=== PATIENT | male | born 1970 | race Caucasian/White ===

== ENCOUNTER 2019-05-24 17:55 | Emergency (ER) | payer MEDICAID ==
[~2019-05-24] VITALS: Ht 175.3 cm; Wt 70.0 kg
[2019-05-24 18:57] LABS: BASOPHILS # (AUTO) 0.1 X10'3 (0-0.2); BASOPHILS % (AUTO) 0.7 % (0-1); EOSINOPHILS # (AUTO) 0.1 X10'3 (0-0.9); EOSINOPHILS % (AUTO) 1.6 % (0-6); HEMATOCRIT 43.6 % (42.0-52.0); HEMOGLOBIN 15.4 g/dl (14.0-17.9); LYMPHOCYTES % (AUTO) 11.7 % (21-51); MEAN CORPUSCULAR HEMOGLOBIN 32.3 PG (27.0-31.0); MEAN CORPUSCULAR HGB CONC 35.2 g/dL (33.0-36.5); MEAN CORPUSCULAR VOLUME 91.6 FL (78-98); MEAN PLATELET VOLUME 7.1 FL (7.4-10.4); MONOCYTES # (AUTO) 0.5 X10'3 (0-0.9); MONOCYTES % (AUTO) 6.1 % (2-12); NEUTROPHILS % (AUTO) 79.9 % (42-75); PLATELET COUNT 326 X10'3 (140-440); RED BLOOD COUNT 4.76 X10'6 (4.70-6.10); RED CELL DISTRIBUTION WIDTH 13.3 % (11.5-14.5); WHITE BLOOD COUNT 8.8 X10'3 (4.5-11.0)
[2019-05-24 19:05] LABS: URINE AMPHETAMINE SCREEN NEGATIVE (Neg); URINE BARBITUATE SCREEN NEGATIVE (Neg); URINE BENZODIAZEPINES SCREEN NEGATIVE (Neg); URINE CANNABINOID SCREEN NEGATIVE (Neg); URINE COCAINE SCREEN NEGATIVE (Neg); URINE METHADONE SCREEN NEGATIVE (Neg); URINE OPIATE SCREEN NEGATIVE (Neg); URINE PHENCYCLIDINE SCREEN NEGATIVE (Neg)
[2019-05-24 19:06] LABS: ALANINE AMINOTRANSFERASE 28 U/L (12-78); ALBUMIN 3.4 G/DL (3.4-5.0); ALKALINE PHOSPHATASE 97 IU/L (46-116); ANION GAP 11 (8-16); ASPARTATE AMINO TRANSFERASE 19 U/L (10-37); BILIRUBIN,TOTAL 0.3 MG/DL (0.1-1.0); BLOOD UREA NITROGEN 12 MG/DL (7-18); BUN/CREATININE RATIO 12.5 (5.4-32.0); CALCIUM 7.8 MG/DL (8.5-10.1); CHLORIDE 104 MMOL/L (99-107); CREATININE 0.96 MG/DL (0.60-1.10); ETHANOL 0.208 GM/DL (0.0-0.010); GLUCOSE 102 MG/DL (70-104); POTASSIUM 3.6 MMOL/L (3.5-5.1); SODIUM 141 MMOL/L (135-145); TOTAL CARBON DIOXIDE 26.1 MMOL/L (24-32); TOTAL PROTEIN 6.7 G/DL (6.4-8.2); eGFR 84 ML/MIN
[2019-05-24 20:34] VITALS: BP 118/66
== END 2019-05-24 20:35 | disposition home or self-care (01) ==
LOC: ER 17:56
DX: F41.9 Anxiety disorder, unspecified (principal); F10.920 Alcohol use, unspecified with intoxication, uncomplicated; F31.9 Bipolar disorder, unspecified; F29 Unspecified psychosis not due to a substance or known physiological condition; F15.90 Other stimulant use, unspecified, uncomplicated; Z88.8 Allergy status to other drugs, medicaments and biological substances; Y90.9 Presence of alcohol in blood, level not specified
CPT/HCPCS: 36415; 80053; 80305; 80320; 85025; 99284

== ENCOUNTER 2019-06-20 20:06 | Emergency (ER) | payer MEDICAID ==
[~2019-06-20] VITALS: Ht 175.3 cm; Wt 68.2 kg
[2019-06-20 21:23] LABS: BASOPHILS % (AUTO) 0.7 % (0-1); EOSINOPHILS % (AUTO) 0.2 % (0-6); HEMATOCRIT 40.3 % (42.0-52.0); HEMOGLOBIN 14.4 g/dl (14.0-17.9); LYMPHOCYTES # (AUTO) 0.7 X10'3 (1.1-4.8); MEAN CORPUSCULAR HEMOGLOBIN 31.5 PG (27.0-31.0); MEAN CORPUSCULAR HGB CONC 35.6 g/dL (33.0-36.5); MEAN CORPUSCULAR VOLUME 88.6 FL (78-98); MEAN PLATELET VOLUME 6.3 FL (7.4-10.4); MONOCYTES # (AUTO) 0.4 X10'3 (0-0.9); MONOCYTES % (AUTO) 8.3 % (2-12); NEUTROPHILS # (AUTO) 3.3 X10'3 (1.8-7.7); NEUTROPHILS % (AUTO) 75.8 % (42-75); PLATELET COUNT 265 X10'3 (140-440); RED BLOOD COUNT 4.55 X10'6 (4.70-6.10); RED CELL DISTRIBUTION WIDTH 12.7 % (11.5-14.5); WHITE BLOOD COUNT 4.4 X10'3 (4.5-11.0)
[2019-06-20 21:32] LABS: ALANINE AMINOTRANSFERASE 103 U/L (12-78); ALBUMIN/GLOBULIN RATIO 1.1 (1.1-1.5); ALKALINE PHOSPHATASE 191 IU/L (46-116); ANION GAP 9 (8-16); ASPARTATE AMINO TRANSFERASE 74 U/L (10-37); BILIRUBIN,TOTAL 0.7 MG/DL (0.1-1.0); BLOOD UREA NITROGEN 10 MG/DL (7-18); BUN/CREATININE RATIO 14.3 (5.4-32.0); CALCIUM 7.6 MG/DL (8.5-10.1); CHLORIDE 104 MMOL/L (99-107); GLUCOSE 115 MG/DL (70-104); POTASSIUM 3.8 MMOL/L (3.5-5.1); SODIUM 144 MMOL/L (135-145); TOTAL CARBON DIOXIDE 30.7 MMOL/L (24-32); TOTAL PROTEIN 5.8 G/DL (6.4-8.2); eGFR > 90 ML/MIN
[2019-06-20 21:34] LABS: TROPONIN I < 0.04 NG/ML (0.0-0.05)
[2019-06-20] MEDS ORDERED: ONDA4TAB6 PO (21:57)
[2019-06-20] MEDS ORDERED: normal saline 1000ML IV soln IVB ONE ×2 (22:30→22:40)
[2019-06-21 00:25] VITALS: BP 151/91
== END 2019-06-21 00:16 | disposition home or self-care (01) ==
LOC: ER 20:07
DX: R07.89 Other chest pain (principal); K29.70 Gastritis, unspecified, without bleeding; R42 Dizziness and giddiness; R11.2 Nausea with vomiting, unspecified; Z88.8 Allergy status to other drugs, medicaments and biological substances
CPT/HCPCS: 36415; 71045; 80053; 84484; 85025; 93005; 96360; 99284; J7030

== ENCOUNTER 2019-08-08 19:42 | Emergency (ER) | payer MEDICAID ==
[~2019-08-08] VITALS: Ht 175.3 cm; Wt 72.7 kg
[~2019-08-08 19:42] MED LIST: ONDA4TAB6 PO
[2019-08-08] MEDS ORDERED: ondansetron/PF 4mg/2ml inj IV ONE ×2 (21:15)
[2019-08-08] MEDS ORDERED: normal saline 1000ML IV soln IVB ONE (21:15)
[2019-08-08] MEDS ORDERED: LORazepam 2 mg/ml vial IV ONE (21:15)
[2019-08-08 21:44] LABS: BASOPHILS % (AUTO) 0.3 % (0-1); EOSINOPHILS % (AUTO) 0.3 % (0-6); HEMATOCRIT 38.8 % (42.0-52.0); HEMOGLOBIN 13.8 g/dl (14.0-17.9); LYMPHOCYTES # (AUTO) 0.9 X10'3 (1.1-4.8); LYMPHOCYTES % (AUTO) 19.6 % (21-51); MEAN CORPUSCULAR HGB CONC 35.6 g/dL (33.0-36.5); MEAN PLATELET VOLUME 7.2 FL (7.4-10.4); MONOCYTES # (AUTO) 0.6 X10'3 (0-0.9); MONOCYTES % (AUTO) 13.2 % (2-12); NEUTROPHILS # (AUTO) 2.9 X10'3 (1.8-7.7); NEUTROPHILS % (AUTO) 66.6 % (42-75); PLATELET COUNT 269 X10'3 (140-440); RED BLOOD COUNT 4.31 X10'6 (4.70-6.10); RED CELL DISTRIBUTION WIDTH 14.1 % (11.5-14.5); WHITE BLOOD COUNT 4.4 X10'3 (4.5-11.0)
[2019-08-08 21:52] LABS: ALANINE AMINOTRANSFERASE 26 U/L (12-78); ALBUMIN 3.5 G/DL (3.4-5.0); ALBUMIN/GLOBULIN RATIO 1.1 (1.1-1.5); ALKALINE PHOSPHATASE 70 IU/L (46-116); ANION GAP 12 (8-16); ASPARTATE AMINO TRANSFERASE 25 U/L (10-37); BILIRUBIN,TOTAL 0.4 MG/DL (0.1-1.0); BLOOD UREA NITROGEN 12 MG/DL (7-18); BUN/CREATININE RATIO 13.3 (5.4-32.0); CALCIUM 8.3 MG/DL (8.5-10.1); CHLORIDE 105 MMOL/L (99-107); ETHANOL 0.052 GM/DL (0.0-0.010); GLUCOSE 101 MG/DL (70-104); LIPASE 95 U/L (73-393); POTASSIUM 3.7 MMOL/L (3.5-5.1); SODIUM 142 MMOL/L (135-145); TOTAL CARBON DIOXIDE 25.4 MMOL/L (24-32); TOTAL PROTEIN 6.6 G/DL (6.4-8.2); eGFR 90 ML/MIN
[2019-08-08] MEDS ORDERED: ONDA4TAB6 PO (22:13)
[2019-08-08] MEDS ORDERED: folic acid 1mg/0.2ml inj IV ONE (22:15)
[2019-08-08] MEDS ORDERED: thiamine 100mg/ml 2ml inj. IV ONE (22:15)
[2019-08-08] MEDS ORDERED: folic acid 1mg tablet PO STA (22:22)
[2019-08-08] MEDS ORDERED: thiamine 100mg tablet PO STA (22:22)
[2019-08-08 22:28] VITALS: BP 153/102
== END 2019-08-08 22:29 | disposition home or self-care (01) ==
LOC: ER 19:42
DX: R11.2 Nausea with vomiting, unspecified (principal); R19.7 Diarrhea, unspecified; F10.129 Alcohol abuse with intoxication, unspecified; F20.9 Schizophrenia, unspecified; F41.9 Anxiety disorder, unspecified; F31.9 Bipolar disorder, unspecified; F29 Unspecified psychosis not due to a substance or known physiological condition; Z88.8 Allergy status to other drugs, medicaments and biological substances; Z79.899 Other long term (current) drug therapy; Y90.9 Presence of alcohol in blood, level not specified
CPT/HCPCS: 36415; 80053; 80320; 83690; 85025; 96361; 96374; 96375; 99284; J2060; J2405; J7030

== ENCOUNTER 2019-09-28 02:10 | Emergency (ER) | payer MEDICAID ==
[~2019-09-28] VITALS: Ht 175.3 cm; Wt 72.7 kg
[2019-09-28] MEDS ORDERED: thiamine 100mg/ml 2ml inj. IV ONE (02:30)
[2019-09-28] MEDS ORDERED: normal saline 1000ml 1,000 ML IV ONE (02:30)
--- NOTE | 2019-09-28 02:41 | NUR ---
pt reported feeling nauseous. informed [facility]-received verbal order for zofran iv 4mg x1 dose now. ordered as requested
[2019-09-28] MEDS ORDERED: ondansetron/PF 4mg/2ml inj IV ONE (02:45)
[2019-09-28 02:48] LABS: BASOPHILS % (AUTO) 0.6 % (0-1); EOSINOPHILS % (AUTO) 0.9 % (0-6); HEMATOCRIT 39.4 % (42.0-52.0); HEMOGLOBIN 13.8 g/dl (14.0-17.9); LYMPHOCYTES # (AUTO) 0.8 X10'3 (1.1-4.8); MEAN CORPUSCULAR HEMOGLOBIN 32.3 PG (27.0-31.0); MEAN CORPUSCULAR HGB CONC 35.1 g/dL (33.0-36.5); MEAN PLATELET VOLUME 7.6 FL (7.4-10.4); MONOCYTES # (AUTO) 0.3 X10'3 (0-0.9); MONOCYTES % (AUTO) 7.8 % (2-12); NEUTROPHILS % (AUTO) 71.7 % (42-75); PLATELET COUNT 242 X10'3 (140-440); RED BLOOD COUNT 4.28 X10'6 (4.70-6.10); RED CELL DISTRIBUTION WIDTH 14.6 % (11.5-14.5); WHITE BLOOD COUNT 4.2 X10'3 (4.5-11.0)
[2019-09-28 02:57] LABS: ALANINE AMINOTRANSFERASE 35 U/L (12-78); ALBUMIN 3.4 G/DL (3.4-5.0); ALBUMIN/GLOBULIN RATIO 1.2 (1.1-1.5); ALKALINE PHOSPHATASE 86 IU/L (46-116); ANION GAP 7 (8-16); ASPARTATE AMINO TRANSFERASE 30 U/L (10-37); BILIRUBIN,TOTAL 0.4 MG/DL (0.1-1.0); BLOOD UREA NITROGEN 5 MG/DL (7-18); BUN/CREATININE RATIO 5.7 (5.4-32.0); CHLORIDE 106 MMOL/L (99-107); CREATININE 0.87 MG/DL (0.60-1.10); GLUCOSE 120 MG/DL (70-104); POTASSIUM 3.2 MMOL/L (3.5-5.1); SODIUM 144 MMOL/L (135-145); TOTAL CARBON DIOXIDE 30.8 MMOL/L (24-32); TOTAL PROTEIN 6.2 G/DL (6.4-8.2); eGFR > 90 ML/MIN
[2019-09-28 03:00] LABS: TROPONIN I < 0.04 NG/ML (0.0-0.05)
[2019-09-28 03:55] VITALS: BP 148/67
== END 2019-09-28 03:56 | disposition home or self-care (01) ==
LOC: ER 02:11
DX: F10.129 Alcohol abuse with intoxication, unspecified (principal); R42 Dizziness and giddiness; R51 Headache; F41.9 Anxiety disorder, unspecified; F31.9 Bipolar disorder, unspecified; R79.1 Abnormal coagulation profile; Z88.8 Allergy status to other drugs, medicaments and biological substances; Z79.899 Other long term (current) drug therapy; Y90.0 Blood alcohol level of less than 20 mg/100 ml
CPT/HCPCS: 36415; 70450; 80053; 80320; 82948; 84484; 85025; 85610; 93005; 96361; 96374; 96375; 99285; J2405; J3411; J7030; 99284

== ENCOUNTER 2019-10-05 15:47 | Emergency (ER) | payer MEDICAID ==
[~2019-10-05] VITALS: Ht 175.3 cm; Wt 75.0 kg
[2019-10-05 16:14] VITALS: BP 127/97
[2019-10-05] MEDS ORDERED: LORazepam 2 mg/ml vial IV ONE (16:20)
[2019-10-05] MEDS ORDERED: normal saline 1000ML IV soln IVB ONE ×2 (16:20→16:55)
[2019-10-05 16:35] LABS: BASOPHILS % (AUTO) 0.4 % (0-1); EOSINOPHILS % (AUTO) 0 % (0-6); HEMOGLOBIN 14.5 g/dl (14.0-17.9); LYMPHOCYTES # (AUTO) 0.7 X10'3 (1.1-4.8); MEAN CORPUSCULAR HEMOGLOBIN 31.9 PG (27.0-31.0); MEAN CORPUSCULAR HGB CONC 34.5 g/dL (33.0-36.5); MEAN CORPUSCULAR VOLUME 92.6 FL (78-98); MEAN PLATELET VOLUME 7.5 FL (7.4-10.4); MONOCYTES # (AUTO) 0.4 X10'3 (0-0.9); MONOCYTES % (AUTO) 9.5 % (2-12); NEUTROPHILS # (AUTO) 3.4 X10'3 (1.8-7.7); NEUTROPHILS % (AUTO) 74.1 % (42-75); PLATELET COUNT 287 X10'3 (140-440); RED BLOOD COUNT 4.54 X10'6 (4.70-6.10); RED CELL DISTRIBUTION WIDTH 14.5 % (11.5-14.5); WHITE BLOOD COUNT 4.7 X10'3 (4.5-11.0)
[2019-10-05 16:46] LABS: ALBUMIN 3.4 G/DL (3.4-5.0); ANION GAP 10 (8-16); CALCIUM 8.2 MG/DL (8.5-10.1); CHLORIDE 104 MMOL/L (99-107); GLUCOSE 119 MG/DL (70-104); SODIUM 140 MMOL/L (135-145); TOTAL CARBON DIOXIDE 26.2 MMOL/L (24-32); eGFR > 90 ML/MIN
[2019-10-05] MEDS ORDERED: potassium Cl 10 mEq/100mL bag IV ONE (16:55)
[2019-10-05] MEDS ORDERED: potassium Cl 20 mEq SR tablet PO ONE (16:55)
[2019-10-05 16:57] LABS: BLOOD UREA NITROGEN 4 MG/DL (7-18); POTASSIUM 2.9 MMOL/L (3.5-5.1)
[2019-10-05] MEDS ORDERED: POTA-82 PO (17:11)
[2019-10-05 17:26] LABS: MAGNESIUM 1.9 MG/DL (1.5-2.4)
--- NOTE | 2019-10-05 18:59 | NUR ---
[facility]AN CALLED FOR PT - WAS TOLD THAT IT WOULD BE A 45 MIN WAIT
== END 2019-10-05 19:17 | disposition home or self-care (01) ==
LOC: ER 15:48
DX: F10.20 Alcohol dependence, uncomplicated (principal); F41.9 Anxiety disorder, unspecified; F15.10 Other stimulant abuse, uncomplicated; E87.6 Hypokalemia; R00.0 Tachycardia, unspecified; R11.10 Vomiting, unspecified; Z88.8 Allergy status to other drugs, medicaments and biological substances; Z79.899 Other long term (current) drug therapy; Y90.9 Presence of alcohol in blood, level not specified
CPT/HCPCS: 36415; 80048; 83735; 85025; 93005; 96361; 96365; 96375; 99284; J2060; J3480; J7030

== ENCOUNTER 2019-10-09 13:14 | Emergency (ER) | payer MEDICAID ==
[~2019-10-09] VITALS: Ht 175.3 cm; Wt 72.7 kg
[~2019-10-09 13:14] MED LIST changes: +POTA-82 PO
[2019-10-09] MEDS ORDERED: LORazepam 2 mg/ml vial IV ONE (13:35)
[2019-10-09] MEDS ORDERED: ondansetron/PF 4mg/2ml inj IV ONE (13:35)
[2019-10-09] MEDS ORDERED: normal saline 1000ML IV soln IVB ONE ×2 (13:35→16:35)
[2019-10-09 14:03] LABS: BASOPHILS % (AUTO) 0.2 % (0-1); EOSINOPHILS % (AUTO) 0 % (0-6); HEMATOCRIT 45.1 % (42.0-52.0); HEMOGLOBIN 15.4 g/dl (14.0-17.9); LYMPHOCYTES # (AUTO) 0.6 X10'3 (1.1-4.8); LYMPHOCYTES % (AUTO) 5.3 % (21-51); MEAN CORPUSCULAR HEMOGLOBIN 31.9 PG (27.0-31.0); MEAN CORPUSCULAR HGB CONC 34.1 g/dL (33.0-36.5); MEAN CORPUSCULAR VOLUME 93.5 FL (78-98); MEAN PLATELET VOLUME 7.6 FL (7.4-10.4); MONOCYTES # (AUTO) 0.8 X10'3 (0-0.9); MONOCYTES % (AUTO) 7.4 % (2-12); NEUTROPHILS # (AUTO) 9.6 X10'3 (1.8-7.7); NEUTROPHILS % (AUTO) 87.1 % (42-75); PLATELET COUNT 271 X10'3 (140-440); RED BLOOD COUNT 4.82 X10'6 (4.70-6.10); WHITE BLOOD COUNT 11.1 X10'3 (4.5-11.0)
[2019-10-09 14:12] LABS: ALANINE AMINOTRANSFERASE 45 U/L (12-78); ALBUMIN 3.6 G/DL (3.4-5.0); ALBUMIN/GLOBULIN RATIO 1.2 (1.1-1.5); ALKALINE PHOSPHATASE 86 IU/L (46-116); ANION GAP 11 (8-16); ASPARTATE AMINO TRANSFERASE 58 U/L (10-37); BILIRUBIN,TOTAL 0.8 MG/DL (0.1-1.0); BLOOD UREA NITROGEN 6 MG/DL (7-18); CALCIUM 8.1 MG/DL (8.5-10.1); CHLORIDE 102 MMOL/L (99-107); CREATININE 1.19 MG/DL (0.60-1.10); GLUCOSE 116 MG/DL (70-104); POTASSIUM 3.4 MMOL/L (3.5-5.1); SODIUM 141 MMOL/L (135-145); TOTAL CARBON DIOXIDE 27.6 MMOL/L (24-32); TOTAL PROTEIN 6.6 G/DL (6.4-8.2); eGFR 65 ML/MIN
[2019-10-09 14:15] LABS: LIPASE 75 U/L (73-393); TROPONIN I < 0.04 NG/ML (0.0-0.05)
[2019-10-09] MEDS ORDERED: phenobarbital inj 260 MG in normal saline 100ml IV soln 100 ML IV ONE (14:20)
[2019-10-09] MEDS ORDERED: ONDA4TAB6 PO (14:21)
[2019-10-09 14:24] LABS: CLARITY,URINE CLEAR (Clear); COLOR,URINE YELLOW (Yellow); GLUCOSE, URINE NEGATIVE (Neg); KETONES,URINE NEGATIVE (Neg); LEUKOCYTE ESTERASE ,URINE NEGATIVE (Neg); NITRITES, URINE NEGATIVE (Neg); OCCULT BLOOD,URINE NEGATIVE (Neg); PH,URINE 6.5 (4.8-8.0); PROTEIN,URINE NEGATIVE (Neg); UROBILINOGEN,URINE 0.2 E.U/dL (0.2-1.0)
[2019-10-09 14:25] LABS: UA COLLECTION TYPE CLN CATCH MIDSTREAM
[2019-10-09 14:45] LABS: ETHANOL < 0.010 GM/DL (0.0-0.010)
[2019-10-09] MEDS ORDERED: phenobarbital inj 130 MG in normal saline 100ml IV soln 100 ML IV ONE (16:30)
[2019-10-09] MEDS ORDERED: thiamine 100mg tablet PO ONE (16:35)
[2019-10-09] MEDS ORDERED: phenobarbital inj 130 MG in normal saline 250ml IV soln 250 ML IV ONE (16:35)
[2019-10-09] MEDS ORDERED: magnesium oxide 400mg tablet PO ONE (16:35)
[2019-10-09] MEDS: phenobarbital inj 130 MG in normal saline 100ml IV soln 100 ML IV ONE ×2 (17:00→17:31)
[2019-10-09 18:23] VITALS: BP 151/101
== END 2019-10-09 18:25 | disposition home or self-care (01) ==
LOC: ER 13:14
DX: K52.9 Noninfective gastroenteritis and colitis, unspecified (principal); F15.10 Other stimulant abuse, uncomplicated; E86.0 Dehydration; N28.9 Disorder of kidney and ureter, unspecified; F41.9 Anxiety disorder, unspecified; F10.239 Alcohol dependence with withdrawal, unspecified; R11.2 Nausea with vomiting, unspecified; R19.7 Diarrhea, unspecified; F31.9 Bipolar disorder, unspecified; Z88.8 Allergy status to other drugs, medicaments and biological substances; Z79.899 Other long term (current) drug therapy; Y90.0 Blood alcohol level of less than 20 mg/100 ml
CPT/HCPCS: 36415; 80053; 80320; 81003; 83690; 84484; 85025; 96361; 96365; 96366; 96375; 96376; 99285; J2060; J2405; J2560; J7030

== ENCOUNTER 2019-10-19 15:44 | Emergency (ER) | payer MEDICAID ==
[~2019-10-19] VITALS: Ht 175.3 cm; Wt 72.0 kg
[2019-10-19 17:01] LABS: BASOPHILS % (AUTO) 0.4 % (0-1); EOSINOPHILS # (AUTO) 0.1 X10'3 (0-0.9); EOSINOPHILS % (AUTO) 2.5 % (0-6); HEMATOCRIT 41.2 % (42.0-52.0); LYMPHOCYTES # (AUTO) 0.7 X10'3 (1.1-4.8); LYMPHOCYTES % (AUTO) 14.5 % (21-51); MEAN CORPUSCULAR HEMOGLOBIN 32.8 PG (27.0-31.0); MEAN CORPUSCULAR HGB CONC 34.1 g/dL (33.0-36.5); MEAN CORPUSCULAR VOLUME 96.4 FL (78-98); MEAN PLATELET VOLUME 7.1 FL (7.4-10.4); MONOCYTES # (AUTO) 0.8 X10'3 (0-0.9); MONOCYTES % (AUTO) 16.9 % (2-12); NEUTROPHILS # (AUTO) 3.1 X10'3 (1.8-7.7); NEUTROPHILS % (AUTO) 65.7 % (42-75); PLATELET COUNT 322 X10'3 (140-440); RED BLOOD COUNT 4.27 X10'6 (4.70-6.10); RED CELL DISTRIBUTION WIDTH 16.5 % (11.5-14.5); WHITE BLOOD COUNT 4.8 X10'3 (4.5-11.0)
[2019-10-19 17:17] LABS: ALANINE AMINOTRANSFERASE 105 U/L (12-78); ALBUMIN 3.3 G/DL (3.4-5.0); ALBUMIN/GLOBULIN RATIO 0.9 (1.1-1.5); ALKALINE PHOSPHATASE 468 IU/L (46-116); ANION GAP 11 (8-16); ASPARTATE AMINO TRANSFERASE 157 U/L (10-37); BILIRUBIN,TOTAL 0.7 MG/DL (0.1-1.0); BLOOD UREA NITROGEN 1 MG/DL (7-18); BUN/CREATININE RATIO 1.2 (5.4-32.0); CALCIUM 8.8 MG/DL (8.5-10.1); CHLORIDE 102 MMOL/L (99-107); CREATININE 0.86 MG/DL (0.60-1.10); GLUCOSE 125 MG/DL (70-104); SODIUM 140 MMOL/L (135-145); TOTAL PROTEIN 6.9 G/DL (6.4-8.2); eGFR > 90 ML/MIN
[2019-10-19 17:22] LABS: POTASSIUM 2.9 MMOL/L (3.5-5.1)
[2019-10-19] MEDS ORDERED: potassium Cl 20 mEq SR tablet PO STA (19:38)
[2019-10-19] MEDS ORDERED: normal saline 1000ML IV soln IVB ONE ×2 (19:40→22:35)
[2019-10-19 19:49] LABS: ETHANOL 0.125 GM/DL (0.0-0.010); LIPASE 1324 U/L (73-393)
--- NOTE | 2019-10-19 19:56 | NUR ---
PT ASKING FOR SOMETHING FOR ANXIETY, PA MADE AWARE.
[2019-10-19] MEDS ORDERED: LORazepam 1 MG tablet PO ONE (20:00)
[2019-10-19] MEDS ORDERED: iohexol 300mg/ml 100ml inj. ONE (20:26)
[2019-10-19 21:08] LABS: D-DIMER 0.39 MG/L FEU (0-0.50)
--- NOTE | 2019-10-19 22:03 | NUR ---
pt is requesting food he cannot eat yet but will give him ice chips
--- NOTE | 2019-10-19 22:20 | NUR ---
gave him food and drink per his request
--- NOTE | 2019-10-19 22:30 | NUR ---
U/S CALLED BACK AT 22:[address] IN
[2019-10-19] MEDS ORDERED: HYDR-3965 PO (23:21)
[2019-10-19] MEDS ORDERED: ONDA4TAB6 PO (23:21)
[2019-10-19 23:37] VITALS: BP 123/75
== END 2019-10-19 23:39 | disposition home or self-care (01) ==
LOC: ER 15:45
DX: K85.90 Acute pancreatitis without necrosis or infection, unspecified (principal); F10.129 Alcohol abuse with intoxication, unspecified; F41.9 Anxiety disorder, unspecified; F31.9 Bipolar disorder, unspecified; Z88.8 Allergy status to other drugs, medicaments and biological substances; Z79.899 Other long term (current) drug therapy; Y90.9 Presence of alcohol in blood, level not specified
CPT/HCPCS: 36415; 71045; 74177; 76700; 80053; 80320; 83690; 84484; 85025; 85379; 93005; 99285; J7030; Q9967

== ENCOUNTER 2019-10-21 16:01 | Emergency (ER) | payer MEDICAID ==
[~2019-10-21] VITALS: Ht 175.3 cm; Wt 81.2 kg
[~2019-10-21 16:01] MED LIST changes: +HYDR-3965 PO
[2019-10-21 16:38] LABS: BASOPHILS % (AUTO) 0.3 % (0-1); EOSINOPHILS # (AUTO) 0.1 X10'3 (0-0.9); EOSINOPHILS % (AUTO) 1.5 % (0-6); HEMATOCRIT 41.3 % (42.0-52.0); LYMPHOCYTES # (AUTO) 0.5 X10'3 (1.1-4.8); MEAN CORPUSCULAR HEMOGLOBIN 33.2 PG (27.0-31.0); MEAN CORPUSCULAR VOLUME 97.6 FL (78-98); MEAN PLATELET VOLUME 7.5 FL (7.4-10.4); MONOCYTES # (AUTO) 0.5 X10'3 (0-0.9); MONOCYTES % (AUTO) 7.2 % (2-12); NEUTROPHILS # (AUTO) 6.1 X10'3 (1.8-7.7); PLATELET COUNT 331 X10'3 (140-440); RED BLOOD COUNT 4.23 X10'6 (4.70-6.10); RED CELL DISTRIBUTION WIDTH 16.1 % (11.5-14.5); WHITE BLOOD COUNT 7.3 X10'3 (4.5-11.0)
[2019-10-21 16:40] LABS: CLARITY,URINE CLEAR (Clear); COLOR,URINE YELLOW (Yellow); GLUCOSE, URINE NEGATIVE (Neg); KETONES,URINE NEGATIVE (Neg); LEUKOCYTE ESTERASE ,URINE NEGATIVE (Neg); NITRITES, URINE NEGATIVE (Neg); OCCULT BLOOD,URINE NEGATIVE (Neg); PROTEIN,URINE NEGATIVE (Neg); UROBILINOGEN,URINE 0.2 E.U/dL (0.2-1.0)
[2019-10-21 16:43] LABS: UA COLLECTION TYPE VOIDED
[2019-10-21 16:53] LABS: ALANINE AMINOTRANSFERASE 82 U/L (12-78); ALBUMIN 3.1 G/DL (3.4-5.0); ALBUMIN/GLOBULIN RATIO 0.9 (1.1-1.5); ALKALINE PHOSPHATASE 452 IU/L (46-116); ANION GAP 13 (8-16); ASPARTATE AMINO TRANSFERASE 71 U/L (10-37); BILIRUBIN,TOTAL 0.9 MG/DL (0.1-1.0); BLOOD UREA NITROGEN 8 MG/DL (7-18); BUN/CREATININE RATIO 8.8 (5.4-32.0); CALCIUM 8.5 MG/DL (8.5-10.1); CHLORIDE 101 MMOL/L (99-107); CREATININE 0.91 MG/DL (0.60-1.10); ETHANOL 0.125 GM/DL (0.0-0.010); GLUCOSE 149 MG/DL (70-104); LIPASE 253 U/L (73-393); POTASSIUM 3.3 MMOL/L (3.5-5.1); SODIUM 137 MMOL/L (135-145); TOTAL CARBON DIOXIDE 22.9 MMOL/L (24-32); TOTAL PROTEIN 6.5 G/DL (6.4-8.2); eGFR 89 ML/MIN
[2019-10-21] MEDS ORDERED: dextrose 50%-water 50ml dispensing syringe IV ONE (17:05)
[2019-10-21] MEDS ORDERED: LORazepam 2 mg/ml vial IV ONE (18:20)
[2019-10-21] MEDS ORDERED: normal saline 1000ML IV soln IVB ONE (18:20)
[2019-10-21] MEDS ORDERED: LIDOcaine Viscous 15ml cup TP ONE (18:20)
[2019-10-21] MEDS ORDERED: mag hydrox/Alum hydrox/simeth 30ml oral suspension PO ONE (18:20)
[2019-10-21 18:40] VITALS: BP 100/70
== END 2019-10-21 19:10 | disposition home or self-care (01) ==
LOC: ER 16:02
DX: K29.20 Alcoholic gastritis without bleeding (principal); K85.20 Alcohol induced acute pancreatitis without necrosis or infection; F10.129 Alcohol abuse with intoxication, unspecified; F41.9 Anxiety disorder, unspecified; F31.9 Bipolar disorder, unspecified; Z88.8 Allergy status to other drugs, medicaments and biological substances; Z79.899 Other long term (current) drug therapy; Y90.0 Blood alcohol level of less than 20 mg/100 ml
CPT/HCPCS: 36415; 71045; 80053; 80320; 81003; 83690; 83735; 84484; 85025; 93005; 96361; 96374; 99285; J2060; J7030

== ENCOUNTER 2019-10-24 15:59 | Emergency (ER) | payer MEDICAID ==
[~2019-10-24] VITALS: Ht 175.3 cm; Wt 70.5 kg
[2019-10-24] MEDS ORDERED: ketorolac trometh. 30mg/ml inj. IV ONE (16:10)
[2019-10-24] MEDS ORDERED: normal saline 1000ML IV soln IVB ONE (16:10)
[2019-10-24] MEDS ORDERED: famotidine/PF 10 mg/ml inj IV ONE (16:10)
[2019-10-24] MEDS ORDERED: ondansetron/PF 4mg/2ml inj IV ONE (16:15)
[2019-10-24 16:38] LABS: BASOPHILS % (AUTO) 0.6 % (0-1); EOSINOPHILS # (AUTO) 0.2 X10'3 (0-0.9); EOSINOPHILS % (AUTO) 3.7 % (0-6); HEMATOCRIT 40.5 % (42.0-52.0); HEMOGLOBIN 13.7 g/dl (14.0-17.9); LYMPHOCYTES # (AUTO) 0.4 X10'3 (1.1-4.8); LYMPHOCYTES % (AUTO) 8.6 % (21-51); MEAN CORPUSCULAR HEMOGLOBIN 32.7 PG (27.0-31.0); MEAN CORPUSCULAR HGB CONC 33.9 g/dL (33.0-36.5); MEAN CORPUSCULAR VOLUME 96.4 FL (78-98); MEAN PLATELET VOLUME 7.5 FL (7.4-10.4); MONOCYTES # (AUTO) 0.3 X10'3 (0-0.9); MONOCYTES % (AUTO) 8.1 % (2-12); NEUTROPHILS # (AUTO) 3.3 X10'3 (1.8-7.7); PLATELET COUNT 393 X10'3 (140-440); RED CELL DISTRIBUTION WIDTH 16.3 % (11.5-14.5); WHITE BLOOD COUNT 4.2 X10'3 (4.5-11.0)
[2019-10-24 16:49] LABS: ALANINE AMINOTRANSFERASE 101 U/L (12-78); ALBUMIN 3.1 G/DL (3.4-5.0); ALKALINE PHOSPHATASE 614 IU/L (46-116); ANION GAP 7 (8-16); ASPARTATE AMINO TRANSFERASE 106 U/L (10-37); BLOOD UREA NITROGEN 4 MG/DL (7-18); BUN/CREATININE RATIO 4.2 (5.4-32.0); CALCIUM 8.4 MG/DL (8.5-10.1); CHLORIDE 105 MMOL/L (99-107); CREATININE 0.96 MG/DL (0.60-1.10); GLUCOSE 190 MG/DL (70-104); LIPASE 486 U/L (73-393); SODIUM 137 MMOL/L (135-145); TOTAL CARBON DIOXIDE 24.7 MMOL/L (24-32); TOTAL PROTEIN 6.3 G/DL (6.4-8.2); eGFR 83 ML/MIN
[2019-10-24 17:00] LABS: ETHANOL < 0.010 GM/DL (0.0-0.010)
[2019-10-24] MEDS ORDERED: ONDA4TAB6 PO (17:23)
[2019-10-24] MEDS ORDERED: NAPR-56 PO (17:23)
[2019-10-24] MEDS ORDERED: HYDR-4383 PO (17:23)
--- NOTE | 2019-10-24 17:32 | NUR ---
upon arrival pt. did not complain of chest pain, now is stating he feels chest pressure. MD NOTIFIED and orders recieved. LABS, ANG EKG BEING DONE.
[2019-10-24 17:55] LABS: TROPONIN I < 0.04 NG/ML (0.0-0.05)
[2019-10-24 18:15] VITALS: BP 139/93
--- NOTE | 2019-10-24 18:22 | NUR ---
PT HAS ONLY RECEIVED 2LITERS NS, Magalie MCDANIELS GAVE VERBAL ORDER TO DC PT, 3RD LITER NS NOT NEEDED
== END 2019-10-24 18:22 | disposition home or self-care (01) ==
LOC: ER 15:59
DX: K85.90 Acute pancreatitis without necrosis or infection, unspecified (principal); R11.2 Nausea with vomiting, unspecified; F41.9 Anxiety disorder, unspecified; F31.9 Bipolar disorder, unspecified; Z72.89 Other problems related to lifestyle; Z88.8 Allergy status to other drugs, medicaments and biological substances; Z79.899 Other long term (current) drug therapy
CPT/HCPCS: 36415; 80053; 80320; 83690; 84484; 85025; 93005; 96361; 96374; 96375; 99284; J1885; J2405; J3490; J7030

== ENCOUNTER 2019-12-03 09:53 | Emergency (ER) | payer MEDICAID ==
[~2019-12-03] VITALS: Ht 175.3 cm; Wt 75.0 kg
[~2019-12-03 09:53] MED LIST changes: -HYDR-3965 PO; +HYDR-4383 PO
[2019-12-03 10:42] LABS: BASOPHILS % (AUTO) 0.3 % (0-1); EOSINOPHILS % (AUTO) 0.1 % (0-6); HEMATOCRIT 41.6 % (42.0-52.0); HEMOGLOBIN 14.2 g/dl (14.0-17.9); LYMPHOCYTES # (AUTO) 0.7 X10'3 (1.1-4.8); LYMPHOCYTES % (AUTO) 8.9 % (21-51); MEAN CORPUSCULAR HEMOGLOBIN 31.9 PG (27.0-31.0); MEAN CORPUSCULAR HGB CONC 34.2 g/dL (33.0-36.5); MEAN CORPUSCULAR VOLUME 93.1 FL (78-98); MEAN PLATELET VOLUME 8.3 FL (7.4-10.4); MONOCYTES # (AUTO) 0.9 X10'3 (0-0.9); MONOCYTES % (AUTO) 10.6 % (2-12); NEUTROPHILS # (AUTO) 6.6 X10'3 (1.8-7.7); NEUTROPHILS % (AUTO) 80.1 % (42-75); PLATELET COUNT 323 X10'3 (140-440); RED BLOOD COUNT 4.47 X10'6 (4.70-6.10); RED CELL DISTRIBUTION WIDTH 13.6 % (11.5-14.5); WHITE BLOOD COUNT 8.3 X10'3 (4.5-11.0)
[2019-12-03 10:54] LABS: ALANINE AMINOTRANSFERASE 32 U/L (12-78); ALBUMIN/GLOBULIN RATIO 1.1 (1.1-1.5); ALKALINE PHOSPHATASE 60 IU/L (46-116); ANION GAP 14 (8-16); ASPARTATE AMINO TRANSFERASE 21 U/L (10-37); BILIRUBIN,TOTAL 0.5 MG/DL (0.1-1.0); BLOOD UREA NITROGEN 9 MG/DL (7-18); BUN/CREATININE RATIO 8.6 (5.4-32.0); CALCIUM 8.6 MG/DL (8.5-10.1); CHLORIDE 100 MMOL/L (99-107); CREATININE 1.05 MG/DL (0.60-1.10); GLUCOSE 113 MG/DL (70-104); POTASSIUM 3.1 MMOL/L (3.5-5.1); SODIUM 141 MMOL/L (135-145); TOTAL CARBON DIOXIDE 27.4 MMOL/L (24-32); TOTAL PROTEIN 7.5 G/DL (6.4-8.2); eGFR 75 ML/MIN
[2019-12-03 11:10] LABS: CLARITY,URINE CLEAR (Clear); COLOR,URINE STRAW (Yellow); GLUCOSE, URINE NEGATIVE (Neg); KETONES,URINE NEGATIVE (Neg); LEUKOCYTE ESTERASE ,URINE NEGATIVE (Neg); NITRITES, URINE NEGATIVE (Neg); OCCULT BLOOD,URINE NEGATIVE (Neg); PROTEIN,URINE NEGATIVE (Neg); UROBILINOGEN,URINE 0.2 E.U/dL (0.2-1.0)
[2019-12-03] MEDS ORDERED: normal saline 1000ML IV soln IVB ONE ×2 (11:15→11:55)
[2019-12-03] MEDS ORDERED: ondansetron/PF 4mg/2ml inj IV ONE (11:15)
[2019-12-03 11:22] LABS: UA COLLECTION TYPE URINAL
--- NOTE | 2019-12-03 11:23 | NUR ---
PATIENT STATES NAUSEA AND VOMITING WITH ABDOMINAL PAIN X 3 DAYS. STATES HE WAS DX WITH PANCREATITIS ON 11/18 AND HAD STOPPED DRINKING FOR ABOUT 10 DAYS, BUT STARTED DRINKING AGAIN PRIOR TO BECOMING ILL 3 DAYS AGO. HX ETOH ABUSE AND GASTRITIS. PATIENT FOUND STICKING FINGER IN THROAT TO EMIT VOMITING, BUT ONLY SMALL AMOUNT OF CLEAR FLUID VOMITTED. IV IN PLACE WITH FLUIDS INFUSING WELL. PATIENT STATES HX ANXIETY. MEDICATED FOR NAUSEA.
[2019-12-03] MEDS ORDERED: ketorolac trometh. 30mg/ml inj. IV ONE (11:55)
[2019-12-03] MEDS ORDERED: LORazepam 2 mg/ml vial IV ONE (12:20)
[2019-12-03] MEDS ORDERED: ONDA4TAB6 PO (13:16)
[2019-12-03 13:25] VITALS: BP 120/91
== END 2019-12-03 13:27 | disposition home or self-care (01) ==
LOC: ER 09:54
DX: R11.2 Nausea with vomiting, unspecified (principal); R19.7 Diarrhea, unspecified; R07.89 Other chest pain; M79.18 Myalgia, other site; F41.9 Anxiety disorder, unspecified; F31.9 Bipolar disorder, unspecified; Z72.89 Other problems related to lifestyle; Z88.8 Allergy status to other drugs, medicaments and biological substances; Z79.899 Other long term (current) drug therapy
CPT/HCPCS: 36415; 71045; 80053; 81003; 84484; 85025; 93005; 96361; 96374; 96375; 99285; J1885; J2060; J2405; J7030

== ENCOUNTER 2020-01-04 15:57 | Emergency (ER) | payer MEDICAID ==
[~2020-01-04] VITALS: Ht 175.3 cm; Wt 75.0 kg
[2020-01-04] MEDS ORDERED: normal saline 1000ML IV soln IVB ONE ×2 (17:35→18:40)
[2020-01-04 18:01] LABS: BASOPHILS % (AUTO) 0.4 % (0-1); EOSINOPHILS % (AUTO) 0 % (0-6); HEMOGLOBIN 14.5 g/dl (14.0-17.9); LYMPHOCYTES # (AUTO) 1.1 X10'3 (1.1-4.8); LYMPHOCYTES % (AUTO) 13.1 % (21-51); MEAN CORPUSCULAR HEMOGLOBIN 31.8 PG (27.0-31.0); MEAN CORPUSCULAR HGB CONC 34.5 g/dL (33.0-36.5); MEAN CORPUSCULAR VOLUME 92.1 FL (78-98); MEAN PLATELET VOLUME 7.9 FL (7.4-10.4); MONOCYTES # (AUTO) 0.8 X10'3 (0-0.9); MONOCYTES % (AUTO) 9.1 % (2-12); NEUTROPHILS # (AUTO) 6.5 X10'3 (1.8-7.7); NEUTROPHILS % (AUTO) 77.4 % (42-75); PLATELET COUNT 371 X10'3 (140-440); RED BLOOD COUNT 4.56 X10'6 (4.70-6.10); RED CELL DISTRIBUTION WIDTH 12.9 % (11.5-14.5); WHITE BLOOD COUNT 8.4 X10'3 (4.5-11.0)
[2020-01-04 18:16] LABS: ALANINE AMINOTRANSFERASE 29 U/L (12-78); ALBUMIN 3.9 G/DL (3.4-5.0); ALBUMIN/GLOBULIN RATIO 1.2 (1.1-1.5); ALKALINE PHOSPHATASE 63 IU/L (46-116); ANION GAP 7 (8-16); ASPARTATE AMINO TRANSFERASE 20 U/L (10-37); BILIRUBIN,TOTAL 0.5 MG/DL (0.1-1.0); BLOOD UREA NITROGEN 10 MG/DL (7-18); BUN/CREATININE RATIO 11.6 (5.4-32.0); CALCIUM 8.6 MG/DL (8.5-10.1); CHLORIDE 96 MMOL/L (99-107); CREATININE 0.86 MG/DL (0.60-1.10); GLUCOSE 137 MG/DL (70-104); LIPASE 143 U/L (73-393); SODIUM 138 MMOL/L (135-145); TOTAL CARBON DIOXIDE 34.6 MMOL/L (24-32); TOTAL PROTEIN 7.1 G/DL (6.4-8.2); eGFR > 90 ML/MIN
[2020-01-04 18:28] LABS: POTASSIUM 2.5 MMOL/L (3.5-5.1)
[2020-01-04] MEDS ORDERED: potassium chloride 10mEq ER tablet PO STA (18:36)
[2020-01-04] MEDS ORDERED: potassium Cl 10 mEq/100mL bag IV ONE (18:40)
--- NOTE | 2020-01-04 18:46 | NUR ---
Pt with extreme anxiety , he reports, and states ativan helps. States repeatedly i need to leave and keeps getting up and taking off his VS monitoring cords. I told him if he is given ativan he must stay here until we can safely discharge him and he will not be allowed to leave until MD clears him. Pt is agreeable to this plan. Also told that we would help he to get a ride home once dc ready. states also nausea and keeps repeating "i feel sick". K 2.5, replacement ordered. verbal from ENEDELIA Covarrubias for zofran 4 mg iv x1 and ativan 1 mg iv x 1 now.
[2020-01-04] MEDS ORDERED: LORazepam 2 mg/ml vial IV ONE (18:50)
[2020-01-04] MEDS ORDERED: ondansetron/PF 4mg/2ml inj IV ONE (18:50)
--- NOTE | 2020-01-04 19:14 | NUR ---
PT GIVEN SANDWICH AND CRACKERS AND JUICE. PT DRANK THE WHOLE CUP OF APPLE JUICE. GIVEN ZOFRANAND ATIVAN IV AND KCHLORIDE 10 MEQ STARTED *(TO RUN OVER 1 HR) AND 2ND BAG ORDERED. PT TOLD HE WILL NEED TO STAY FOR THE NEXT COUPLE HRS TO RECEIVE THE MEDS.
[2020-01-04 21:40] VITALS: BP 107/74
== END 2020-01-04 21:42 | disposition home or self-care (01) ==
LOC: ER 15:57
DX: F10.129 Alcohol abuse with intoxication, unspecified (principal); R11.2 Nausea with vomiting, unspecified; R10.13 Epigastric pain; E87.6 Hypokalemia; F41.9 Anxiety disorder, unspecified; F31.9 Bipolar disorder, unspecified; Z88.8 Allergy status to other drugs, medicaments and biological substances; Z79.899 Other long term (current) drug therapy; Y90.0 Blood alcohol level of less than 20 mg/100 ml
CPT/HCPCS: 36415; 80053; 80320; 83690; 85025; 96361; 96365; 96375; 99285; J2060; J2405; J3480; J7030

== ENCOUNTER 2020-01-15 07:27 | Emergency (ER) | payer MEDICAID ==
[~2020-01-15] VITALS: Ht 175.3 cm; Wt 77.3 kg
[2020-01-15] MEDS ORDERED: diazepam inj 5 MG/ML inj. IV ONE (08:25)
[2020-01-15 08:28] LABS: BASOPHILS % (AUTO) 0.4 % (0-1); EOSINOPHILS % (AUTO) 0.2 % (0-6); HEMATOCRIT 38.4 % (42.0-52.0); HEMOGLOBIN 13.2 g/dl (14.0-17.9); LYMPHOCYTES # (AUTO) 0.6 X10'3 (1.1-4.8); LYMPHOCYTES % (AUTO) 11.9 % (21-51); MEAN CORPUSCULAR HEMOGLOBIN 31.6 PG (27.0-31.0); MEAN CORPUSCULAR HGB CONC 34.3 g/dL (33.0-36.5); MEAN CORPUSCULAR VOLUME 92.1 FL (78-98); MEAN PLATELET VOLUME 7.5 FL (7.4-10.4); MONOCYTES # (AUTO) 0.9 X10'3 (0-0.9); NEUTROPHILS # (AUTO) 3.6 X10'3 (1.8-7.7); NEUTROPHILS % (AUTO) 69.5 % (42-75); PLATELET COUNT 322 X10'3 (140-440); RED BLOOD COUNT 4.17 X10'6 (4.70-6.10); RED CELL DISTRIBUTION WIDTH 13.6 % (11.5-14.5); WHITE BLOOD COUNT 5.2 X10'3 (4.5-11.0)
[2020-01-15] MEDS: dextrose 5%-normal saline 1,000 ML IV SCH ×2 (08:50→09:32)
[2020-01-15 08:51] LABS: ALANINE AMINOTRANSFERASE 48 U/L (12-78); ALBUMIN 3.3 G/DL (3.4-5.0); ALKALINE PHOSPHATASE 303 IU/L (46-116); ANION GAP 13 (8-16); ASPARTATE AMINO TRANSFERASE 32 U/L (10-37); BILIRUBIN,TOTAL 0.5 MG/DL (0.1-1.0); BLOOD UREA NITROGEN 7 MG/DL (7-18); BUN/CREATININE RATIO 6.9 (5.4-32.0); CALCIUM 8.3 MG/DL (8.5-10.1); CHLORIDE 99 MMOL/L (99-107); CREATININE 1.02 MG/DL (0.60-1.10); GLUCOSE 131 MG/DL (70-104); LIPASE 167 U/L (73-393); POTASSIUM 3.2 MMOL/L (3.5-5.1); SODIUM 141 MMOL/L (135-145); TOTAL CARBON DIOXIDE 28.7 MMOL/L (24-32); TOTAL PROTEIN 6.6 G/DL (6.4-8.2); eGFR 78 ML/MIN
--- NOTE | 2020-01-15 09:35 | NUR ---
PT WAS NOT GIVEN A 2ND LITER BAG OF 5DNS, CHARTED BY ACCIDENT.
[2020-01-15 10:04] LABS: OCCULT BLOOD STOOL NEGATIVE (Neg)
--- NOTE | 2020-01-15 10:15 | NUR ---
Resumed care of patient. Patient observed sitting comfortably with no signs of distress.
[2020-01-15 10:56] LABS: STOMATOCYTES 1+; TOTAL CELLS COUNTED 100
[2020-01-15 10:57] LABS: PLATELET ESTIMATE NORMAL; POLYCHROMASIA FEW
[2020-01-15 10:58] LABS: ELLIPTOCYTES FEW; LARGE PLATELETS FEW
[2020-01-15] MEDS ORDERED: potassium Cl 20 mEq SR tablet PO STA (11:27)
[2020-01-15 11:42] VITALS: BP 154/95
== END 2020-01-15 11:45 | disposition home or self-care (01) ==
LOC: ER 07:28
DX: F10.20 Alcohol dependence, uncomplicated (principal); E87.6 Hypokalemia; R10.84 Generalized abdominal pain; R07.89 Other chest pain; I25.2 Old myocardial infarction; R42 Dizziness and giddiness; R53.1 Weakness; R11.2 Nausea with vomiting, unspecified; F41.9 Anxiety disorder, unspecified; F31.9 Bipolar disorder, unspecified; Z88.8 Allergy status to other drugs, medicaments and biological substances; Z79.899 Other long term (current) drug therapy; Y90.9 Presence of alcohol in blood, level not specified
CPT/HCPCS: 36415; 71045; 80053; 82272; 83690; 83880; 84484; 85007; 85025; 93005; 96361; 96374; 99285; J3360; J7042

== ENCOUNTER 2020-01-17 10:55 | Emergency (ER) | payer MEDICAID ==
[~2020-01-17] VITALS: Ht 175.3 cm; Wt 77.3 kg
[2020-01-17] MEDS ORDERED: ondansetron/PF 4mg/2ml inj IV ONE ×2 (11:50→14:20)
[2020-01-17] MEDS ORDERED: normal saline 1000ML IV soln IVB ONE ×2 (11:50→12:50)
[2020-01-17] MEDS ORDERED: LORazepam 2 mg/ml vial IV ONE ×3 (11:50→15:15)
[2020-01-17 12:17] LABS: BASOPHILS % (AUTO) 0.4 % (0-1); EOSINOPHILS % (AUTO) 0 % (0-6); HEMATOCRIT 39.7 % (42.0-52.0); HEMOGLOBIN 13.5 g/dl (14.0-17.9); LYMPHOCYTES # (AUTO) 0.7 X10'3 (1.1-4.8); LYMPHOCYTES % (AUTO) 14.9 % (21-51); MEAN CORPUSCULAR HEMOGLOBIN 31.2 PG (27.0-31.0); MEAN CORPUSCULAR HGB CONC 33.9 g/dL (33.0-36.5); MEAN PLATELET VOLUME 7.3 FL (7.4-10.4); MONOCYTES # (AUTO) 0.6 X10'3 (0-0.9); MONOCYTES % (AUTO) 13.3 % (2-12); NEUTROPHILS # (AUTO) 3.5 X10'3 (1.8-7.7); NEUTROPHILS % (AUTO) 71.4 % (42-75); PLATELET COUNT 349 X10'3 (140-440); RED BLOOD COUNT 4.31 X10'6 (4.70-6.10); RED CELL DISTRIBUTION WIDTH 13.6 % (11.5-14.5); WHITE BLOOD COUNT 4.8 X10'3 (4.5-11.0)
[2020-01-17 12:26] LABS: ALANINE AMINOTRANSFERASE 144 U/L (12-78); ALBUMIN 3.2 G/DL (3.4-5.0); ALKALINE PHOSPHATASE 415 IU/L (46-116); ANION GAP 9 (8-16); ASPARTATE AMINO TRANSFERASE 140 U/L (10-37); BILIRUBIN,TOTAL 0.5 MG/DL (0.1-1.0); BLOOD UREA NITROGEN 4 MG/DL (7-18); BUN/CREATININE RATIO 5.3 (5.4-32.0); CALCIUM 8.3 MG/DL (8.5-10.1); CHLORIDE 103 MMOL/L (99-107); CREATININE 0.75 MG/DL (0.60-1.10); GLUCOSE 129 MG/DL (70-104); LIPASE 132 U/L (73-393); POTASSIUM 3.3 MMOL/L (3.5-5.1); SODIUM 144 MMOL/L (135-145); TOTAL CARBON DIOXIDE 32.3 MMOL/L (24-32); TOTAL PROTEIN 6.4 G/DL (6.4-8.2); eGFR > 90 ML/MIN
[2020-01-17] MEDS ORDERED: metoclopramide 5 mg/ml inj IV ONE (12:55)
[2020-01-17] MEDS ORDERED: thiamine 100mg tablet PO ONE (14:15)
[2020-01-17] MEDS ORDERED: magnesium oxide 400mg tablet PO ONE (14:15)
[2020-01-17 14:30] LABS: CLARITY,URINE SLIGHTLY CLOUDY (Clear); COLOR,URINE YELLOW (Yellow); GLUCOSE, URINE NEGATIVE (Neg); KETONES,URINE NEGATIVE (Neg); LEUKOCYTE ESTERASE ,URINE NEGATIVE (Neg); NITRITES, URINE NEGATIVE (Neg); OCCULT BLOOD,URINE NEGATIVE (Neg); PROTEIN,URINE TRACE mg/dl (Neg); UROBILINOGEN,URINE 0.2 E.U/dL (0.2-1.0)
[2020-01-17 14:35] LABS: UA COLLECTION TYPE CLN CATCH MIDSTREAM
[2020-01-17 14:37] LABS: BACTERIA,URINE NONE SEEN /HPF (Neg); MUCUS STRANDS NONE SEEN /LPF (Neg); RBC,URINE NONE SEEN /HPF (0-2); SQUAMOUS EPITHELIAL CELL,UR FEW /LPF (FEW); WBC,URINE 0-4 /HPF (0-4)
--- NOTE | 2020-01-17 14:55 | NUR ---
pt reports drinking `
--- NOTE | 2020-01-17 14:55 | NUR ---
Pt reports drinking 10, 16oz beer on 01/15 0800. Pt reports that he binge drinks.
[2020-01-17] MEDS ORDERED: phenobarbital inj 260 MG in normal saline 100ml IV soln 100 ML IV ONE (15:20)
--- NOTE | 2020-01-17 16:43 | NUR ---
Pt was very sleepy. Pt given water and a turkey sandwich. Pt awake once given the sandwich and eating it without difficulty.
[2020-01-17 17:09] VITALS: BP 150/95
--- NOTE | 2020-01-17 17:12 | NUR ---
Pt ambulated out of department by himself with a steady gait.
== END 2020-01-17 17:12 | disposition home or self-care (01) ==
LOC: ER 10:55
DX: R11.2 Nausea with vomiting, unspecified (principal); F10.129 Alcohol abuse with intoxication, unspecified; R19.7 Diarrhea, unspecified; R10.84 Generalized abdominal pain; F41.9 Anxiety disorder, unspecified; F31.9 Bipolar disorder, unspecified; Z88.8 Allergy status to other drugs, medicaments and biological substances; Z79.899 Other long term (current) drug therapy; Y90.9 Presence of alcohol in blood, level not specified
CPT/HCPCS: 36415; 80053; 81001; 83690; 85025; 96361; 96374; 96375; 96376; 99285; J2060; J2405; J2765; J7030

== ENCOUNTER 2020-01-19 08:41 | Inpatient (IN) | payer MEDICAID ==
[~2020-01-19] VITALS: Ht 167.6 cm; Wt 75.0 kg
[2020-01-19 09:27] LABS: BASOPHILS % (AUTO) 0.4 % (0-1); EOSINOPHILS % (AUTO) 0.3 % (0-6); HEMATOCRIT 39.2 % (42.0-52.0); HEMOGLOBIN 13.7 g/dl (14.0-17.9); LYMPHOCYTES # (AUTO) 0.7 X10'3 (1.1-4.8); LYMPHOCYTES % (AUTO) 6.9 % (21-51); MEAN CORPUSCULAR HEMOGLOBIN 32.5 PG (27.0-31.0); MEAN CORPUSCULAR HGB CONC 35.1 g/dL (33.0-36.5); MEAN CORPUSCULAR VOLUME 92.7 FL (78-98); MEAN PLATELET VOLUME 7.2 FL (7.4-10.4); MONOCYTES # (AUTO) 0.6 X10'3 (0-0.9); MONOCYTES % (AUTO) 6.3 % (2-12); NEUTROPHILS # (AUTO) 8.3 X10'3 (1.8-7.7); NEUTROPHILS % (AUTO) 86.1 % (42-75); PLATELET COUNT 342 X10'3 (140-440); RED BLOOD COUNT 4.23 X10'6 (4.70-6.10); RED CELL DISTRIBUTION WIDTH 13.5 % (11.5-14.5); WHITE BLOOD COUNT 9.7 X10'3 (4.5-11.0)
[2020-01-19 09:42] LABS: PARTIAL THROMBOPLASTIN TIME 25 SECONDS (22-32)
[2020-01-19 09:46] LABS: ALANINE AMINOTRANSFERASE 171 U/L (12-78); ALBUMIN 3.2 G/DL (3.4-5.0); ALKALINE PHOSPHATASE 468 IU/L (46-116); ANION GAP 16 (8-16); ASPARTATE AMINO TRANSFERASE 230 U/L (10-37); BILIRUBIN,TOTAL 0.9 MG/DL (0.1-1.0); BLOOD UREA NITROGEN 6 MG/DL (7-18); BUN/CREATININE RATIO 6.8 (5.4-32.0); CALCIUM 7.9 MG/DL (8.5-10.1); CHLORIDE 100 MMOL/L (99-107); CREATININE 0.88 MG/DL (0.60-1.10); ETHANOL 0.176 GM/DL (0.0-0.010); GLUCOSE 171 MG/DL (70-104); LIPASE 349 U/L (73-393); MAGNESIUM 1.6 MG/DL (1.5-2.4); SODIUM 140 MMOL/L (135-145); TOTAL CARBON DIOXIDE 23.8 MMOL/L (24-32); TOTAL PROTEIN 6.4 G/DL (6.4-8.2); eGFR > 90 ML/MIN
[2020-01-19 09:49] LABS: POTASSIUM 2.6 MMOL/L (3.5-5.1)
[2020-01-19] MEDS ORDERED: famotidine/PF 10 mg/ml inj IV ONE (10:55)
[2020-01-19] MEDS ORDERED: normal saline 1000ML IV soln IVB ONE (10:55)
[2020-01-19] MEDS ORDERED: magnesium oxide 400mg tablet PO ONE (10:55)
[2020-01-19] MEDS ORDERED: potassium 10mEq/100ml NS w/LIDOcaine (10mg/bag) IV ONE (10:55)
[2020-01-19] MEDS ORDERED: ondansetron/PF 4mg/2ml inj IV ONE (10:55)
[2020-01-19] MEDS ORDERED: magnesium 2GM in 50ml NS 50 ML IV ONE (10:55)
[2020-01-19] MEDS ORDERED: potassium Cl 20 mEq SR tablet PO ONE (10:55)
[2020-01-19] MEDS ORDERED: potassium Cl 10 mEq/100mL bag IV ONE ×2 (11:05→11:55)
[2020-01-19 11:26] LABS: CLARITY,URINE CLEAR (Clear); COLOR,URINE YELLOW (Yellow); GLUCOSE, URINE NEGATIVE (Neg); KETONES,URINE NEGATIVE (Neg); LEUKOCYTE ESTERASE ,URINE NEGATIVE (Neg); NITRITES, URINE NEGATIVE (Neg); OCCULT BLOOD,URINE NEGATIVE (Neg); PROTEIN,URINE NEGATIVE (Neg); UROBILINOGEN,URINE 0.2 E.U/dL (0.2-1.0)
[2020-01-19 11:28] LABS: UA COLLECTION TYPE URINAL
[2020-01-19] MEDS ORDERED: pantoprazole 40 MG vial IV ONE (11:55)
[2020-01-19] MEDS ORDERED: potassium Cl 20 mEq SR tablet PO PRN ×2 (12:15)
[2020-01-19] MEDS ORDERED: acetaminophen 325mg tablet PO PRN ×2 (12:15)
[2020-01-19] MEDS ORDERED: HYDROcodone/acetaminophen 5mg/325mg tablet PO PRN (12:15)
[2020-01-19] MEDS ORDERED: magnesium Cl slow-release 64mg tablet PO PRN (12:15)
[2020-01-19] MEDS ORDERED: morphine 2 MG/ML inj. syringe IV PRN (12:15)
[2020-01-19] MEDS ORDERED: dextrose 50%-water 50ml dispensing syringe IV PRN (12:15)
[2020-01-19] MEDS ORDERED: magnesium 2GM in 50ml NS 50 ML IV PRN (12:15)
[2020-01-19] MEDS ORDERED: magnesium 4gm in 100ml NS 100 ML IV PRN (12:15)
[2020-01-19] MEDS ORDERED: ondansetron/PF 4mg/2ml inj IV PRN (12:15)
[2020-01-19] MEDS ORDERED: LORazepam 1 MG tablet PO PRN (12:15)
[2020-01-19] MEDS ORDERED: NO HOME MEDS (12:39)
--- NOTE | 2020-01-19 14:20 | NUR ---
ATTEMPTED TO CALL REPORT REPORT RN AT LUNCH
[2020-01-19] MEDS: potassium CL 10mEq/100ml bag 100 ML IV PRN ×5 (14:31→22:33)
--- NOTE | 2020-01-19 15:00 | NUR ---
Patient in room ORTHO 4010. I have received report from Amber and had the opportunity to ask questions and assume patient care.
[2020-01-19 15:10] VITALS: BP 136/88
--- NOTE | 2020-01-19 15:39 | NUR ---
Domingo [id number] Re: Mario Antonio Pt will need a sitter as he is coming down from his 0.176 ethyl level.
--- NOTE | 2020-01-19 16:32 | NUR ---
Domingo [id number] Re: Mario Antonio Pt complain of chest pain. Did a EKG, showed sinus rhythm with prolonged QT.
[2020-01-19] MEDS: LORazepam 2 mg/ml vial IV PRN ×2 (16:48→20:44)
[2020-01-19] MEDS: pantoprazole 40 MG vial IV SCH ×2 (16:49→19:11)
[2020-01-19 17:00] VITALS: BP 128/86
--- NOTE | 2020-01-19 18:30 | NUR ---
Patient in room ORTHO 4010. I have received report from Domingo DREW and had the opportunity to ask questions and assume patient care.
--- NOTE | 2020-01-19 18:31 | NUR ---
Problems reprioritized. Patient report given, questions answered & plan of care reviewed with Yuliana.
[2020-01-19] MEDS: heparin, porcine 5000 units/ml vial SQ SCH (19:11)
[2020-01-19] MEDS: K and/or MAG REPLACEMENT MC SCH (20:00)
[2020-01-19] MEDS ORDERED: metoclopramide 5 mg/ml inj IV PRN (20:00)
[2020-01-19] MEDS ORDERED: pantoprazole 40 MG vial IV SCH (20:00)
[2020-01-19] MEDS ORDERED: diatr meglu/diatrizoate 30ml oral sol.-(3 dose) bottle PO SCH (21:00)
[2020-01-19 22:00] VITALS: BP 147/94
[2020-01-20] MEDS: potassium CL 10mEq/100ml bag 100 ML IV PRN ×4 (00:21→04:31)
[2020-01-20] MEDS: LORazepam 2 mg/ml vial IV PRN ×3 (03:20→14:05)
[2020-01-20 06:00] VITALS: BP 174/110
--- NOTE | 2020-01-20 06:14 | NUR ---
Problems reprioritized. Patient report given, questions answered & plan of care reviewed with Toby RN.
--- NOTE | 2020-01-20 06:56 | NUR ---
Problems reprioritized. Patient report given, questions answered & plan of care reviewed with Ingris DREW.
[2020-01-20] MEDS ORDERED: pantoprazole 40 MG vial IV SCH (08:00)
[2020-01-20] MEDS: K and/or MAG REPLACEMENT MC SCH (08:00)
[2020-01-20] MEDS: pantoprazole 40 MG vial IV SCH (08:18)
[2020-01-20] MEDS: heparin, porcine 5000 units/ml vial SQ SCH (08:25)
[2020-01-20 08:30] LABS: BASOPHILS % (AUTO) 0.6 % (0-1); EOSINOPHILS # (AUTO) 0.2 X10'3 (0-0.9); EOSINOPHILS % (AUTO) 3.2 % (0-6); HEMATOCRIT 37.2 % (42.0-52.0); HEMOGLOBIN 12.9 g/dl (14.0-17.9); LYMPHOCYTES % (AUTO) 20.7 % (21-51); MEAN CORPUSCULAR HEMOGLOBIN 32.1 PG (27.0-31.0); MEAN CORPUSCULAR HGB CONC 34.6 g/dL (33.0-36.5); MEAN CORPUSCULAR VOLUME 92.8 FL (78-98); MEAN PLATELET VOLUME 7.3 FL (7.4-10.4); MONOCYTES # (AUTO) 0.4 X10'3 (0-0.9); MONOCYTES % (AUTO) 7.8 % (2-12); NEUTROPHILS # (AUTO) 3.2 X10'3 (1.8-7.7); NEUTROPHILS % (AUTO) 67.7 % (42-75); PLATELET COUNT 270 X10'3 (140-440); RED BLOOD COUNT 4.01 X10'6 (4.70-6.10); RED CELL DISTRIBUTION WIDTH 13.4 % (11.5-14.5); WHITE BLOOD COUNT 4.8 X10'3 (4.5-11.0)
[2020-01-20 08:44] LABS: ALANINE AMINOTRANSFERASE 109 U/L (12-78); ALBUMIN 2.8 G/DL (3.4-5.0); ALKALINE PHOSPHATASE 383 IU/L (46-116); ANION GAP 8 (8-16); ASPARTATE AMINO TRANSFERASE 66 U/L (10-37); BILIRUBIN,TOTAL 1.2 MG/DL (0.1-1.0); BLOOD UREA NITROGEN 7 MG/DL (7-18); CHLORIDE 104 MMOL/L (99-107); GLUCOSE 108 MG/DL (70-104); MAGNESIUM 1.6 MG/DL (1.5-2.4); POTASSIUM 3.5 MMOL/L (3.5-5.1); SODIUM 140 MMOL/L (135-145); TOTAL CARBON DIOXIDE 28.4 MMOL/L (24-32); TOTAL PROTEIN 5.7 G/DL (6.4-8.2); eGFR 79 ML/MIN
[2020-01-20 10:00] VITALS: BP 160/96
--- NOTE | 2020-01-20 16:01 | NUR ---
Patient requested discharge, was notified. stated it would be an AMA if patient wanted to leave. Patient was educated on these action and decided to leave AMA. Patients IV taken out at this time. Canula whole and and intact at md. Patient signed AMA form and was directed to to the front entrance by the PCT.
[2020-01-23] MEDS ORDERED: LORazepam 1 MG tablet PO PRN (12:15)
[2020-01-23] MEDS ORDERED: LORazepam 2 mg/ml vial IV PRN (12:15)
== END 2020-01-20 15:50 | disposition left against medical advice (07) | DRG 241 ==
LOC: ER 08:42 → ED HOLD 12:11 → ORTHO 4S 15:22
PROVIDERS: ADMIT Internal Medicine; ATTEND Internal Medicine
DX: K29.20 Alcoholic gastritis without bleeding (principal); E87.6 Hypokalemia; F10.920 Alcohol use, unspecified with intoxication, uncomplicated; F31.9 Bipolar disorder, unspecified; K86.0 Alcohol-induced chronic pancreatitis; R74.0 Nonspecific elevation of levels of transaminase and lactic acid dehydrogenase [LDH]; F29 Unspecified psychosis not due to a substance or known physiological condition; F41.9 Anxiety disorder, unspecified; R94.31 Abnormal electrocardiogram [ECG] [EKG]; Z88.8 Allergy status to other drugs, medicaments and biological substances
CPT/HCPCS: 36415; 74176; 80053; 80320; 81003; 82948; 83690; 83735; 84132; 85025; 85610; 85730; 87081; 93005; 97116; 97161; 99285; C9113; G0378; J1644; J2060; J2405; J2765; J3475; J3480; J3490; J7030

== ENCOUNTER 2020-01-21 12:24 | Emergency (ER) | payer MEDICAID ==
[~2020-01-21 12:24] MED LIST changes: -HYDR-4383 PO; +NO HOME MEDS; -ONDA4TAB6 PO; -POTA-82 PO
[2020-01-22] MEDS ORDERED: SUCR1TAB34 PO (15:11)
== END 2020-01-21 14:00 | disposition left against medical advice (07) ==
LOC: ER 12:25
DX: F10.10 Alcohol abuse, uncomplicated (principal); Z53.21 Procedure and treatment not carried out due to patient leaving prior to being seen by health care provider; Y90.9 Presence of alcohol in blood, level not specified

== ENCOUNTER 2020-01-22 12:22 | Emergency (ER) | payer MEDICAID ==
[~2020-01-22] VITALS: Ht 175.3 cm; Wt 75.0 kg
[2020-01-22] MEDS ORDERED: sucralfate 1gm/10ml UD suspension PO STA (14:03)
[2020-01-22] MEDS ORDERED: normal saline 1000ML IV soln IVB ONE (14:05)
[2020-01-22] MEDS ORDERED: mag hydrox/Alum hydrox/simeth 30ml oral suspension PO ONE (14:05)
[2020-01-22] MEDS ORDERED: ondansetron/PF 4mg/2ml inj IV ONE (14:05)
[2020-01-22] MEDS ORDERED: LIDOcaine Viscous 15ml cup MM ONE (14:05)
[2020-01-22 14:38] LABS: BASOPHILS % (AUTO) 0.3 % (0-1); EOSINOPHILS % (AUTO) 0.1 % (0-6); LYMPHOCYTES # (AUTO) 0.9 X10'3 (1.1-4.8); LYMPHOCYTES % (AUTO) 13.5 % (21-51); MEAN CORPUSCULAR HEMOGLOBIN 31.9 PG (27.0-31.0); MEAN CORPUSCULAR HGB CONC 34.4 g/dL (33.0-36.5); MEAN CORPUSCULAR VOLUME 92.8 FL (78-98); MEAN PLATELET VOLUME 7.1 FL (7.4-10.4); MONOCYTES # (AUTO) 0.4 X10'3 (0-0.9); MONOCYTES % (AUTO) 6.4 % (2-12); NEUTROPHILS # (AUTO) 5.5 X10'3 (1.8-7.7); NEUTROPHILS % (AUTO) 79.7 % (42-75); PLATELET COUNT 408 X10'3 (140-440); RED BLOOD COUNT 4.09 X10'6 (4.70-6.10); RED CELL DISTRIBUTION WIDTH 13.8 % (11.5-14.5); WHITE BLOOD COUNT 6.9 X10'3 (4.5-11.0)
[2020-01-22 14:53] LABS: ALANINE AMINOTRANSFERASE 75 U/L (12-78); ALBUMIN 3.2 G/DL (3.4-5.0); ALKALINE PHOSPHATASE 415 IU/L (46-116); ANION GAP 13 (8-16); ASPARTATE AMINO TRANSFERASE 66 U/L (10-37); BILIRUBIN,TOTAL 0.4 MG/DL (0.1-1.0); BLOOD UREA NITROGEN 4 MG/DL (7-18); BUN/CREATININE RATIO 4.4 (5.4-32.0); CALCIUM 8.4 MG/DL (8.5-10.1); CHLORIDE 100 MMOL/L (99-107); GLUCOSE 148 MG/DL (70-104); LIPASE 310 U/L (73-393); SODIUM 139 MMOL/L (135-145); TOTAL CARBON DIOXIDE 25.9 MMOL/L (24-32); TOTAL PROTEIN 6.4 G/DL (6.4-8.2); eGFR 90 ML/MIN
[2020-01-22 14:59] LABS: POTASSIUM 2.7 MMOL/L (3.5-5.1)
[2020-01-22 15:01] LABS: CLARITY,URINE CLEAR (Clear); COLOR,URINE STRAW (Yellow); GLUCOSE, URINE NEGATIVE (Neg); KETONES,URINE NEGATIVE (Neg); LEUKOCYTE ESTERASE ,URINE NEGATIVE (Neg); NITRITES, URINE NEGATIVE (Neg); OCCULT BLOOD,URINE NEGATIVE (Neg); PH,URINE 6.5 (4.8-8.0); PROTEIN,URINE NEGATIVE (Neg); UA COLLECTION TYPE VOIDED; UROBILINOGEN,URINE 0.2 E.U/dL (0.2-1.0)
[2020-01-22] MEDS ORDERED: POTASSIUM BICARB 20meq eff tab 20 MEQ TABLET.EFF PO ONE (15:05)
[2020-01-22] MEDS ORDERED: SUCR1TAB34 PO (15:11)
[2020-01-22 15:58] VITALS: BP 114/70
== END 2020-01-22 16:03 | disposition home or self-care (01) ==
LOC: ER 12:22
DX: R11.2 Nausea with vomiting, unspecified (principal); R19.7 Diarrhea, unspecified; R10.9 Unspecified abdominal pain; E87.6 Hypokalemia; F41.9 Anxiety disorder, unspecified; F31.9 Bipolar disorder, unspecified; F10.10 Alcohol abuse, uncomplicated; Z88.8 Allergy status to other drugs, medicaments and biological substances; Z79.899 Other long term (current) drug therapy; Y90.9 Presence of alcohol in blood, level not specified
CPT/HCPCS: 36415; 80053; 81003; 83690; 85025; 96361; 96374; 99284; J2405; J7030

== ENCOUNTER 2020-01-24 10:55 | Inpatient (IN) | payer MEDICAID ==
[~2020-01-24] VITALS: Ht 175.3 cm; Wt 75.0 kg
[~2020-01-24 10:55] MED LIST changes: +SUCR1TAB34 PO
[2020-01-24 12:02] LABS: BASOPHILS % (AUTO) 0.5 % (0-1); EOSINOPHILS % (AUTO) 0.2 % (0-6); HEMOGLOBIN 11.8 g/dl (14.0-17.9); LYMPHOCYTES # (AUTO) 0.6 X10'3 (1.1-4.8); LYMPHOCYTES % (AUTO) 14.8 % (21-51); MEAN CORPUSCULAR HEMOGLOBIN 32.3 PG (27.0-31.0); MEAN CORPUSCULAR HGB CONC 34.7 g/dL (33.0-36.5); MEAN CORPUSCULAR VOLUME 92.9 FL (78-98); MEAN PLATELET VOLUME 6.8 FL (7.4-10.4); MONOCYTES # (AUTO) 0.5 X10'3 (0-0.9); MONOCYTES % (AUTO) 14.2 % (2-12); NEUTROPHILS # (AUTO) 2.7 X10'3 (1.8-7.7); NEUTROPHILS % (AUTO) 70.3 % (42-75); PLATELET COUNT 326 X10'3 (140-440); RED BLOOD COUNT 3.66 X10'6 (4.70-6.10); RED CELL DISTRIBUTION WIDTH 13.6 % (11.5-14.5); WHITE BLOOD COUNT 3.8 X10'3 (4.5-11.0)
[2020-01-24 12:15] LABS: ALANINE AMINOTRANSFERASE 80 U/L (12-78); ALBUMIN 2.6 G/DL (3.4-5.0); ALBUMIN/GLOBULIN RATIO 0.9 (1.1-1.5); ALKALINE PHOSPHATASE 407 IU/L (46-116); ANION GAP 12 (8-16); ASPARTATE AMINO TRANSFERASE 114 U/L (10-37); BILIRUBIN,TOTAL 0.4 MG/DL (0.1-1.0); BLOOD UREA NITROGEN 4 MG/DL (7-18); BUN/CREATININE RATIO 5.3 (5.4-32.0); CALCIUM 7.7 MG/DL (8.5-10.1); CHLORIDE 101 MMOL/L (99-107); CREATININE 0.76 MG/DL (0.60-1.10); ETHANOL 0.292 GM/DL (0.0-0.010); GLUCOSE 160 MG/DL (70-104); LIPASE 240 U/L (73-393); SODIUM 141 MMOL/L (135-145); TOTAL CARBON DIOXIDE 27.6 MMOL/L (24-32); TOTAL PROTEIN 5.4 G/DL (6.4-8.2); eGFR > 90 ML/MIN
[2020-01-24 12:18] LABS: POTASSIUM 2.4 MMOL/L (3.5-5.1)
[2020-01-24] MEDS ORDERED: pantoprazole 40 MG vial IV ONE (12:30)
[2020-01-24] MEDS ORDERED: metoclopramide 5 mg/ml inj IV ONE (12:30)
[2020-01-24] MEDS ORDERED: normal saline 1000ML IV soln IVB ONE (12:30)
[2020-01-24] MEDS ORDERED: potassium Cl 10 mEq/100mL bag IV ONE (12:30)
--- NOTE | 2020-01-24 13:07 | NUR ---
MEDS GIVEN AND VS UPDATED
[2020-01-24] MEDS ORDERED: ondansetron/PF 4mg/2ml inj IV PRN ×2 (13:25→13:30)
[2020-01-24] MEDS ORDERED: mag hydrox/Alum hydrox/simeth 30ml oral suspension PO PRN (13:25)
[2020-01-24] MEDS ORDERED: magnesium hydroxide 30ml (MOM) UD suspension PO PRN (13:25)
[2020-01-24] MEDS ORDERED: acetaminophen 325mg tablet PO PRN ×3 (13:25→13:30)
[2020-01-24] MEDS ORDERED: magnesium 4gm in 100ml NS 100 ML IV PRN (13:30)
[2020-01-24] MEDS ORDERED: potassium CL 10mEq/100ml bag 100 ML IV PRN ×2 (13:30)
[2020-01-24] MEDS ORDERED: potassium Cl 20 mEq SR tablet PO PRN (13:30)
[2020-01-24] MEDS ORDERED: magnesium Cl slow-release 64mg tablet PO PRN (13:30)
[2020-01-24] MEDS ORDERED: docusate sod 100mg capsule PO PRN (13:30)
[2020-01-24] MEDS ORDERED: magnesium 2GM in 50ml NS 50 ML IV PRN (13:30)
[2020-01-24] MEDS ORDERED: dextrose 50%-water 50ml dispensing syringe IV PRN (13:30)
[2020-01-24] MEDS: LORazepam 2 mg/ml vial IV PRN ×2 (13:42→22:38)
[2020-01-24 14:08] LABS: CLARITY,URINE CLEAR (Clear); COLOR,URINE STRAW (Yellow); GLUCOSE, URINE NEGATIVE (Neg); KETONES,URINE NEGATIVE (Neg); LEUKOCYTE ESTERASE ,URINE NEGATIVE (Neg); NITRITES, URINE NEGATIVE (Neg); OCCULT BLOOD,URINE NEGATIVE (Neg); PROTEIN,URINE NEGATIVE (Neg); UROBILINOGEN,URINE 0.2 E.U/dL (0.2-1.0)
[2020-01-24] MEDS ORDERED: GABA300C PO (14:08)
[2020-01-24] MEDS ORDERED: FLUO40CA10 PO (14:08)
[2020-01-24] MEDS ORDERED: OLAN5TAB26 PO (14:08)
[2020-01-24] MEDS ORDERED: NALT50TA PO (14:08)
[2020-01-24] MEDS ORDERED: PANT20TA2 PO (14:08)
[2020-01-24] MEDS ORDERED: LORA-269 PO (14:08)
[2020-01-24] MEDS ORDERED: PROP10TA10 PO (14:08)
[2020-01-24 14:09] LABS: UA COLLECTION TYPE CLN CATCH MIDSTREAM
[2020-01-24] MEDS: pantoprazole 40 MG vial IV SCH (14:10)
[2020-01-24 14:23] LABS: URINE AMPHETAMINE SCREEN NEGATIVE (Neg); URINE BARBITUATE SCREEN POSITIVE (Neg); URINE BENZODIAZEPINES SCREEN NEGATIVE (Neg); URINE CANNABINOID SCREEN NEGATIVE (Neg); URINE COCAINE SCREEN NEGATIVE (Neg); URINE METHADONE SCREEN NEGATIVE (Neg); URINE OPIATE SCREEN NEGATIVE (Neg); URINE PHENCYCLIDINE SCREEN NEGATIVE (Neg)
[2020-01-24] MEDS: potassium Cl 20mEq in NS 1,000 ML IV SCH (16:17)
[2020-01-24 16:55] VITALS: BP 124/54
[2020-01-24] MEDS: LORazepam 1 MG tablet PO PRN (17:28)
--- NOTE | 2020-01-24 18:16 | NUR ---
PAGER ID: [phone] MESSAGE: [phone] Marisela, Mario Please call, family has found him after four days looking for him. I will put the contacts in a note, and [facility] Dr. Marinelli and [employer] Varun. [phone]
--- NOTE | 2020-01-24 18:40 | NUR ---
PAGER ID: [phone] MESSAGE: [phone] Marisela, Mario Can we get a diet. Teresa [phone]
--- NOTE | 2020-01-24 18:45 | NUR ---
Patient is seen at Dr. Marinelli office at [facility] dialysis social worker Varun [phone] [facility] Dr. Goodman
--- NOTE | 2020-01-24 18:45 | NUR ---
Spoke with mother, Sujatha and brother Boy. Boy takes care of his medical situation he will be faxing over a medication list and has provided all providers patient sees.
--- NOTE | 2020-01-24 18:49 | NUR ---
2.8 POTASSIUM CRITICAL LEVEL AND I NOTIFIED KATIUSKA DREW OF LAB SINCE IT IS HER PATIENT.
--- NOTE | 2020-01-24 18:51 | NUR ---
notified via spok of critical potassium PAGER ID: [phone] MESSAGE: critical K+ on 4000B at 2.8 - will follow protocol. this is shade at [phone]
[2020-01-24] MEDS: K and/or MAG REPLACEMENT MC SCH (19:55)
[2020-01-24] MEDS: heparin, porcine 5000 units/ml vial SQ SCH (19:59)
[2020-01-24] MEDS: potassium Cl 20 mEq SR tablet PO PRN (19:59)
[2020-01-24 20:00] VITALS: BP 121/81
[2020-01-24] MEDS: propranolol 10mg tablet PO SCH (20:02)
[2020-01-24] MEDS ORDERED: gabapentin 300mg capsule PO SCH (21:00)
[2020-01-24] MEDS ORDERED: temazepam 15mg capsule PO PRN (21:00)
[2020-01-24 22:00] VITALS: BP 121/81
[2020-01-25] MEDS: potassium Cl 20 mEq SR tablet PO PRN ×2 (00:02→04:29)
[2020-01-25] MEDS: LORazepam 1 MG tablet PO PRN ×3 (02:46→15:01)
[2020-01-25] MEDS: potassium Cl 20mEq in NS 1,000 ML IV SCH ×2 (02:55→11:38)
--- NOTE | 2020-01-25 06:08 | NUR ---
Problems reprioritized. Patient report given, questions answered & plan of care reviewed with VIKI Tamez.
[2020-01-25 06:10] VITALS: BP 153/98
--- NOTE | 2020-01-25 06:27 | NUR ---
Patient in room ORTHO 4009. I have received report from Lalitha Greene RN and had the opportunity to ask questions and assume patient care.
--- NOTE | 2020-01-25 06:32 | NUR ---
Patient in room ORTHO 4009. I have received report from Lalitha Greene RN and had the opportunity to ask questions and assume patient care.
[2020-01-25 06:41] LABS: BASOPHILS % (AUTO) 0.5 % (0-1); EOSINOPHILS % (AUTO) 0.3 % (0-6); HEMATOCRIT 34.4 % (42.0-52.0); HEMOGLOBIN 11.9 g/dl (14.0-17.9); LYMPHOCYTES # (AUTO) 0.7 X10'3 (1.1-4.8); LYMPHOCYTES % (AUTO) 11.5 % (21-51); MEAN CORPUSCULAR HEMOGLOBIN 32.4 PG (27.0-31.0); MEAN CORPUSCULAR HGB CONC 34.7 g/dL (33.0-36.5); MEAN CORPUSCULAR VOLUME 93.4 FL (78-98); MONOCYTES # (AUTO) 0.8 X10'3 (0-0.9); MONOCYTES % (AUTO) 13.3 % (2-12); NEUTROPHILS # (AUTO) 4.4 X10'3 (1.8-7.7); NEUTROPHILS % (AUTO) 74.4 % (42-75); PLATELET COUNT 324 X10'3 (140-440); RED BLOOD COUNT 3.68 X10'6 (4.70-6.10); RED CELL DISTRIBUTION WIDTH 13.8 % (11.5-14.5); WHITE BLOOD COUNT 5.9 X10'3 (4.5-11.0)
[2020-01-25 06:55] LABS: ALANINE AMINOTRANSFERASE 64 U/L (12-78); ALBUMIN 2.5 G/DL (3.4-5.0); ALKALINE PHOSPHATASE 363 IU/L (46-116); ANION GAP 9 (8-16); ASPARTATE AMINO TRANSFERASE 71 U/L (10-37); BILIRUBIN,TOTAL 0.5 MG/DL (0.1-1.0); BLOOD UREA NITROGEN 5 MG/DL (7-18); BUN/CREATININE RATIO 5.8 (5.4-32.0); CALCIUM 7.3 MG/DL (8.5-10.1); CHLORIDE 105 MMOL/L (99-107); CREATININE 0.86 MG/DL (0.60-1.10); GLUCOSE 96 MG/DL (70-104); MAGNESIUM 1.2 MG/DL (1.5-2.4); POTASSIUM 4.1 MMOL/L (3.5-5.1); SODIUM 142 MMOL/L (135-145); TOTAL CARBON DIOXIDE 28.4 MMOL/L (24-32); TOTAL PROTEIN 5.1 G/DL (6.4-8.2); eGFR > 90 ML/MIN
[2020-01-25] MEDS ORDERED: OLANZAPINE 5 MG TABLET PO SCH (08:00)
[2020-01-25] MEDS ORDERED: FLUoxetine 20mg capsule PO SCH (08:00)
[2020-01-25] MEDS ORDERED: atenolol 50mg tablet PO SCH (08:00)
[2020-01-25] MEDS: K and/or MAG REPLACEMENT MC SCH (08:00)
[2020-01-25] MEDS: propranolol 10mg tablet PO SCH (08:39)
[2020-01-25] MEDS: heparin, porcine 5000 units/ml vial SQ SCH (08:41)
[2020-01-25] MEDS: pantoprazole 40 MG vial IV SCH (08:41)
[2020-01-25 10:00] VITALS: BP 150/108
--- NOTE | 2020-01-25 12:30 | NUR ---
Paged Dr. Anderson about patient medications from [facility], I talked to pharmacy and they told me the list of meds and put them in med rec.
[2020-01-25] MEDS ORDERED: PROP20TA6 PO (12:40)
[2020-01-25] MEDS ORDERED: MIRT45TA79 PO (12:41)
[2020-01-25] MEDS ORDERED: BENZ1TAB7 PO (12:42)
[2020-01-25] MEDS ORDERED: OLAN20TA3 PO ×2 (12:43→12:46)
[2020-01-25] MEDS ORDERED: OLAN10TA3 PO ×2 (12:43→12:45)
--- NOTE | 2020-01-25 16:08 | NUR ---
Patient discharged at this time, he was offered an uber, but since he needed to stop at his bank, we were unable to provide an uber per hospital policy. Patient headed on foot to his bank. Patient also taught discharge instructions and medications changes per Dr. Anderson
[2020-01-26] MEDS ORDERED: pantoprazole 40mg Tablet.DR PO SCH (07:30)
== END 2020-01-25 16:10 | disposition home or self-care (01) | DRG 241 ==
LOC: ER 10:56 → ED HOLD 13:24 → ORTHO 4S 16:49
PROVIDERS: ADMIT Internal Medicine; ATTEND Internal Medicine
DX: K29.20 Alcoholic gastritis without bleeding (principal); E87.6 Hypokalemia; F31.9 Bipolar disorder, unspecified; F41.9 Anxiety disorder, unspecified
CPT/HCPCS: 36415; 80053; 80305; 80320; 81003; 82948; 83690; 83735; 84132; 85025; 85610; 87081; C9113; G0378; J1644; J2060; J2405; J2765; J3480; J7030

== ENCOUNTER 2020-01-26 14:49 | Emergency (ER) | payer MEDICAID ==
[~2020-01-26 14:49] MED LIST changes: +BENZ1TAB7 PO; +FLUO40CA10 PO; +GABA300C PO; +MIRT45TA79 PO; +NALT50TA PO; -NO HOME MEDS; +OLAN10TA3 PO; +PANT20TA2 PO; +PROP20TA6 PO; -SUCR1TAB34 PO
== END 2020-01-26 15:59 | disposition left against medical advice (07) ==
LOC: ER 14:49
DX: R06.00 Dyspnea, unspecified (principal); Z53.21 Procedure and treatment not carried out due to patient leaving prior to being seen by health care provider

== ENCOUNTER 2020-01-31 03:59 | Emergency (ER) | payer MEDICAID ==
[~2020-01-31] VITALS: Ht 175.3 cm; Wt 75.0 kg
[2020-01-31] MEDS ORDERED: normal saline 1000ml 1,000 ML IV ONE (04:40)
[2020-01-31] MEDS ORDERED: ondansetron/PF 4mg/2ml inj IV ONE (04:40)
[2020-01-31] MEDS ORDERED: pantoprazole 40 MG vial IV ONE (04:40)
[2020-01-31] MEDS ORDERED: thiamine 100mg/ml 2ml inj. IV ONE (04:40)
[2020-01-31] MEDS ORDERED: famotidine/PF 10 mg/ml inj IV ONE (04:40)
[2020-01-31] MEDS ORDERED: metoclopramide 5 mg/ml inj IV ONE (04:40)
[2020-01-31] MEDS ORDERED: magnesium 2GM in 50ml NS 50 ML IV ONE (04:45)
[2020-01-31 05:40] LABS: ALANINE AMINOTRANSFERASE 116 U/L (12-78); ALBUMIN 2.9 G/DL (3.4-5.0); ALKALINE PHOSPHATASE 741 IU/L (46-116); ANION GAP 12 (8-16); ASPARTATE AMINO TRANSFERASE 229 U/L (10-37); BILIRUBIN,TOTAL 0.6 MG/DL (0.1-1.0); BLOOD UREA NITROGEN 2 MG/DL (7-18); BUN/CREATININE RATIO 2.6 (5.4-32.0); CALCIUM 7.9 MG/DL (8.5-10.1); CHLORIDE 99 MMOL/L (99-107); CREATININE 0.78 MG/DL (0.60-1.10); GLUCOSE 153 MG/DL (70-104); LIPASE 408 U/L (73-393); MAGNESIUM 1.4 MG/DL (1.5-2.4); SODIUM 141 MMOL/L (135-145); TOTAL CARBON DIOXIDE 30.3 MMOL/L (24-32); TOTAL PROTEIN 5.8 G/DL (6.4-8.2); eGFR > 90 ML/MIN
[2020-01-31 05:44] LABS: BASOPHILS % (AUTO) 0.5 % (0-1); EOSINOPHILS # (AUTO) 0.1 X10'3 (0-0.9); EOSINOPHILS % (AUTO) 1.2 % (0-6); HEMATOCRIT 36.7 % (42.0-52.0); HEMOGLOBIN 12.8 g/dl (14.0-17.9); LYMPHOCYTES # (AUTO) 0.7 X10'3 (1.1-4.8); LYMPHOCYTES % (AUTO) 16.6 % (21-51); MEAN CORPUSCULAR HEMOGLOBIN 33.2 PG (27.0-31.0); MEAN CORPUSCULAR HGB CONC 34.8 g/dL (33.0-36.5); MEAN CORPUSCULAR VOLUME 95.4 FL (78-98); MEAN PLATELET VOLUME 6.8 FL (7.4-10.4); MONOCYTES # (AUTO) 0.6 X10'3 (0-0.9); MONOCYTES % (AUTO) 12.9 % (2-12); NEUTROPHILS % (AUTO) 68.8 % (42-75); PLATELET COUNT 271 X10'3 (140-440); RED BLOOD COUNT 3.85 X10'6 (4.70-6.10); RED CELL DISTRIBUTION WIDTH 14.1 % (11.5-14.5); WHITE BLOOD COUNT 4.3 X10'3 (4.5-11.0)
[2020-01-31 05:46] LABS: POTASSIUM 2.5 MMOL/L (3.5-5.1)
[2020-01-31] MEDS ORDERED: potassium Cl 20 mEq SR tablet PO STA ×2 (06:01→06:33)
[2020-01-31] MEDS ORDERED: POTA20TA19 PO (06:05)
[2020-01-31] MEDS ORDERED: PANT-47 PO (06:07)
[2020-01-31] MEDS: potassium Cl 10 mEq/100mL bag IV ONE ×2 (06:10→06:59)
[2020-01-31 06:56] VITALS: BP 143/94
== END 2020-01-31 06:59 | disposition home or self-care (01) ==
LOC: ER 04:00
DX: E87.6 Hypokalemia (principal); K29.20 Alcoholic gastritis without bleeding; F10.10 Alcohol abuse, uncomplicated; F41.9 Anxiety disorder, unspecified; F31.9 Bipolar disorder, unspecified; Z88.8 Allergy status to other drugs, medicaments and biological substances; Z79.899 Other long term (current) drug therapy; Y90.0 Blood alcohol level of less than 20 mg/100 ml
CPT/HCPCS: 36415; 80053; 80320; 83690; 83735; 85025; 96365; 96375; 99284; C9113; J2405; J2765; J3411; J3475; J3490; J7030; J3480

== ENCOUNTER 2020-01-31 10:42 | Emergency (ER) | payer MEDICAID ==
[~2020-01-31] VITALS: Ht 175.3 cm; Wt 75.0 kg
[~2020-01-31 10:42] MED LIST changes: +PANT-47 PO; +POTA20TA19 PO
[2020-01-31 10:48] VITALS: BP 161/108
== END 2020-01-31 10:57 | disposition home or self-care (01) ==
LOC: ER 10:42
DX: F10.10 Alcohol abuse, uncomplicated (principal); R11.2 Nausea with vomiting, unspecified; F41.9 Anxiety disorder, unspecified; F31.9 Bipolar disorder, unspecified; Z88.8 Allergy status to other drugs, medicaments and biological substances; Z79.899 Other long term (current) drug therapy; Y90.9 Presence of alcohol in blood, level not specified
CPT/HCPCS: 99283

== ENCOUNTER 2020-02-03 21:46 | Inpatient (IN) | payer MEDICAID ==
[~2020-02-03] VITALS: Ht 172.7 cm; Wt 75.0 kg
[2020-02-03] MEDS ORDERED: normal saline 1000ML IV soln IVB ONE (22:05)
[2020-02-03] MEDS ORDERED: folic acid 1mg tablet PO ONE (22:05)
[2020-02-03] MEDS ORDERED: thiamine 100mg tablet PO ONE (22:05)
[2020-02-03 22:33] LABS: BASOPHILS % (AUTO) 0.1 % (0-1); EOSINOPHILS % (AUTO) 0 % (0-6); HEMATOCRIT 39.4 % (42.0-52.0); HEMOGLOBIN 13.4 g/dl (14.0-17.9); LYMPHOCYTES # (AUTO) 0.5 X10'3 (1.1-4.8); LYMPHOCYTES % (AUTO) 8.6 % (21-51); MEAN CORPUSCULAR HEMOGLOBIN 32.5 PG (27.0-31.0); MEAN CORPUSCULAR VOLUME 95.7 FL (78-98); MEAN PLATELET VOLUME 6.9 FL (7.4-10.4); MONOCYTES % (AUTO) 16.4 % (2-12); NEUTROPHILS # (AUTO) 4.5 X10'3 (1.8-7.7); NEUTROPHILS % (AUTO) 74.9 % (42-75); PLATELET COUNT 379 X10'3 (140-440); RED BLOOD COUNT 4.12 X10'6 (4.70-6.10); RED CELL DISTRIBUTION WIDTH 18.6 % (11.5-14.5)
[2020-02-03] MEDS ORDERED: ondansetron/PF 4mg/2ml inj IV ONE (22:40)
[2020-02-03] MEDS ORDERED: LORazepam 2 mg/ml vial IV ONE (22:40)
[2020-02-03 22:45] LABS: ALANINE AMINOTRANSFERASE 60 U/L (12-78); ALBUMIN 2.9 G/DL (3.4-5.0); ALKALINE PHOSPHATASE 459 IU/L (46-116); ANION GAP 7 (8-16); ASPARTATE AMINO TRANSFERASE 64 U/L (10-37); BILIRUBIN,TOTAL 0.5 MG/DL (0.1-1.0); BLOOD UREA NITROGEN 3 MG/DL (7-18); BUN/CREATININE RATIO 3.7 (5.4-32.0); CALCIUM 7.5 MG/DL (8.5-10.1); CHLORIDE 98 MMOL/L (99-107); CREATININE 0.81 MG/DL (0.60-1.10); GLUCOSE 163 MG/DL (70-104); MAGNESIUM 1.9 MG/DL (1.5-2.4); SODIUM 139 MMOL/L (135-145); TOTAL CARBON DIOXIDE 34.2 MMOL/L (24-32); TOTAL PROTEIN 5.7 G/DL (6.4-8.2); eGFR > 90 ML/MIN
[2020-02-03 22:48] LABS: ETHANOL 0.323 GM/DL (0.0-0.010); POTASSIUM 2.2 MMOL/L (3.5-5.1)
[2020-02-03] MEDS ORDERED: potassium Cl 20 mEq SR tablet PO ONE (22:50)
[2020-02-03] MEDS ORDERED: potassium 10mEq/100ml NS w/LIDOcaine (10mg/bag) IV SCH (22:50)
[2020-02-03] MEDS ORDERED: potassium CL 10mEq/100ml bag 100 ML IV ONE (23:00)
[2020-02-03] MEDS ORDERED: acetaminophen 325mg tablet PO PRN ×2 (23:40)
[2020-02-03] MEDS ORDERED: docusate sod 100mg capsule PO PRN (23:40)
[2020-02-03] MEDS ORDERED: magnesium 2GM in 50ml NS 50 ML IV PRN (23:40)
[2020-02-03] MEDS ORDERED: dextrose 50%-water 50ml dispensing syringe IV PRN (23:40)
[2020-02-03] MEDS ORDERED: ondansetron/PF 4mg/2ml inj IV PRN (23:40)
[2020-02-03] MEDS ORDERED: potassium CL 10mEq/100ml bag 100 ML IV PRN (23:40)
[2020-02-03] MEDS ORDERED: magnesium 4gm in 100ml NS 100 ML IV PRN (23:40)
[2020-02-03] MEDS ORDERED: magnesium Cl slow-release 64mg tablet PO PRN (23:40)
[2020-02-04] MEDS: potassium CL 10mEq/100ml bag 100 ML IV SCH ×2 (00:08→01:51)
[2020-02-04 00:16] LABS: ANISOCYTOSIS 2+; PLATELET ESTIMATE NORMAL
[2020-02-04 00:45] VITALS: BP 119/81
[2020-02-04] MEDS: morphine 2 MG/ML inj. syringe IV PRN ×3 (01:15→13:23)
[2020-02-04] MEDS: normal saline 1000ml 1,000 ML IV SCH ×3 (01:28→19:47)
[2020-02-04] MEDS: LORazepam 2 mg/ml vial IV PRN ×7 (03:36→21:29)
--- NOTE | 2020-02-04 06:00 | NUR ---
Patient in room ORTHO 4009. I have received report from Kiera DREW and had the opportunity to ask questions and assume patient care.
[2020-02-04 06:28] VITALS: BP 137/91
--- NOTE | 2020-02-04 06:28 | NUR ---
Patient in room ORTHO 4009. I have received report from Kiera DREW and had the opportunity to ask questions and assume patient care.
[2020-02-04 06:36] LABS: BASOPHILS % (AUTO) 0.1 % (0-1); EOSINOPHILS % (AUTO) 0.1 % (0-6); HEMATOCRIT 35.5 % (42.0-52.0); HEMOGLOBIN 12.2 g/dl (14.0-17.9); LYMPHOCYTES # (AUTO) 0.5 X10'3 (1.1-4.8); LYMPHOCYTES % (AUTO) 9.6 % (21-51); MEAN CORPUSCULAR HEMOGLOBIN 33.1 PG (27.0-31.0); MEAN CORPUSCULAR HGB CONC 34.4 g/dL (33.0-36.5); MEAN CORPUSCULAR VOLUME 96.2 FL (78-98); MEAN PLATELET VOLUME 6.8 FL (7.4-10.4); MONOCYTES # (AUTO) 0.9 X10'3 (0-0.9); MONOCYTES % (AUTO) 16.8 % (2-12); NEUTROPHILS # (AUTO) 4.2 X10'3 (1.8-7.7); NEUTROPHILS % (AUTO) 73.4 % (42-75); PLATELET COUNT 284 X10'3 (140-440); RED BLOOD COUNT 3.69 X10'6 (4.70-6.10); RED CELL DISTRIBUTION WIDTH 21.1 % (11.5-14.5); WHITE BLOOD COUNT 5.7 X10'3 (4.5-11.0)
[2020-02-04 06:53] LABS: ALANINE AMINOTRANSFERASE 46 U/L (12-78); ALBUMIN 2.5 G/DL (3.4-5.0); ALKALINE PHOSPHATASE 379 IU/L (46-116); ANION GAP 5 (8-16); ASPARTATE AMINO TRANSFERASE 53 U/L (10-37); BILIRUBIN,TOTAL 0.6 MG/DL (0.1-1.0); BLOOD UREA NITROGEN 3 MG/DL (7-18); BUN/CREATININE RATIO 4.4 (5.4-32.0); CALCIUM 6.9 MG/DL (8.5-10.1); CHLORIDE 101 MMOL/L (99-107); CREATININE 0.68 MG/DL (0.60-1.10); GLUCOSE 144 MG/DL (70-104); LIPASE 1342 U/L (73-393); MAGNESIUM 1.6 MG/DL (1.5-2.4); SODIUM 141 MMOL/L (135-145); TOTAL CARBON DIOXIDE 35.1 MMOL/L (24-32); eGFR > 90 ML/MIN
[2020-02-04 07:01] LABS: POTASSIUM 2.6 MMOL/L (3.5-5.1)
[2020-02-04] MEDS: atenolol 50mg tablet PO SCH (07:17)
[2020-02-04] MEDS: potassium Cl 20 mEq SR tablet PO PRN ×3 (07:19→17:55)
[2020-02-04] MEDS: pantoprazole 40 MG vial IV SCH (07:19)
[2020-02-04] MEDS: heparin, porcine 5000 units/ml vial SQ SCH ×2 (07:20→19:41)
[2020-02-04 07:37] LABS: NUCLEATED RED BLOOD CELLS 1 /100WBC (0-0); TOTAL CELLS COUNTED 100
[2020-02-04 07:38] LABS: ANISOCYTOSIS 3+; PLATELET ESTIMATE NORMAL
[2020-02-04] MEDS: K and/or MAG REPLACEMENT MC SCH ×2 (08:00→19:41)
[2020-02-04] MEDS: LORazepam 1 MG tablet PO PRN (08:01)
[2020-02-04] MEDS ORDERED: haloperidol lactate 5mg/ml inj IM PRN (09:55)
[2020-02-04] MEDS ORDERED: thiamine inj. 100 MG in normal saline 100ml IV soln 100 ML IV ONE (09:55)
[2020-02-04] MEDS ORDERED: mag hydrox/Alum hydrox/simeth 30ml oral suspension PO PRN (09:55)
[2020-02-04] MEDS ORDERED: LORazepam 2 mg/ml vial IV PRN (09:55)
[2020-02-04] MEDS ORDERED: metoclopramide 5 mg/ml inj IV PRN (10:05)
[2020-02-04] MEDS ORDERED: folic acid 1mg/0.2ml inj IV ONE (10:05)
[2020-02-04 11:30] VITALS: BP 153/92
[2020-02-04] MEDS ORDERED: ONDA-103 PO (12:45)
[2020-02-04] MEDS: thiamine inj. 100 MG, MVI, adult No.4 with vit. K 10 ML in dextrose 5% water 500ml 500 ML IV SCH ×3 (13:13)
--- NOTE | 2020-02-04 14:40 | NUR ---
To f/u for initial assessment 02/07. ALEIDA d/w RN regarding thiamin, folic, MVI if MD agreeable given etoh w/d DX per EMR. Addendum: 02/04/20 at [address] Amended: Links added.
--- NOTE | 2020-02-04 17:07 | NUR ---
Dr. Mckeon informed about lipase of 1342 and pt continues to complain of abdomen pain with little relief from pain medicine, and also that no abdomen scans have been done. No new orders at this time.
[2020-02-04 18:00] VITALS: BP 133/92
--- NOTE | 2020-02-04 18:05 | NUR ---
Student documentation: I have reviewed all interventions, assessments performed and documented by Grace Student Nurse. Student Medication Administration: For this medication-pass time frame, all medication were reviewed, dispensed, administered and documented per hospital policy by Grace Student Nurse.
--- NOTE | 2020-02-04 18:36 | NUR ---
Problems reprioritized. Patient report given, questions answered & plan of care reviewed with Atiya DREW.
--- NOTE | 2020-02-04 18:36 | NUR ---
Patient in room ORTHO 4009. I have received report from VIKI Adan and had the opportunity to ask questions and assume patient care. Addendum: 02/04/20 at 1838 by Olivia Carter RN Amended: Links added.
[2020-02-04] MEDS: temazepam 15mg capsule PO PRN (21:29)
[2020-02-04] MEDS: potassium CL 10mEq/100ml bag 100 ML IV PRN ×2 (21:49→22:37)
[2020-02-04 22:00] VITALS: BP 122/78
[2020-02-05] MEDS: potassium CL 10mEq/100ml bag 100 ML IV PRN ×6 (00:30→06:23)
[2020-02-05] MEDS: morphine 2 MG/ML inj. syringe IV PRN ×2 (03:01→14:18)
[2020-02-05] MEDS: normal saline 1000ml 1,000 ML IV SCH ×3 (05:08→20:20)
[2020-02-05 06:00] VITALS: BP 137/83
[2020-02-05 06:22] VITALS: BP 137/83
--- NOTE | 2020-02-05 06:24 | NUR ---
Problems reprioritized. Patient report given, questions answered & plan of care reviewed with VIKI Luis.
--- NOTE | 2020-02-05 06:38 | NUR ---
Patient in room ORTHO 4009. I have received report from TWILA DREW and had the opportunity to ask questions and assume patient care.
[2020-02-05 07:27] LABS: BASOPHILS % (AUTO) 0.2 % (0-1); EOSINOPHILS % (AUTO) 0 % (0-6); HEMATOCRIT 31.3 % (42.0-52.0); HEMOGLOBIN 10.9 g/dl (14.0-17.9); LYMPHOCYTES # (AUTO) 0.6 X10'3 (1.1-4.8); LYMPHOCYTES % (AUTO) 9.2 % (21-51); MEAN CORPUSCULAR HGB CONC 34.7 g/dL (33.0-36.5); MEAN CORPUSCULAR VOLUME 97.8 FL (78-98); MEAN PLATELET VOLUME 7.1 FL (7.4-10.4); MONOCYTES # (AUTO) 0.7 X10'3 (0-0.9); MONOCYTES % (AUTO) 10.4 % (2-12); NEUTROPHILS # (AUTO) 5.4 X10'3 (1.8-7.7); NEUTROPHILS % (AUTO) 80.2 % (42-75); PLATELET COUNT 188 X10'3 (140-440); RED CELL DISTRIBUTION WIDTH 20.7 % (11.5-14.5); WHITE BLOOD COUNT 6.7 X10'3 (4.5-11.0)
[2020-02-05 07:44] LABS: ALANINE AMINOTRANSFERASE 34 U/L (12-78); ALBUMIN 2.1 G/DL (3.4-5.0); ALBUMIN/GLOBULIN RATIO 0.9 (1.1-1.5); ALKALINE PHOSPHATASE 279 IU/L (46-116); ANION GAP 4 (8-16); ASPARTATE AMINO TRANSFERASE 37 U/L (10-37); BILIRUBIN,TOTAL 1.3 MG/DL (0.1-1.0); BLOOD UREA NITROGEN 5 MG/DL (7-18); BUN/CREATININE RATIO 9.3 (5.4-32.0); CALCIUM 6.7 MG/DL (8.5-10.1); CHLORIDE 105 MMOL/L (99-107); CREATININE 0.54 MG/DL (0.60-1.10); GLUCOSE 93 MG/DL (70-104); MAGNESIUM 1.3 MG/DL (1.5-2.4); POTASSIUM 3.7 MMOL/L (3.5-5.1); SODIUM 139 MMOL/L (135-145); TOTAL CARBON DIOXIDE 29.9 MMOL/L (24-32); TOTAL PROTEIN 4.4 G/DL (6.4-8.2); eGFR > 90 ML/MIN
[2020-02-05] MEDS: K and/or MAG REPLACEMENT MC SCH ×2 (08:00→20:00)
[2020-02-05] MEDS: pantoprazole 40 MG vial IV SCH (08:21)
[2020-02-05] MEDS: heparin, porcine 5000 units/ml vial SQ SCH ×2 (08:22→20:19)
[2020-02-05] MEDS: LORazepam 2 mg/ml vial IV PRN ×5 (08:22→20:32)
[2020-02-05] MEDS: thiamine inj. 100 MG, MVI, adult No.4 with vit. K 10 ML in dextrose 5% water 500ml 500 ML IV SCH ×3 (08:22)
[2020-02-05] MEDS: atenolol 50mg tablet PO SCH (08:29)
[2020-02-05 11:00] VITALS: BP 128/72
[2020-02-05 11:15] LABS: TOTAL CELLS COUNTED 100
[2020-02-05] MEDS ORDERED: ondansetron 4mg rapidly disintigrating tab PO PRN (11:15)
[2020-02-05 11:17] LABS: PLATELET ESTIMATE NORMAL
[2020-02-05 11:18] LABS: ANISOCYTOSIS 3+; SMUDGE CELLS 2+
[2020-02-05 13:34] LABS: LIPASE 863 U/L (73-393)
[2020-02-05] MEDS: LORazepam 1 MG tablet PO PRN (14:10)
[2020-02-05] MEDS: naltrexone 50mg tablet PO SCH (15:55)
[2020-02-05 18:00] VITALS: BP 136/91
--- NOTE | 2020-02-05 18:00 | NUR ---
Patient in room ORTHO 4021. I have received report from VIKI Luis and had the opportunity to ask questions and assume patient care.
--- NOTE | 2020-02-05 18:46 | NUR ---
Problems reprioritized. Patient report given, questions answered & plan of care reviewed with Renata DREW.
[2020-02-05] MEDS ORDERED: propranolol 10mg tablet PO SCH (20:00)
[2020-02-05] MEDS: benztropine 1mg tablet PO SCH (20:19)
[2020-02-05] MEDS: gabapentin 300mg capsule PO SCH (20:19)
[2020-02-05] MEDS: olanzapine 10mg tablet PO SCH (20:19)
[2020-02-05] MEDS: mirtazapine 15mg tablet PO SCH (20:19)
[2020-02-05 22:00] VITALS: BP 129/86
--- NOTE | 2020-02-05 22:20 | NUR ---
Pt tried to get up to beside commode by himself. He fell to the floor, hitting his left eyebrow area. Small cut on eyebrow, provided pt with washcloth and ice pack. Vitals 98.1, HR86, RR16, W4uxg21% RA, 129/86, blood sugar 82. Dr. Roper notified of fall. Ordered head CT. Pt back to bed with tabs and bed alarm on.
[2020-02-06 06:00] VITALS: BP 145/83
--- NOTE | 2020-02-06 06:05 | NUR ---
received report from temitope maya
--- NOTE | 2020-02-06 06:14 | NUR ---
Problems reprioritized. Patient report given, questions answered & plan of care reviewed with VIKI Sheriff.
[2020-02-06 06:25] LABS: BASOPHILS % (AUTO) 0.3 % (0-1); EOSINOPHILS # (AUTO) 0.1 X10'3 (0-0.9); EOSINOPHILS % (AUTO) 1.8 % (0-6); HEMOGLOBIN 10.7 g/dl (14.0-17.9); LYMPHOCYTES # (AUTO) 0.6 X10'3 (1.1-4.8); LYMPHOCYTES % (AUTO) 15.7 % (21-51); MEAN CORPUSCULAR HGB CONC 34.4 g/dL (33.0-36.5); MEAN CORPUSCULAR VOLUME 98.6 FL (78-98); MEAN PLATELET VOLUME 6.9 FL (7.4-10.4); MONOCYTES # (AUTO) 0.4 X10'3 (0-0.9); MONOCYTES % (AUTO) 8.8 % (2-12); NEUTROPHILS % (AUTO) 73.4 % (42-75); PLATELET COUNT 164 X10'3 (140-440); RED BLOOD COUNT 3.15 X10'6 (4.70-6.10); RED CELL DISTRIBUTION WIDTH 21.7 % (11.5-14.5)
[2020-02-06 06:36] LABS: ALANINE AMINOTRANSFERASE 31 U/L (12-78); ALBUMIN/GLOBULIN RATIO 0.7 (1.1-1.5); ALKALINE PHOSPHATASE 234 IU/L (46-116); ANION GAP 9 (8-16); ASPARTATE AMINO TRANSFERASE 42 U/L (10-37); BILIRUBIN,TOTAL 0.8 MG/DL (0.1-1.0); BLOOD UREA NITROGEN 7 MG/DL (7-18); BUN/CREATININE RATIO 14.6 (5.4-32.0); CALCIUM 7.5 MG/DL (8.5-10.1); CHLORIDE 109 MMOL/L (99-107); CREATININE 0.48 MG/DL (0.60-1.10); GLUCOSE 70 MG/DL (70-104); LIPASE 610 U/L (73-393); MAGNESIUM 1.8 MG/DL (1.5-2.4); POTASSIUM 3.1 MMOL/L (3.5-5.1); SODIUM 145 MMOL/L (135-145); TOTAL CARBON DIOXIDE 27.3 MMOL/L (24-32); TOTAL PROTEIN 4.7 G/DL (6.4-8.2); eGFR > 90 ML/MIN
[2020-02-06 07:10] LABS: ANISOCYTOSIS 3+
[2020-02-06 07:11] LABS: POLYCHROMASIA FEW
[2020-02-06 07:13] LABS: PLATELET ESTIMATE NORMAL
[2020-02-06] MEDS: K and/or MAG REPLACEMENT MC SCH ×2 (07:44→20:00)
[2020-02-06] MEDS: pantoprazole 40mg Tablet.DR PO SCH (07:54)
[2020-02-06] MEDS: benztropine 1mg tablet PO SCH ×2 (07:58→20:21)
[2020-02-06] MEDS: naltrexone 50mg tablet PO SCH (08:00)
[2020-02-06] MEDS: atenolol 25mg tablet PO SCH (08:01)
[2020-02-06] MEDS: potassium Cl 20 mEq SR tablet PO PRN ×3 (08:01→22:41)
[2020-02-06] MEDS: FLUoxetine 20mg capsule PO SCH (08:01)
[2020-02-06] MEDS: normal saline 1000ml 1,000 ML IV SCH (08:04)
[2020-02-06] MEDS: thiamine inj. 100 MG, MVI, adult No.4 with vit. K 10 ML in dextrose 5% water 500ml 500 ML IV SCH ×3 (08:05)
[2020-02-06] MEDS: heparin, porcine 5000 units/ml vial SQ SCH ×2 (08:08→20:28)
[2020-02-06] MEDS: morphine 2 MG/ML inj. syringe IV PRN ×2 (08:16→22:40)
[2020-02-06 10:00] VITALS: BP 125/76
[2020-02-06] MEDS: LORazepam 1 MG tablet PO PRN ×3 (13:03→21:08)
--- NOTE | 2020-02-06 15:44 | NUR ---
Student documentation: I have reviewed assessment performed and documented by [facility].
[2020-02-06 18:10] VITALS: BP 138/87
--- NOTE | 2020-02-06 18:24 | NUR ---
gave report to temitope barraza
--- NOTE | 2020-02-06 18:26 | NUR ---
Patient in room ORTHO 4021. I have received report from Sharita DREW and had the opportunity to ask questions and assume patient care.
[2020-02-06] MEDS: mirtazapine 15mg tablet PO SCH (20:21)
[2020-02-06] MEDS: gabapentin 300mg capsule PO SCH (20:23)
[2020-02-06] MEDS: olanzapine 10mg tablet PO SCH (20:23)
[2020-02-06] MEDS ORDERED: dextrose ORAL solution 15 GM/59 ML bottle PO PRN ×2 (21:20)
[2020-02-06] MEDS ORDERED: dextrose 50%-water 50ml dispensing syringe IV PRN ×2 (21:20)
[2020-02-06] MEDS ORDERED: glucagon, human recombinant 1mg kit SUBCUT PRN (21:20)
--- NOTE | 2020-02-06 21:45 | NUR ---
Received report and assumed pt care.
[2020-02-06 22:32] VITALS: BP 145/95
[2020-02-06] MEDS: temazepam 15mg capsule PO PRN (22:40)
[2020-02-07] MEDS: normal saline 1000ml 1,000 ML IV SCH ×2 (05:55→07:21)
[2020-02-07 06:00] VITALS: BP 131/83
--- NOTE | 2020-02-07 06:10 | NUR ---
receive report from temitope hurtado
[2020-02-07 06:54] LABS: BASOPHILS % (AUTO) 0.6 % (0-1); EOSINOPHILS # (AUTO) 0.2 X10'3 (0-0.9); EOSINOPHILS % (AUTO) 4.8 % (0-6); HEMATOCRIT 33.7 % (42.0-52.0); HEMOGLOBIN 11.5 g/dl (14.0-17.9); LYMPHOCYTES # (AUTO) 0.9 X10'3 (1.1-4.8); LYMPHOCYTES % (AUTO) 20.8 % (21-51); MEAN CORPUSCULAR HEMOGLOBIN 33.7 PG (27.0-31.0); MEAN CORPUSCULAR VOLUME 99.1 FL (78-98); MEAN PLATELET VOLUME 6.6 FL (7.4-10.4); MONOCYTES # (AUTO) 0.4 X10'3 (0-0.9); NEUTROPHILS # (AUTO) 2.8 X10'3 (1.8-7.7); NEUTROPHILS % (AUTO) 63.8 % (42-75); PLATELET COUNT 217 X10'3 (140-440); RED CELL DISTRIBUTION WIDTH 21.4 % (11.5-14.5); WHITE BLOOD COUNT 4.4 X10'3 (4.5-11.0)
[2020-02-07 07:09] LABS: ALANINE AMINOTRANSFERASE 37 U/L (12-78); ALBUMIN/GLOBULIN RATIO 0.6 (1.1-1.5); ALKALINE PHOSPHATASE 215 IU/L (46-116); ANION GAP 10 (8-16); ASPARTATE AMINO TRANSFERASE 63 U/L (10-37); BILIRUBIN,TOTAL 0.5 MG/DL (0.1-1.0); BLOOD UREA NITROGEN 7 MG/DL (7-18); CALCIUM 7.9 MG/DL (8.5-10.1); CHLORIDE 109 MMOL/L (99-107); GLUCOSE 63 MG/DL (70-104); LIPASE 761 U/L (73-393); MAGNESIUM 1.9 MG/DL (1.5-2.4); SODIUM 145 MMOL/L (135-145); TOTAL CARBON DIOXIDE 26.1 MMOL/L (24-32); TOTAL PROTEIN 5.2 G/DL (6.4-8.2); eGFR > 90 ML/MIN
[2020-02-07] MEDS: pantoprazole 40mg Tablet.DR PO SCH (07:12)
[2020-02-07] MEDS: benztropine 1mg tablet PO SCH ×2 (07:12→20:06)
[2020-02-07] MEDS: naltrexone 50mg tablet PO SCH (07:13)
[2020-02-07] MEDS: FLUoxetine 20mg capsule PO SCH (07:14)
[2020-02-07 07:15] LABS: POTASSIUM 3.7 MMOL/L (3.5-5.1)
[2020-02-07] MEDS: atenolol 25mg tablet PO SCH (07:15)
[2020-02-07] MEDS: LORazepam 1 MG tablet PO PRN ×4 (07:16→21:27)
[2020-02-07] MEDS: heparin, porcine 5000 units/ml vial SQ SCH ×2 (07:18→20:07)
[2020-02-07] MEDS: K and/or MAG REPLACEMENT MC SCH ×2 (07:27→19:58)
[2020-02-07] MEDS: thiamine inj. 100 MG, MVI, adult No.4 with vit. K 10 ML in dextrose 5% water 500ml 500 ML IV SCH ×3 (07:27)
[2020-02-07 07:28] LABS: ANISOCYTOSIS 3+; POLYCHROMASIA 1+
[2020-02-07 07:29] LABS: PLATELET ESTIMATE NORMAL
[2020-02-07 10:00] VITALS: BP 142/84
[2020-02-07] MEDS: dextrose 5%-normal saline 1,000 ML IV SCH (13:25)
[2020-02-07 14:00] VITALS: BP 131/77
--- NOTE | 2020-02-07 14:43 | NUR ---
Initial: Pt admit DX chronic pancreatitis, etoh abuse, and N/V. Receiving banana bag for etoh hx. Initially on clear liquid diet though NPO at this time. Lipase down to 761 from 1342 initially. Will monitor for PO diet advancement and tolerance this admit. IF prolonged NPO may benefit from EN to meet nutrient needs. Rec: 1. advance diet as medically indicated to low fat 2. thiamin, folic, MVI for etoh hx 3. monitor for ONS needs once PO diet advances 4. bowel care per rx 5. IF prolonged NPO may benefit from EN to meet nutrition needs 6. scaled wt this admit Addendum: 02/07/20 at [address] Amended: Links added.
--- NOTE | 2020-02-07 14:59 | NUR ---
Student documentation: I have reviewed assessment performed and documented by [facility].
[2020-02-07 18:00] VITALS: BP 139/74
--- NOTE | 2020-02-07 18:15 | NUR ---
GAVE REPORT TO VIKI OROURKE
--- NOTE | 2020-02-07 18:49 | NUR ---
Patient in room ORTHO 4021. I have received report from Sharita DREW and had the opportunity to ask questions and assume patient care.
[2020-02-07] MEDS: mirtazapine 15mg tablet PO SCH (20:06)
[2020-02-07] MEDS: gabapentin 300mg capsule PO SCH (20:06)
[2020-02-07] MEDS: olanzapine 10mg tablet PO SCH (20:06)
[2020-02-07 22:00] VITALS: BP 154/89
[2020-02-08] MEDS: dextrose 5%-normal saline 1,000 ML IV SCH ×2 (00:32→13:38)
[2020-02-08] MEDS: LORazepam 1 MG tablet PO PRN ×4 (04:48→21:02)
[2020-02-08 06:00] VITALS: BP 137/90
--- NOTE | 2020-02-08 06:35 | NUR ---
Problems reprioritized. Patient report given, questions answered & plan of care reviewed with Chantelle DREW.
[2020-02-08 07:07] LABS: BASOPHILS % (AUTO) 0.6 % (0-1); EOSINOPHILS # (AUTO) 0.2 X10'3 (0-0.9); EOSINOPHILS % (AUTO) 5.6 % (0-6); HEMATOCRIT 33.4 % (42.0-52.0); HEMOGLOBIN 11.5 g/dl (14.0-17.9); LYMPHOCYTES # (AUTO) 0.9 X10'3 (1.1-4.8); LYMPHOCYTES % (AUTO) 24.9 % (21-51); MEAN CORPUSCULAR HEMOGLOBIN 33.8 PG (27.0-31.0); MEAN CORPUSCULAR HGB CONC 34.3 g/dL (33.0-36.5); MEAN CORPUSCULAR VOLUME 98.6 FL (78-98); MEAN PLATELET VOLUME 6.8 FL (7.4-10.4); MONOCYTES # (AUTO) 0.5 X10'3 (0-0.9); MONOCYTES % (AUTO) 11.9 % (2-12); NEUTROPHILS # (AUTO) 2.2 X10'3 (1.8-7.7); PLATELET COUNT 227 X10'3 (140-440); RED BLOOD COUNT 3.39 X10'6 (4.70-6.10); RED CELL DISTRIBUTION WIDTH 21.9 % (11.5-14.5); WHITE BLOOD COUNT 3.8 X10'3 (4.5-11.0)
[2020-02-08 07:16] LABS: ALANINE AMINOTRANSFERASE 38 U/L (12-78); ALBUMIN 2.1 G/DL (3.4-5.0); ALBUMIN/GLOBULIN RATIO 0.7 (1.1-1.5); ALKALINE PHOSPHATASE 192 IU/L (46-116); ANION GAP 7 (8-16); ASPARTATE AMINO TRANSFERASE 50 U/L (10-37); BILIRUBIN,TOTAL 0.5 MG/DL (0.1-1.0); BLOOD UREA NITROGEN 5 MG/DL (7-18); BUN/CREATININE RATIO 10.4 (5.4-32.0); CALCIUM 7.9 MG/DL (8.5-10.1); CHLORIDE 111 MMOL/L (99-107); CREATININE 0.48 MG/DL (0.60-1.10); GLUCOSE 101 MG/DL (70-104); LIPASE 736 U/L (73-393); MAGNESIUM 1.9 MG/DL (1.5-2.4); POTASSIUM 3.1 MMOL/L (3.5-5.1); SODIUM 145 MMOL/L (135-145); TOTAL CARBON DIOXIDE 27.4 MMOL/L (24-32); TOTAL PROTEIN 5.2 G/DL (6.4-8.2); eGFR > 90 ML/MIN
[2020-02-08] MEDS: K and/or MAG REPLACEMENT MC SCH ×2 (08:00→20:00)
[2020-02-08] MEDS: multivitamins, therapeutics tablet PO SCH (08:45)
[2020-02-08] MEDS: naltrexone 50mg tablet PO SCH (08:45)
[2020-02-08] MEDS: thiamine 100mg tablet PO SCH (08:45)
[2020-02-08] MEDS: benztropine 1mg tablet PO SCH ×2 (08:45→21:02)
[2020-02-08] MEDS: FLUoxetine 20mg capsule PO SCH (08:45)
[2020-02-08] MEDS: pantoprazole 40mg Tablet.DR PO SCH (08:45)
[2020-02-08] MEDS: atenolol 25mg tablet PO SCH (08:46)
[2020-02-08] MEDS: heparin, porcine 5000 units/ml vial SQ SCH ×2 (08:47→21:03)
[2020-02-08 10:00] VITALS: BP 157/96
[2020-02-08 10:13] LABS: ANISOCYTOSIS 3+; PLATELET ESTIMATE NORMAL
[2020-02-08 10:14] LABS: POLYCHROMASIA FEW
[2020-02-08] MEDS ORDERED: potassium CL 10mEq/100ml bag 100 ML IV PRN (11:55)
[2020-02-08] MEDS ORDERED: LORazepam 1 MG tablet PO PRN (11:55)
[2020-02-08] MEDS ORDERED: potassium Cl 20 mEq SR tablet PO PRN (11:55)
[2020-02-08] MEDS ORDERED: magnesium Cl slow-release 64mg tablet PO PRN (11:55)
[2020-02-08] MEDS ORDERED: magnesium 4gm in 100ml NS 100 ML IV PRN (11:55)
[2020-02-08] MEDS: potassium Cl 20 mEq SR tablet PO PRN ×3 (13:39→21:54)
--- NOTE | 2020-02-08 14:27 | NUR ---
Paged Dr. Mckeon- patient is extremely anxious, can we switch ativan to q8 instead of q6 hrs.
--- NOTE | 2020-02-08 14:31 | NUR ---
Spoke with Dietitian about consult, recommends a clear liquid diet, she will call and speak with Dr. Mckeon directly.
--- NOTE | 2020-02-08 16:51 | NUR ---
TPN consult: D/w RN who reports consult was for RD inquiry about recommended path of nutrition. Lipase 736 today. Per MD notes pt wanting to eat. D/w RN and paged recommendation to trial PO diet advancement to clear liquids however pt would benefit from PPN for short term nutrition if pt unable to tolerate PO diet. Pt remains NPO at this time. Followed up with RN regarding RD not receiving a response from MD. Will continue to follow closely. Addendum: 02/08/20 at [address] Amended: Links added.
[2020-02-08 18:00] VITALS: BP 142/89
--- NOTE | 2020-02-08 18:29 | NUR ---
Problems reprioritized. Patient report given, questions answered & plan of care reviewed with Renea DREW.
--- NOTE | 2020-02-08 18:41 | NUR ---
Patient in room ORTHO 4021. I have received report from Chantelle DREW and had the opportunity to ask questions and assume patient care.
[2020-02-08] MEDS: gabapentin 300mg capsule PO SCH (21:03)
[2020-02-08] MEDS: mirtazapine 15mg tablet PO SCH (21:03)
[2020-02-08] MEDS: olanzapine 10mg tablet PO SCH (21:03)
[2020-02-08 22:00] VITALS: BP 137/80
[2020-02-09] MEDS: LORazepam 1 MG tablet PO PRN ×3 (03:18→19:03)
[2020-02-09] MEDS: dextrose 5%-normal saline 1,000 ML IV SCH ×2 (03:19→15:54)
--- NOTE | 2020-02-09 06:12 | NUR ---
Problems reprioritized. Patient report given, questions answered & plan of care reviewed with Chantelle DREW.
[2020-02-09 06:34] VITALS: BP 130/68
[2020-02-09] MEDS: thiamine 100mg tablet PO SCH (07:37)
[2020-02-09] MEDS: naltrexone 50mg tablet PO SCH (07:37)
[2020-02-09] MEDS: benztropine 1mg tablet PO SCH ×2 (07:37→20:59)
[2020-02-09] MEDS: atenolol 25mg tablet PO SCH (07:38)
[2020-02-09] MEDS: FLUoxetine 20mg capsule PO SCH (07:38)
[2020-02-09] MEDS: multivitamins, therapeutics tablet PO SCH (07:38)
[2020-02-09] MEDS: pantoprazole 40mg Tablet.DR PO SCH (07:38)
[2020-02-09] MEDS: heparin, porcine 5000 units/ml vial SQ SCH ×2 (07:39→21:00)
[2020-02-09] MEDS: K and/or MAG REPLACEMENT MC SCH ×2 (08:00→19:04)
[2020-02-09 10:00] VITALS: BP 131/86
[2020-02-09 12:54] LABS: BASOPHILS % (AUTO) 0.6 % (0-1); EOSINOPHILS # (AUTO) 0.2 X10'3 (0-0.9); EOSINOPHILS % (AUTO) 4.6 % (0-6); HEMATOCRIT 35.5 % (42.0-52.0); HEMOGLOBIN 12.4 g/dl (14.0-17.9); MEAN CORPUSCULAR HEMOGLOBIN 34.2 PG (27.0-31.0); MEAN CORPUSCULAR HGB CONC 34.8 g/dL (33.0-36.5); MEAN CORPUSCULAR VOLUME 98.5 FL (78-98); MEAN PLATELET VOLUME 6.8 FL (7.4-10.4); MONOCYTES # (AUTO) 0.5 X10'3 (0-0.9); NEUTROPHILS # (AUTO) 1.9 X10'3 (1.8-7.7); NEUTROPHILS % (AUTO) 52.8 % (42-75); PLATELET COUNT 237 X10'3 (140-440); RED BLOOD COUNT 3.61 X10'6 (4.70-6.10); RED CELL DISTRIBUTION WIDTH 22.7 % (11.5-14.5); WHITE BLOOD COUNT 3.7 X10'3 (4.5-11.0)
[2020-02-09 13:07] LABS: ALBUMIN 2.5 G/DL (3.4-5.0); ANION GAP 5 (8-16); BLOOD UREA NITROGEN 3 MG/DL (7-18); BUN/CREATININE RATIO 4.7 (5.4-32.0); CALCIUM 8.6 MG/DL (8.5-10.1); CHLORIDE 108 MMOL/L (99-107); CREATININE 0.64 MG/DL (0.60-1.10); GLUCOSE 105 MG/DL (70-104); POTASSIUM 3.3 MMOL/L (3.5-5.1); SODIUM 142 MMOL/L (135-145); TOTAL CARBON DIOXIDE 29.5 MMOL/L (24-32); eGFR > 90 ML/MIN
[2020-02-09] MEDS: potassium Cl 20 mEq SR tablet PO PRN ×3 (13:32→21:53)
[2020-02-09 16:00] LABS: LIPASE 861 U/L (73-393)
[2020-02-09 18:00] VITALS: BP 147/85
--- NOTE | 2020-02-09 18:16 | NUR ---
Problems reprioritized. Patient report given, questions answered & plan of care reviewed with Renea DREW.
--- NOTE | 2020-02-09 18:21 | NUR ---
Patient in room ORTHO 4021. I have received report from Chantelle DREW and had the opportunity to ask questions and assume patient care.
[2020-02-09] MEDS: olanzapine 10mg tablet PO SCH (20:59)
[2020-02-09] MEDS: gabapentin 300mg capsule PO SCH (20:59)
[2020-02-09] MEDS: mirtazapine 15mg tablet PO SCH (20:59)
[2020-02-09 22:00] VITALS: BP 135/85
[2020-02-10] MEDS: LORazepam 1 MG tablet PO PRN ×3 (00:48→14:10)
[2020-02-10] MEDS: dextrose 5%-normal saline 1,000 ML IV SCH (03:22)
[2020-02-10 06:00] VITALS: BP 144/88
[2020-02-10 06:20] LABS: MAGNESIUM 1.6 MG/DL (1.5-2.4)
--- NOTE | 2020-02-10 06:25 | NUR ---
Problems reprioritized. Patient report given, questions answered & plan of care reviewed with Amber DREW.
--- NOTE | 2020-02-10 06:38 | NUR ---
Patient in room ORTHO 4021. I have received report from Renea and had the opportunity to ask questions and assume patient care.
[2020-02-10] MEDS: pantoprazole 40mg Tablet.DR PO SCH (07:49)
[2020-02-10] MEDS: benztropine 1mg tablet PO SCH (07:50)
[2020-02-10] MEDS: naltrexone 50mg tablet PO SCH (07:50)
[2020-02-10] MEDS: atenolol 25mg tablet PO SCH (07:51)
[2020-02-10] MEDS: FLUoxetine 20mg capsule PO SCH (07:51)
[2020-02-10] MEDS: multivitamins, therapeutics tablet PO SCH (07:52)
[2020-02-10] MEDS: thiamine 100mg tablet PO SCH (07:52)
[2020-02-10] MEDS: heparin, porcine 5000 units/ml vial SQ SCH (07:56)
[2020-02-10] MEDS: K and/or MAG REPLACEMENT MC SCH (08:00)
[2020-02-10 08:31] LABS: ALBUMIN 2.3 G/DL (3.4-5.0); ANION GAP 7 (8-16); BLOOD UREA NITROGEN 3 MG/DL (7-18); BUN/CREATININE RATIO 4.5 (5.4-32.0); CALCIUM 7.8 MG/DL (8.5-10.1); CHLORIDE 112 MMOL/L (99-107); CREATININE 0.66 MG/DL (0.60-1.10); GLUCOSE 102 MG/DL (70-104); POTASSIUM 3.5 MMOL/L (3.5-5.1); SODIUM 145 MMOL/L (135-145); TOTAL CARBON DIOXIDE 25.8 MMOL/L (24-32); eGFR > 90 ML/MIN
[2020-02-10 09:29] LABS: LIPASE 740 U/L (73-393)
[2020-02-10 10:00] VITALS: BP 146/90
--- NOTE | 2020-02-10 12:00 | NUR ---
Student documentation: I have reviewed all interventions, assessments performed and documented by Anmol DE
[2020-02-10] MEDS ORDERED: MULT-25 PO (14:09)
[2020-02-10] MEDS ORDERED: thiamine tablet PO (14:09)
--- NOTE | 2020-02-10 16:27 | NUR ---
Spoke to patient mom about him being discharged patient is alert and oriented. She was concerned about him starting to drink again explained to her he needs to go to rehab or find a AA meeting to help obstain from alcohol.
== END 2020-02-10 16:30 | disposition home or self-care (01) | DRG 280 ==
LOC: ER 21:47 → ED HOLD 23:40 → ORTHO 4S 02-04 00:50
PROVIDERS: ADMIT Internal Medicine; ATTEND Internal Medicine
DX: K70.10 Alcoholic hepatitis without ascites (principal); K85.20 Alcohol induced acute pancreatitis without necrosis or infection; K86.1 Other chronic pancreatitis; K85.90 Acute pancreatitis without necrosis or infection, unspecified; E87.6 Hypokalemia; F10.229 Alcohol dependence with intoxication, unspecified; F31.9 Bipolar disorder, unspecified; R74.0 Nonspecific elevation of levels of transaminase and lactic acid dehydrogenase [LDH]; Z79.899 Other long term (current) drug therapy
CPT/HCPCS: 36415; 70450; 76700; 76937; 80048; 80053; 80320; 82948; 83690; 83735; 84100; 84132; 85007; 85008; 85025; 87081; 93005; 96361; 96374; 96375; 97110; 97116; 97161; 97530; 99285; C9113; G0378; J1644; J2060; J2270; J2405; J2765; J3411; J3480; J3490; J7030; J7042; J7060

== ENCOUNTER 2020-03-17 09:04 | Emergency (ER) | payer MEDICAID ==
[~2020-03-17] VITALS: Ht 175.3 cm; Wt 77.3 kg
[~2020-03-17 09:04] MED LIST changes: +MULT-25 PO; +ONDA-103 PO; -PANT-47 PO; -POTA20TA19 PO; +thiamine tablet PO
[2020-03-17 09:43] LABS: BASOPHILS % (AUTO) 0.5 % (0-1); EOSINOPHILS % (AUTO) 0.7 % (0-6); HEMATOCRIT 41.1 % (42.0-52.0); LYMPHOCYTES # (AUTO) 0.6 X10'3 (1.1-4.8); LYMPHOCYTES % (AUTO) 15.2 % (21-51); MEAN CORPUSCULAR HEMOGLOBIN 32.9 PG (27.0-31.0); MEAN CORPUSCULAR HGB CONC 34.1 g/dL (33.0-36.5); MEAN CORPUSCULAR VOLUME 96.5 FL (78-98); MEAN PLATELET VOLUME 8.3 FL (7.4-10.4); MONOCYTES # (AUTO) 0.5 X10'3 (0-0.9); MONOCYTES % (AUTO) 12.5 % (2-12); NEUTROPHILS # (AUTO) 2.6 X10'3 (1.8-7.7); NEUTROPHILS % (AUTO) 71.1 % (42-75); PLATELET COUNT 250 X10'3 (140-440); RED BLOOD COUNT 4.26 X10'6 (4.70-6.10); RED CELL DISTRIBUTION WIDTH 16.3 % (11.5-14.5); WHITE BLOOD COUNT 3.7 X10'3 (4.5-11.0)
[2020-03-17] MEDS ORDERED: diphenhydrAMINE 50 mg/ml inj IV ONE (09:45)
[2020-03-17] MEDS ORDERED: ondansetron/PF 4mg/2ml inj IV ONE (09:45)
[2020-03-17] MEDS ORDERED: morphine 10mg/ml inj. IV ONE ×2 (09:45→11:00)
[2020-03-17 09:58] LABS: ALANINE AMINOTRANSFERASE 121 U/L (12-78); ALBUMIN 3.6 G/DL (3.4-5.0); ALBUMIN/GLOBULIN RATIO 1.1 (1.1-1.5); ALKALINE PHOSPHATASE 321 IU/L (46-116); AMYLASE 44 U/L (25-115); ANION GAP 12 (8-16); ASPARTATE AMINO TRANSFERASE 129 U/L (10-37); BILIRUBIN,TOTAL 0.9 MG/DL (0.1-1.0); BLOOD UREA NITROGEN 2 MG/DL (7-18); BUN/CREATININE RATIO 2.4 (5.4-32.0); CALCIUM 8.9 MG/DL (8.5-10.1); CHLORIDE 97 MMOL/L (99-107); CREATININE 0.82 MG/DL (0.60-1.10); GLUCOSE 129 MG/DL (70-104); LIPASE 169 U/L (73-393); SODIUM 137 MMOL/L (135-145); TOTAL CARBON DIOXIDE 27.7 MMOL/L (24-32); TOTAL PROTEIN 6.9 G/DL (6.4-8.2); eGFR > 90 ML/MIN
[2020-03-17 10:01] LABS: POTASSIUM 2.9 MMOL/L (3.5-5.1)
[2020-03-17] MEDS ORDERED: potassium Cl 10 mEq/100mL bag IV ONE (10:05)
[2020-03-17] MEDS ORDERED: LORazepam 2 mg/ml vial IV ONE (10:20)
[2020-03-17] MEDS ORDERED: normal saline 1000ML IV soln IVB ONE (10:25)
[2020-03-17 10:41] LABS: MAGNESIUM 1.6 MG/DL (1.5-2.4); PHOSPHORUS 4.3 MG/DL (2.3-4.5)
[2020-03-17] MEDS ORDERED: haloperidol lactate 5mg/ml inj IM ONE (11:00)
[2020-03-17] MEDS ORDERED: fentaNYL/PF 50MCG/1 ML 2ML syringe IV ONE (12:00)
[2020-03-17] MEDS ORDERED: POTA-82 PO (13:18)
--- NOTE | 2020-03-17 16:00 | NUR ---
ENEDELIA JAMISON OK TO DISCHARGE WITHOUT OBTAINING URINE SAMPLE, PATIENT REFUSED STRIGHT CATH
--- NOTE | 2020-03-17 16:14 | NUR ---
LEFT AC PIV DCD, SITE CLEAR, CANNULA INTACT PRIMARY RN TYRON CALLED [facility] FOR DC HOME. PATIENT AMBULATED 100 FEET WITHOUT ASSISTANCE.
[2020-03-17 16:39] VITALS: BP 110/79
== END 2020-03-17 16:30 | disposition home or self-care (01) ==
LOC: ER 09:04
DX: R10.84 Generalized abdominal pain (principal); F10.129 Alcohol abuse with intoxication, unspecified; E87.6 Hypokalemia; F41.9 Anxiety disorder, unspecified; F31.9 Bipolar disorder, unspecified; F29 Unspecified psychosis not due to a substance or known physiological condition; F17.200 Nicotine dependence, unspecified, uncomplicated; F15.10 Other stimulant abuse, uncomplicated; K85.90 Acute pancreatitis without necrosis or infection, unspecified; Z88.8 Allergy status to other drugs, medicaments and biological substances
CPT/HCPCS: 36415; 71045; 80053; 82150; 83690; 83735; 83880; 84100; 84484; 85025; 93005; 96361; 96365; 96372; 96375; 96376; 99285; J1200; J1630; J2060; J2270; J2405; J3010; J3480; J7030; 96374

== ENCOUNTER 2020-04-01 10:08 | Inpatient (IN) | payer MEDICAID ==
[~2020-04-01] VITALS: Ht 175.3 cm; Wt 76.8 kg
[~2020-04-01 10:08] MED LIST changes: +POTA-82 PO
--- NOTE | 2020-04-01 11:53 | NUR ---
Pt states he is a drinker not a druggie. Pt states he feels terrible after doing meth and "I havent eaten in days". Pt singing as his blood is being drawn.
--- NOTE | 2020-04-01 11:55 | NUR ---
Pt states "I drank to calm me down, but I have pancreatitis, so I shouldnt be drinking". Pt continues rambling about various topics.
[2020-04-01 12:11] LABS: BASOPHILS % (AUTO) 0.5 % (0-1); EOSINOPHILS % (AUTO) 0.5 % (0-6); HEMATOCRIT 41.7 % (42.0-52.0); HEMOGLOBIN 14.7 g/dl (14.0-17.9); LYMPHOCYTES # (AUTO) 1.1 X10'3 (1.1-4.8); LYMPHOCYTES % (AUTO) 15.5 % (21-51); MEAN CORPUSCULAR HEMOGLOBIN 33.1 PG (27.0-31.0); MEAN CORPUSCULAR HGB CONC 35.3 g/dL (33.0-36.5); MEAN CORPUSCULAR VOLUME 93.8 FL (78-98); MEAN PLATELET VOLUME 8.1 FL (7.4-10.4); MONOCYTES # (AUTO) 0.9 X10'3 (0-0.9); MONOCYTES % (AUTO) 12.2 % (2-12); NEUTROPHILS # (AUTO) 5.1 X10'3 (1.8-7.7); NEUTROPHILS % (AUTO) 71.3 % (42-75); PLATELET COUNT 307 X10'3 (140-440); RED BLOOD COUNT 4.44 X10'6 (4.70-6.10); RED CELL DISTRIBUTION WIDTH 15.1 % (11.5-14.5); WHITE BLOOD COUNT 7.1 X10'3 (4.5-11.0)
[2020-04-01] MEDS ORDERED: morphine 4 MG/ML inj SYRINge IM ONE (12:25)
[2020-04-01] MEDS ORDERED: ondansetron 4mg rapidly disintigrating tab PO ONE (12:25)
[2020-04-01] MEDS ORDERED: aspirin 325mg tablet PO ONE (12:25)
[2020-04-01 12:30] LABS: ALANINE AMINOTRANSFERASE 21 U/L (12-78); ALBUMIN 3.4 G/DL (3.4-5.0); ALBUMIN/GLOBULIN RATIO 1.1 (1.1-1.5); ALKALINE PHOSPHATASE 143 IU/L (46-116); ANION GAP 15 (8-16); ASPARTATE AMINO TRANSFERASE 17 U/L (10-37); BILIRUBIN,TOTAL 1.2 MG/DL (0.1-1.0); BLOOD UREA NITROGEN 5 MG/DL (7-18); BUN/CREATININE RATIO 6.1 (5.4-32.0); CALCIUM 8.5 MG/DL (8.5-10.1); CHLORIDE 95 MMOL/L (99-107); CREATININE 0.82 MG/DL (0.60-1.10); GLUCOSE 115 MG/DL (70-104); LIPASE 104 U/L (73-393); SODIUM 132 MMOL/L (135-145); TOTAL CARBON DIOXIDE 22.5 MMOL/L (24-32); TOTAL PROTEIN 6.6 G/DL (6.4-8.2); eGFR > 90 ML/MIN
[2020-04-01 12:39] LABS: POTASSIUM 2.7 MMOL/L (3.5-5.1)
[2020-04-01] MEDS ORDERED: potassium 10mEq/100ml NS w/LIDOcaine (10mg/bag) IV ONE (12:55)
[2020-04-01] MEDS ORDERED: potassium Cl 20 mEq SR tablet PO ONE (12:55)
[2020-04-01] MEDS ORDERED: LORazepam 2 mg/ml vial IM ONE (13:00)
[2020-04-01] MEDS ORDERED: potassium Cl 10 mEq/100mL bag IV ONE (13:00)
[2020-04-01] MEDS ORDERED: normal saline 1000ml 1,000 ML IV ONE (13:00)
[2020-04-01 13:13] LABS: MAGNESIUM 1.5 MG/DL (1.5-2.4)
[2020-04-01] MEDS ORDERED: iohexol 300mg/ml 100ml inj. ONE (13:22)
[2020-04-01] MEDS ORDERED: ondansetron/PF 4mg/2ml inj IV PRN (15:30)
[2020-04-01] MEDS ORDERED: HYDROcodone/acetaminophen 5mg/325mg tablet PO PRN (15:30)
[2020-04-01] MEDS ORDERED: morphine 2 MG/ML inj. syringe IV PRN ×2 (15:30)
[2020-04-01] MEDS ORDERED: HYDROcodone/acetaminophen 10/325mg tab PO PRN (15:30)
[2020-04-01] MEDS ORDERED: acetaminophen 325mg tablet PO PRN ×2 (15:30)
[2020-04-01] MEDS ORDERED: magnesium hydroxide 30ml (MOM) UD suspension PO PRN (15:30)
[2020-04-01] MEDS ORDERED: mag hydrox/Alum hydrox/simeth 30ml oral suspension PO PRN (15:30)
[2020-04-01] MEDS ORDERED: OLAN5TAB26 PO (15:46)
[2020-04-01] MEDS ORDERED: LORA-269 PO (15:46)
[2020-04-01] MEDS ORDERED: POTA-82 PO (15:46)
[2020-04-01] MEDS: dextrose 5%-1/2 normal saline 1,000 ML IV SCH (16:17)
--- NOTE | 2020-04-01 16:24 | NUR ---
PATIENT TO MRI IN WC
--- NOTE | 2020-04-01 17:35 | NUR ---
Patient in room FRANNIE 347. I have received report from Renea DREW from ED and had the opportunity to ask questions and assume patient care.
[2020-04-01 18:50] VITALS: BP 107/54
--- NOTE | 2020-04-01 18:51 | NUR ---
Patient in room FRANNIE 347. I have received report from Sandie DREW and had the opportunity to ask questions and assume patient care. Pt laying in bed playing on his phone, still dressed in his clothes. Discussed plan for the night. No signs of distress at this time. Will continue to monitor.
--- NOTE | 2020-04-01 18:55 | NUR ---
Problems reprioritized. Patient report given, questions answered & plan of care reviewed with Aiyana DREW.
[2020-04-01] MEDS: potassium Cl 20 mEq SR tablet PO SCH (19:36)
[2020-04-01] MEDS: LORazepam 0.5 MG tablet PO PRN (19:36)
[2020-04-01] MEDS: benztropine 1mg tablet PO SCH (19:37)
[2020-04-01] MEDS: propranolol 40mg tablet PO SCH (19:37)
[2020-04-01 20:00] VITALS: BP 98/64
[2020-04-01] MEDS ORDERED: haloperidol lactate 5mg/ml inj IM PRN (21:40)
[2020-04-01] MEDS ORDERED: LORazepam 2 mg/ml vial IV PRN (21:40)
[2020-04-01] MEDS ORDERED: thiamine 100mg/ml 2ml inj. IV ONE (21:40)
[2020-04-01] MEDS ORDERED: haloperidol 5mg tablet PO PRN (21:40)
[2020-04-01] MEDS ORDERED: dextrose 50%-water 50ml dispensing syringe IV PRN (21:40)
[2020-04-01] MEDS: olanzapine 10mg tablet PO SCH (22:14)
[2020-04-01] MEDS: mirtazapine 15mg tablet PO SCH (22:14)
[2020-04-01] MEDS: gabapentin 300mg capsule PO SCH (22:15)
[2020-04-01 23:34] VITALS: BP 117/78
[2020-04-02] MEDS: dextrose 5%-1/2 normal saline 1,000 ML IV SCH ×3 (01:30→18:00)
[2020-04-02 05:08] LABS: BASOPHILS % (AUTO) 0.3 % (0-1); EOSINOPHILS % (AUTO) 0.9 % (0-6); HEMATOCRIT 41.6 % (42.0-52.0); HEMOGLOBIN 14.3 g/dl (14.0-17.9); LYMPHOCYTES # (AUTO) 1.2 X10'3 (1.1-4.8); MEAN CORPUSCULAR HGB CONC 34.3 g/dL (33.0-36.5); MEAN CORPUSCULAR VOLUME 96.2 FL (78-98); MEAN PLATELET VOLUME 8.4 FL (7.4-10.4); MONOCYTES # (AUTO) 0.7 X10'3 (0-0.9); MONOCYTES % (AUTO) 12.8 % (2-12); NEUTROPHILS # (AUTO) 3.4 X10'3 (1.8-7.7); PLATELET COUNT 217 X10'3 (140-440); RED BLOOD COUNT 4.33 X10'6 (4.70-6.10); RED CELL DISTRIBUTION WIDTH 14.6 % (11.5-14.5); WHITE BLOOD COUNT 5.3 X10'3 (4.5-11.0)
[2020-04-02 05:19] LABS: ALANINE AMINOTRANSFERASE 35 U/L (12-78); ALKALINE PHOSPHATASE 174 IU/L (46-116); ANION GAP 5 (8-16); ASPARTATE AMINO TRANSFERASE 74 U/L (10-37); BILIRUBIN,TOTAL 1.8 MG/DL (0.1-1.0); BLOOD UREA NITROGEN 4 MG/DL (7-18); BUN/CREATININE RATIO 4.8 (5.4-32.0); CALCIUM 8.2 MG/DL (8.5-10.1); CHLORIDE 101 MMOL/L (99-107); CREATININE 0.84 MG/DL (0.60-1.10); GLUCOSE 124 MG/DL (70-104); POTASSIUM 3.2 MMOL/L (3.5-5.1); SODIUM 135 MMOL/L (135-145); TOTAL CARBON DIOXIDE 28.6 MMOL/L (24-32); TOTAL PROTEIN 5.9 G/DL (6.4-8.2); eGFR > 90 ML/MIN
--- NOTE | 2020-04-02 06:35 | NUR ---
Problems reprioritized. Patient report given, questions answered & plan of care reviewed with Logan DREW.
--- NOTE | 2020-04-02 06:43 | NUR ---
Patient in room FRANNIE 347. I have received report from VIKI Bronson and had the opportunity to ask questions and assume patient care.
[2020-04-02 07:00] VITALS: BP 125/71
[2020-04-02] MEDS: benztropine 1mg tablet PO SCH ×2 (07:53→19:34)
[2020-04-02] MEDS: potassium Cl 20 mEq SR tablet PO SCH ×2 (07:53→19:34)
[2020-04-02] MEDS: OLANZAPINE 5 MG TABLET PO SCH (07:53)
[2020-04-02] MEDS: FLUoxetine 20mg capsule PO SCH (07:53)
[2020-04-02] MEDS: pantoprazole 40mg Tablet.DR PO SCH (07:53)
[2020-04-02] MEDS: naltrexone 50mg tablet PO SCH (07:53)
[2020-04-02] MEDS: propranolol 40mg tablet PO SCH ×2 (07:54→19:34)
[2020-04-02] MEDS ORDERED: thiamine inj. 100 MG, MVI, adult No.4 with vit. K 10 ML in dextrose 5% water 500ml 500 ML IV SCH ×3 (08:00)
[2020-04-02] MEDS ORDERED: folic acid 1mg/0.2ml inj IV SCH (08:00)
[2020-04-02] MEDS: LORazepam 0.5 MG tablet PO PRN ×2 (08:05→16:37)
[2020-04-02] MEDS ORDERED: FLU VACC QS2020-21(6MOS UP)/PF 60 MCG/0.5 ML SYRINGE IMVAC ONE (10:00)
--- NOTE | 2020-04-02 10:24 | NUR ---
Dr. Morataya in to see patient and is aware patient K is 3.2 and no protocol replacement was ordered but patient receiving 20meq KDur BID. Dr Morataya stated that was ok and no new ordered received.
--- NOTE | 2020-04-02 11:38 | NUR ---
Malnutrition Consult "etoh and poor PO": Pt admit DX possible choledocholithiasis hx poor PO 4 days CONNIE CLEANER. Hx etoh and meth abuse receiving banana bag at this time. Pt has normal strength, no edema/wounds, appears well-developed/well-nourished per ER note, and does not meet minimum malnutrition criteria at this time. To f/u 04/06 for initial assessment. Addendum: 04/02/20 at [address] Amended: Links added.
[2020-04-02 12:14] VITALS: BP 125/71
[2020-04-02 18:15] VITALS: BP 115/70
--- NOTE | 2020-04-02 18:26 | NUR ---
Problems reprioritized. Patient report given, questions answered & plan of care reviewed with VIKI Garcia.
--- NOTE | 2020-04-02 18:30 | NUR ---
Patient in room FRANNIE 347. I have received report from VIKI Ford and had the opportunity to ask questions and assume patient care.
[2020-04-02] MEDS: mirtazapine 15mg tablet PO SCH (20:45)
[2020-04-02] MEDS: olanzapine 10mg tablet PO SCH (20:45)
[2020-04-02] MEDS: gabapentin 300mg capsule PO SCH (20:45)
[2020-04-03 00:15] VITALS: BP 103/62
[2020-04-03] MEDS: dextrose 5%-1/2 normal saline 1,000 ML IV SCH (02:19)
[2020-04-03 05:03] LABS: BASOPHILS % (AUTO) 0.7 % (0-1); EOSINOPHILS # (AUTO) 0.1 X10'3 (0-0.9); EOSINOPHILS % (AUTO) 2.2 % (0-6); HEMATOCRIT 36.8 % (42.0-52.0); HEMOGLOBIN 12.5 g/dl (14.0-17.9); LYMPHOCYTES # (AUTO) 0.9 X10'3 (1.1-4.8); LYMPHOCYTES % (AUTO) 21.3 % (21-51); MEAN CORPUSCULAR HEMOGLOBIN 33.3 PG (27.0-31.0); MEAN CORPUSCULAR HGB CONC 34.1 g/dL (33.0-36.5); MEAN CORPUSCULAR VOLUME 97.5 FL (78-98); MEAN PLATELET VOLUME 8.6 FL (7.4-10.4); MONOCYTES # (AUTO) 0.5 X10'3 (0-0.9); MONOCYTES % (AUTO) 11.3 % (2-12); NEUTROPHILS # (AUTO) 2.7 X10'3 (1.8-7.7); NEUTROPHILS % (AUTO) 64.5 % (42-75); PLATELET COUNT 192 X10'3 (140-440); RED BLOOD COUNT 3.77 X10'6 (4.70-6.10); RED CELL DISTRIBUTION WIDTH 14.8 % (11.5-14.5); WHITE BLOOD COUNT 4.2 X10'3 (4.5-11.0)
[2020-04-03 05:22] LABS: ALANINE AMINOTRANSFERASE 28 U/L (12-78); ALBUMIN 2.6 G/DL (3.4-5.0); ALKALINE PHOSPHATASE 142 IU/L (46-116); ANION GAP 6 (8-16); ASPARTATE AMINO TRANSFERASE 26 U/L (10-37); BILIRUBIN,TOTAL 0.4 MG/DL (0.1-1.0); BLOOD UREA NITROGEN 4 MG/DL (7-18); BUN/CREATININE RATIO 4.9 (5.4-32.0); CHLORIDE 111 MMOL/L (99-107); CREATININE 0.82 MG/DL (0.60-1.10); GLUCOSE 115 MG/DL (70-104); POTASSIUM 3.8 MMOL/L (3.5-5.1); SODIUM 144 MMOL/L (135-145); TOTAL CARBON DIOXIDE 26.8 MMOL/L (24-32); TOTAL PROTEIN 5.2 G/DL (6.4-8.2); eGFR > 90 ML/MIN
--- NOTE | 2020-04-03 06:06 | NUR ---
Patient in room FRANNIE 347. I have received report from VIKI Garcia and had the opportunity to ask questions and assume patient care.
--- NOTE | 2020-04-03 06:10 | NUR ---
Problems reprioritized. Patient report given, questions answered & plan of care reviewed with VIKI Mendez.
[2020-04-03 07:17] VITALS: BP 99/58
[2020-04-03] MEDS: propranolol 40mg tablet PO SCH (07:47)
[2020-04-03] MEDS: naltrexone 50mg tablet PO SCH (07:47)
[2020-04-03] MEDS: potassium Cl 20 mEq SR tablet PO SCH (07:48)
[2020-04-03] MEDS: OLANZAPINE 5 MG TABLET PO SCH (07:48)
[2020-04-03] MEDS: FLUoxetine 20mg capsule PO SCH (07:48)
[2020-04-03] MEDS: pantoprazole 40mg Tablet.DR PO SCH (07:48)
[2020-04-03] MEDS: benztropine 1mg tablet PO SCH (07:48)
[2020-04-03] MEDS ORDERED: folic acid 1mg tablet PO SCH (08:00)
[2020-04-03] MEDS ORDERED: multivitamins, therapeutics tablet PO SCH (08:00)
[2020-04-03] MEDS ORDERED: thiamine 100mg tablet PO SCH (08:00)
[2020-04-03 11:00] VITALS: BP 147/70
--- NOTE | 2020-04-03 13:40 | NUR ---
Pt discharged to home with all belongings, transported via cab. Discharge instructions and medications reviewed. No new prescriptions ordered. Pt instructed to follow up with PCP in 1-2 weeks and to return to ED if symptoms return. IV DC'd, cannula intact. Pt escorted to front lobby by PCT. Pt stated understanding of discharge instructions and willingness to comply.
[2020-04-03] MEDS ORDERED: LORazepam 2 mg/ml vial IV PRN (21:40)
[2020-04-03] MEDS ORDERED: LORazepam 1 MG tablet PO PRN (21:40)
[2020-04-05] MEDS ORDERED: LORazepam 1 MG tablet PO PRN (21:40)
[2020-04-05] MEDS ORDERED: LORazepam 2 mg/ml vial IV PRN (21:40)
== END 2020-04-03 13:42 | disposition home or self-care (01) ==
LOC: ER 10:09 → ED HOLD 15:30 → SUR 3N 17:45
PROVIDERS: ADMIT Internal Medicine; ATTEND Internal Medicine
DX: K80.50 Calculus of bile duct without cholangitis or cholecystitis without obstruction (principal); E87.6 Hypokalemia; F15.10 Other stimulant abuse, uncomplicated; F31.9 Bipolar disorder, unspecified; Z53.20 Procedure and treatment not carried out because of patient's decision for unspecified reasons; F41.9 Anxiety disorder, unspecified; F10.20 Alcohol dependence, uncomplicated; Z28.21 Immunization not carried out because of patient refusal
CPT/HCPCS: 36415; 71045; 74160; 74181; 80053; 82948; 83690; 83735; 84484; 85025; 87081; 93005; 96365; 96372; 99285; G0378; J2060; J2270; J3411; J3480; J3490; J7030; J7060; Q9967

== ENCOUNTER 2020-04-08 19:29 | Emergency (ER) | payer MEDICAID ==
[~2020-04-08] VITALS: Ht 175.3 cm; Wt 175.0 kg
[~2020-04-08 19:29] MED LIST changes: +LORA-269 PO; -MULT-25 PO; +OLAN5TAB26 PO; -ONDA-103 PO; -thiamine tablet PO
[2020-04-08 19:35] VITALS: BP 135/101
[2020-04-08 20:15] LABS: BASOPHILS # (AUTO) 0.1 X10'3 (0-0.2); BASOPHILS % (AUTO) 0.6 % (0-1); EOSINOPHILS % (AUTO) 0.3 % (0-6); HEMATOCRIT 44.8 % (42.0-52.0); HEMOGLOBIN 15.5 g/dl (14.0-17.9); LYMPHOCYTES % (AUTO) 10.8 % (21-51); MEAN CORPUSCULAR HEMOGLOBIN 32.7 PG (27.0-31.0); MEAN CORPUSCULAR HGB CONC 34.5 g/dL (33.0-36.5); MEAN CORPUSCULAR VOLUME 94.7 FL (78-98); MEAN PLATELET VOLUME 7.9 FL (7.4-10.4); MONOCYTES # (AUTO) 1.1 X10'3 (0-0.9); MONOCYTES % (AUTO) 11.7 % (2-12); NEUTROPHILS % (AUTO) 76.6 % (42-75); PLATELET COUNT 347 X10'3 (140-440); RED BLOOD COUNT 4.73 X10'6 (4.70-6.10); RED CELL DISTRIBUTION WIDTH 14.4 % (11.5-14.5); WHITE BLOOD COUNT 9.1 X10'3 (4.5-11.0)
[2020-04-08 20:39] LABS: ALANINE AMINOTRANSFERASE 20 U/L (12-78); ALBUMIN 3.4 G/DL (3.4-5.0); ALKALINE PHOSPHATASE 136 IU/L (46-116); ANION GAP 11 (8-16); ASPARTATE AMINO TRANSFERASE 18 U/L (10-37); BILIRUBIN,TOTAL 0.9 MG/DL (0.1-1.0); BLOOD UREA NITROGEN 6 MG/DL (7-18); BUN/CREATININE RATIO 7.7 (5.4-32.0); CALCIUM 8.6 MG/DL (8.5-10.1); CHLORIDE 102 MMOL/L (99-107); CREATININE 0.78 MG/DL (0.60-1.10); GLUCOSE 133 MG/DL (70-104); SODIUM 141 MMOL/L (135-145); TOTAL CARBON DIOXIDE 28.4 MMOL/L (24-32); TOTAL PROTEIN 6.8 G/DL (6.4-8.2); eGFR > 90 ML/MIN
[2020-04-08] MEDS ORDERED: potassium Cl 20 mEq SR tablet PO ONE (22:00)
[2020-04-08] MEDS ORDERED: LORazepam 2 mg/ml vial IM ONE (22:10)
[2020-04-08 22:23] LABS: LIPASE 73 U/L (73-393)
== END 2020-04-08 22:51 | disposition home or self-care (01) ==
LOC: ER 19:30
DX: F41.9 Anxiety disorder, unspecified (principal); R42 Dizziness and giddiness; F31.9 Bipolar disorder, unspecified; F15.90 Other stimulant use, unspecified, uncomplicated; Z72.89 Other problems related to lifestyle; Z88.8 Allergy status to other drugs, medicaments and biological substances; Z79.899 Other long term (current) drug therapy
CPT/HCPCS: 36415; 71045; 80053; 83690; 83880; 84484; 85025; 93005; 96372; 99285; J2060

== ENCOUNTER 2020-04-11 07:41 | Emergency (ER) | payer MEDICAID ==
[~2020-04-11] VITALS: Ht 175.3 cm; Wt 78.3 kg
[2020-04-11] MEDS ORDERED: famotidine 20mg tablet PO ONE (08:30)
[2020-04-11] MEDS ORDERED: ondansetron 4mg rapidly disintigrating tab PO ONE (08:30)
[2020-04-11] MEDS ORDERED: mag hydrox/Alum hydrox/simeth 30ml oral suspension PO ONE (08:30)
[2020-04-11] MEDS ORDERED: aspirin 325mg tablet PO ONE (08:30)
[2020-04-11 08:34] LABS: BASOPHILS % (AUTO) 0.7 % (0-1); EOSINOPHILS # (AUTO) 0.1 X10'3 (0-0.9); EOSINOPHILS % (AUTO) 1.3 % (0-6); HEMATOCRIT 42.1 % (42.0-52.0); HEMOGLOBIN 14.5 g/dl (14.0-17.9); LYMPHOCYTES # (AUTO) 1.2 X10'3 (1.1-4.8); LYMPHOCYTES % (AUTO) 22.7 % (21-51); MEAN CORPUSCULAR HGB CONC 34.5 g/dL (33.0-36.5); MEAN CORPUSCULAR VOLUME 95.4 FL (78-98); MONOCYTES # (AUTO) 0.6 X10'3 (0-0.9); MONOCYTES % (AUTO) 11.4 % (2-12); NEUTROPHILS # (AUTO) 3.4 X10'3 (1.8-7.7); NEUTROPHILS % (AUTO) 63.9 % (42-75); PLATELET COUNT 308 X10'3 (140-440); RED BLOOD COUNT 4.41 X10'6 (4.70-6.10); RED CELL DISTRIBUTION WIDTH 14.3 % (11.5-14.5); WHITE BLOOD COUNT 5.4 X10'3 (4.5-11.0)
[2020-04-11 08:50] LABS: ALANINE AMINOTRANSFERASE 15 U/L (12-78); ALBUMIN/GLOBULIN RATIO 0.9 (1.1-1.5); ALKALINE PHOSPHATASE 118 IU/L (46-116); ANION GAP 13 (8-16); ASPARTATE AMINO TRANSFERASE 16 U/L (10-37); BILIRUBIN,TOTAL 0.4 MG/DL (0.1-1.0); BLOOD UREA NITROGEN 5 MG/DL (7-18); BUN/CREATININE RATIO 6.3 (5.4-32.0); CALCIUM 8.3 MG/DL (8.5-10.1); CHLORIDE 103 MMOL/L (99-107); GLUCOSE 155 MG/DL (70-104); POTASSIUM 3.1 MMOL/L (3.5-5.1); SODIUM 142 MMOL/L (135-145); TOTAL CARBON DIOXIDE 26.3 MMOL/L (24-32); TOTAL PROTEIN 6.3 G/DL (6.4-8.2); eGFR > 90 ML/MIN
[2020-04-11] MEDS ORDERED: PANT-47 PO (09:24)
[2020-04-11] MEDS ORDERED: ACET-812 PO (09:24)
[2020-04-11 09:36] VITALS: BP 106/62
== END 2020-04-11 09:41 | disposition home or self-care (01) ==
LOC: ER 07:43
DX: R07.89 Other chest pain (principal); R42 Dizziness and giddiness; R11.0 Nausea; F41.9 Anxiety disorder, unspecified; F31.9 Bipolar disorder, unspecified; F10.10 Alcohol abuse, uncomplicated; F15.90 Other stimulant use, unspecified, uncomplicated; Z88.8 Allergy status to other drugs, medicaments and biological substances; Z79.899 Other long term (current) drug therapy; Y90.9 Presence of alcohol in blood, level not specified
CPT/HCPCS: 36415; 71045; 80053; 83880; 84484; 85025; 93005; 99285

== ENCOUNTER 2020-04-13 21:32 | Inpatient (IN) | payer MEDICAID ==
[~2020-04-13] VITALS: Ht 175.3 cm; Wt 82.9 kg
[~2020-04-13 21:32] MED LIST changes: +ACET-812 PO; +PANT-47 PO
[2020-04-13] MEDS ORDERED: famotidine 20mg tablet PO ONE (21:50)
[2020-04-13] MEDS ORDERED: aspirin 325mg tablet PO ONE (21:50)
[2020-04-13] MEDS ORDERED: iohexol 350MG/ML 100ml bottle IV ONE (22:06)
[2020-04-13] MEDS ORDERED: heparin 10,000 units/1 ML INJ IV ONE ×2 (22:40→22:50)
[2020-04-13] MEDS ORDERED: heparin 10,000 units/1 ML INJ IV PRN (22:40)
[2020-04-13 22:57] LABS: HEMOGLOBIN 15.1 g/dl (14.0-17.9); WHITE BLOOD COUNT 8.3 X10'3 (4.5-11.0)
[2020-04-13 22:58] LABS: BASOPHILS % (AUTO) 0.3 % (0-1); EOSINOPHILS % (AUTO) 0.3 % (0-6); HEMATOCRIT 43.5 % (42.0-52.0); LYMPHOCYTES % (AUTO) 11.7 % (21-51); MEAN CORPUSCULAR HEMOGLOBIN 32.8 PG (27.0-31.0); MEAN CORPUSCULAR HGB CONC 34.6 g/dL (33.0-36.5); MEAN CORPUSCULAR VOLUME 94.7 FL (78-98); MEAN PLATELET VOLUME 8.1 FL (7.4-10.4); MONOCYTES # (AUTO) 0.8 X10'3 (0-0.9); MONOCYTES % (AUTO) 9.3 % (2-12); NEUTROPHILS # (AUTO) 6.5 X10'3 (1.8-7.7); NEUTROPHILS % (AUTO) 78.4 % (42-75); PLATELET COUNT 344 X10'3 (140-440); RED BLOOD COUNT 4.59 X10'6 (4.70-6.10); RED CELL DISTRIBUTION WIDTH 14.3 % (11.5-14.5)
[2020-04-13 23:03] LABS: ALANINE AMINOTRANSFERASE 20 U/L (12-78); ALBUMIN/GLOBULIN RATIO 0.9 (1.1-1.5); ALKALINE PHOSPHATASE 131 IU/L (46-116); ANION GAP 9 (8-16); ASPARTATE AMINO TRANSFERASE 23 U/L (10-37); BILIRUBIN,TOTAL 0.8 MG/DL (0.1-1.0); BLOOD UREA NITROGEN 5 MG/DL (7-18); BUN/CREATININE RATIO 5.7 (5.4-32.0); CALCIUM 8.4 MG/DL (8.5-10.1); CHLORIDE 99 MMOL/L (99-107); CREATININE 0.87 MG/DL (0.60-1.10); GLUCOSE 116 MG/DL (70-104); MAGNESIUM 1.8 MG/DL (1.5-2.4); SODIUM 137 MMOL/L (135-145); TOTAL PROTEIN 6.5 G/DL (6.4-8.2); eGFR > 90 ML/MIN
[2020-04-13 23:15] LABS: POTASSIUM 2.9 MMOL/L (3.5-5.1)
[2020-04-13] MEDS ORDERED: potassium Cl 10 mEq/100mL bag IV ONE (23:25)
[2020-04-13] MEDS ORDERED: potassium Cl 20 mEq SR tablet PO ONE (23:25)
[2020-04-13] MEDS: heparin 25,000 UNIT/250ml bag 250 ML IV SCH (23:31)
[2020-04-14] MEDS ORDERED: ketorolac trometh. 30mg/ml inj. IV ONE (00:45)
[2020-04-14 00:51] LABS: URINE AMPHETAMINE SCREEN POSITIVE (Neg); URINE BARBITUATE SCREEN NEGATIVE (Neg); URINE BENZODIAZEPINES SCREEN NEGATIVE (Neg); URINE CANNABINOID SCREEN NEGATIVE (Neg); URINE COCAINE SCREEN NEGATIVE (Neg); URINE METHADONE SCREEN NEGATIVE (Neg); URINE OPIATE SCREEN NEGATIVE (Neg); URINE PHENCYCLIDINE SCREEN NEGATIVE (Neg)
[2020-04-14] MEDS ORDERED: ondansetron/PF 4mg/2ml inj IV PRN (01:30)
[2020-04-14] MEDS ORDERED: mag hydrox/Alum hydrox/simeth 30ml oral suspension PO PRN (01:30)
[2020-04-14] MEDS ORDERED: potassium CL 10mEq/100ml bag 100 ML IV PRN ×2 (01:30)
[2020-04-14] MEDS ORDERED: morphine 2 MG/ML inj. syringe IV PRN (01:30)
[2020-04-14] MEDS ORDERED: magnesium hydroxide 30ml (MOM) UD suspension PO PRN (01:30)
[2020-04-14] MEDS ORDERED: acetaminophen 325mg tablet PO PRN (01:30)
[2020-04-14] MEDS ORDERED: potassium Cl 20 mEq SR tablet PO PRN (01:30)
[2020-04-14] MEDS ORDERED: PROP10TA10 PO ×2 (01:34→01:37)
[2020-04-14] MEDS ORDERED: LORazepam 2 mg/ml vial IV PRN (01:35)
--- NOTE | 2020-04-14 02:30 | NUR ---
Patient in room MED 314. I have received report from Jacki DREW and had the opportunity to ask questions and assume patient care.
[2020-04-14] MEDS: normal saline 1000ml 1,000 ML IV SCH ×2 (03:30→19:42)
[2020-04-14] MEDS: morphine 2 MG/ML inj. syringe IV PRN ×2 (03:55→08:58)
[2020-04-14] MEDS: LORazepam 1 MG tablet PO PRN ×2 (03:56→11:41)
[2020-04-14 05:46] VITALS: BP 127/88
[2020-04-14 06:00] VITALS: BP 134/80
[2020-04-14 06:15] LABS: BASOPHILS % (AUTO) 0.2 % (0-1); EOSINOPHILS % (AUTO) 0.8 % (0-6); HEMATOCRIT 40.9 % (42.0-52.0); HEMOGLOBIN 14.2 g/dl (14.0-17.9); LYMPHOCYTES # (AUTO) 1.4 X10'3 (1.1-4.8); LYMPHOCYTES % (AUTO) 22.5 % (21-51); MEAN CORPUSCULAR HEMOGLOBIN 33.4 PG (27.0-31.0); MEAN CORPUSCULAR HGB CONC 34.8 g/dL (33.0-36.5); MEAN CORPUSCULAR VOLUME 95.9 FL (78-98); MEAN PLATELET VOLUME 8.1 FL (7.4-10.4); MONOCYTES # (AUTO) 0.6 X10'3 (0-0.9); NEUTROPHILS # (AUTO) 4.2 X10'3 (1.8-7.7); NEUTROPHILS % (AUTO) 66.5 % (42-75); PLATELET COUNT 264 X10'3 (140-440); RED BLOOD COUNT 4.26 X10'6 (4.70-6.10); RED CELL DISTRIBUTION WIDTH 14.3 % (11.5-14.5); WHITE BLOOD COUNT 6.3 X10'3 (4.5-11.0)
--- NOTE | 2020-04-14 06:30 | NUR ---
Problems reprioritized. Patient report given, questions answered & plan of care reviewed with IJEOMA DREW.
[2020-04-14 06:52] LABS: ALANINE AMINOTRANSFERASE 15 U/L (12-78); ALBUMIN 2.6 G/DL (3.4-5.0); ALBUMIN/GLOBULIN RATIO 0.9 (1.1-1.5); ALKALINE PHOSPHATASE 115 IU/L (46-116); ANION GAP 12 (8-16); ASPARTATE AMINO TRANSFERASE 22 U/L (10-37); BILIRUBIN,TOTAL 0.6 MG/DL (0.1-1.0); BLOOD UREA NITROGEN 4 MG/DL (7-18); BUN/CREATININE RATIO 5.4 (5.4-32.0); CALCIUM 8.2 MG/DL (8.5-10.1); CHLORIDE 102 MMOL/L (99-107); CREATININE 0.74 MG/DL (0.60-1.10); GLUCOSE 93 MG/DL (70-104); POTASSIUM 3.2 MMOL/L (3.5-5.1); SODIUM 138 MMOL/L (135-145); TOTAL CARBON DIOXIDE 23.7 MMOL/L (24-32); TOTAL PROTEIN 5.6 G/DL (6.4-8.2); eGFR > 90 ML/MIN
--- NOTE | 2020-04-14 07:16 | NUR ---
Patient in room MED 314. I have received report from VIKI Osuna and had the opportunity to ask questions and assume patient care.
[2020-04-14] MEDS: K and/or MAG REPLACEMENT MC SCH ×2 (08:00→19:53)
[2020-04-14] MEDS: propranolol 10mg tablet PO SCH ×2 (08:56→19:48)
[2020-04-14] MEDS: OLANZAPINE 5 MG TABLET PO SCH (08:57)
[2020-04-14] MEDS: thiamine 100mg tablet PO SCH (08:57)
[2020-04-14] MEDS: FLUoxetine 20mg capsule PO SCH (08:57)
[2020-04-14] MEDS: pantoprazole 40mg Tablet.DR PO SCH (08:57)
[2020-04-14] MEDS: potassium Cl 20 mEq SR tablet PO PRN ×3 (08:58→21:51)
[2020-04-14] MEDS: heparin 25,000 UNIT/250ml bag 250 ML IV SCH ×3 (09:06→23:38)
[2020-04-14 09:12] LABS: MAGNESIUM 1.5 MG/DL (1.5-2.4)
[2020-04-14 10:00] VITALS: BP 140/94
[2020-04-14 14:44] VITALS: BP 105/65
--- NOTE | 2020-04-14 14:53 | NUR ---
Pt is up at bedside wanting to go get something to drink. I explained that I needed to order what he needed. I ordered 2 sodas for this pt at 1450
--- NOTE | 2020-04-14 15:04 | NUR ---
PT TOOK OFF HIS LEADS AND FINGER 02. SO I MASKED HIM AND AMBULATED 2 LAPS
[2020-04-14 18:00] VITALS: BP 99/69
--- NOTE | 2020-04-14 18:30 | NUR ---
Problems reprioritized. Patient report given, questions answered & plan of care reviewed with VIKI Lopez.
--- NOTE | 2020-04-14 18:40 | NUR ---
Received report from VIKI Tamez. Patient is awake and alert on room air, in no apparent distress. Having meal. Call light and items of frequent reach within normal limits. Will continue to monitor.
[2020-04-14] MEDS ORDERED: mirtazapine 15mg tablet PO SCH (21:00)
[2020-04-14] MEDS ORDERED: olanzapine 10mg tablet PO SCH (21:00)
[2020-04-14 22:00] VITALS: BP 104/62
--- NOTE | 2020-04-14 23:40 | NUR ---
DVT PTT level came back therapeutic at 68. No rate change needed.
[2020-04-15 02:00] VITALS: BP 101/56
--- NOTE | 2020-04-15 05:38 | NUR ---
2 RNS attempted to draw timed DVT PTT on patient, but unsuccessful. Will await for lab to draw blood along with AM labs.
[2020-04-15 06:00] VITALS: BP 92/53
[2020-04-15 06:14] LABS: BASOPHILS % (AUTO) 0.7 % (0-1); EOSINOPHILS # (AUTO) 0.1 X10'3 (0-0.9); EOSINOPHILS % (AUTO) 4.2 % (0-6); HEMATOCRIT 37.8 % (42.0-52.0); LYMPHOCYTES # (AUTO) 0.9 X10'3 (1.1-4.8); LYMPHOCYTES % (AUTO) 28.2 % (21-51); MEAN CORPUSCULAR HEMOGLOBIN 33.4 PG (27.0-31.0); MEAN CORPUSCULAR HGB CONC 34.5 g/dL (33.0-36.5); MEAN CORPUSCULAR VOLUME 96.8 FL (78-98); MEAN PLATELET VOLUME 7.7 FL (7.4-10.4); MONOCYTES # (AUTO) 0.3 X10'3 (0-0.9); MONOCYTES % (AUTO) 10.3 % (2-12); NEUTROPHILS # (AUTO) 1.7 X10'3 (1.8-7.7); NEUTROPHILS % (AUTO) 56.6 % (42-75); PLATELET COUNT 178 X10'3 (140-440); RED CELL DISTRIBUTION WIDTH 14.4 % (11.5-14.5); WHITE BLOOD COUNT 3.1 X10'3 (4.5-11.0)
--- NOTE | 2020-04-15 06:21 | NUR ---
Problems reprioritized. Patient report given, questions answered & plan of care reviewed with VIKI Biswas.
[2020-04-15 06:37] LABS: ALANINE AMINOTRANSFERASE 17 U/L (12-78); ALBUMIN 2.5 G/DL (3.4-5.0); ALBUMIN/GLOBULIN RATIO 0.8 (1.1-1.5); ALKALINE PHOSPHATASE 103 IU/L (46-116); ANION GAP 7 (8-16); ASPARTATE AMINO TRANSFERASE 16 U/L (10-37); BILIRUBIN,TOTAL 0.5 MG/DL (0.1-1.0); BLOOD UREA NITROGEN 8 MG/DL (7-18); BUN/CREATININE RATIO 10.8 (5.4-32.0); CALCIUM 8.7 MG/DL (8.5-10.1); CHLORIDE 113 MMOL/L (99-107); CREATININE 0.74 MG/DL (0.60-1.10); GLUCOSE 103 MG/DL (70-104); LIPASE 94 U/L (73-393); POTASSIUM 4.4 MMOL/L (3.5-5.1); SODIUM 146 MMOL/L (135-145); TOTAL CARBON DIOXIDE 26.2 MMOL/L (24-32); TOTAL PROTEIN 5.5 G/DL (6.4-8.2); eGFR > 90 ML/MIN
--- NOTE | 2020-04-15 06:42 | NUR ---
Patient in room MED 314. I have received report from Jessica DREW and had the opportunity to ask questions and assume patient care.
[2020-04-15] MEDS: K and/or MAG REPLACEMENT MC SCH (08:00)
[2020-04-15] MEDS: FLUoxetine 20mg capsule PO SCH (08:39)
[2020-04-15] MEDS: thiamine 100mg tablet PO SCH (08:40)
[2020-04-15] MEDS: OLANZAPINE 5 MG TABLET PO SCH (08:40)
[2020-04-15] MEDS: pantoprazole 40mg Tablet.DR PO SCH (08:40)
[2020-04-15] MEDS: propranolol 10mg tablet PO SCH (08:45)
[2020-04-15 08:46] VITALS: BP 147/90
[2020-04-15] MEDS: morphine 2 MG/ML inj. syringe IV PRN (09:02)
--- NOTE | 2020-04-15 09:49 | NUR ---
received orders to stop heparin and to give eliquis 10 mg x1 now per dr russell
[2020-04-15] MEDS ORDERED: apixaban 5mg tablet PO ONE (09:50)
[2020-04-15] MEDS ORDERED: FLU VACC QS2020-21(6MOS UP)/PF 60 MCG/0.5 ML SYRINGE IMVAC ONE (10:00)
[2020-04-15] MEDS: LORazepam 1 MG tablet PO PRN (10:02)
[2020-04-15 11:00] VITALS: BP 95/58
[2020-04-15 11:59] LABS: CARCINOEMBRYONIC ANTIGEN 2.8 ng/mL (0.0-4.7)
[2020-04-15] MEDS ORDERED: APIX5TAB3 PO (13:18)
--- NOTE | 2020-04-15 14:09 | NUR ---
PAGER ID: [phone] MESSAGE: Jamshid Marisela, Mario: Spoke w/ pharmacy, they received a prescription for eliquis 10 mg BID x 7 days then eliquis 5 mg BID x 7 days. On discharge orders it says eliquis 5 mg BID x 30 days. Which order do you want? thanks justino [phone]
--- NOTE | 2020-04-15 15:27 | NUR ---
pt is stable for discharge per md orders, discharge instructions reviewed w/ pt and all questions answered, new med prescriptions faxed to [facility], [facility] dc'ed intact, clean dressing applied, pt discharges to home @ 1525, pt refused a ride and prefers to walk home and states he lives close by, pt ambulates independently, all belongings w/ pt at time of discharge.
== END 2020-04-15 16:55 | disposition home or self-care (01) | DRG 134 ==
LOC: ER 21:32 → ED HOLD 04-14 01:29 → MED 3N 04-14 03:00
PROVIDERS: ADMIT Internal Medicine; ATTEND Family Medicine
PROC: B32T1ZZ Computerized Tomography (CT Scan) of Left Pulmonary Artery using Low Osmolar Contrast (ICD-10-PCS; 2020-04-13)
PROC: B3201ZZ Computerized Tomography (CT Scan) of Thoracic Aorta using Low Osmolar Contrast (ICD-10-PCS; 2020-04-13)
PROC: B32S1ZZ Computerized Tomography (CT Scan) of Right Pulmonary Artery using Low Osmolar Contrast (ICD-10-PCS; 2020-04-13)
PROC: 3E02340 Introduction of Influenza Vaccine into Muscle, Percutaneous Approach (ICD-10-PCS; principal; 2020-04-15)
DX: I26.99 Other pulmonary embolism without acute cor pulmonale (principal); F15.90 Other stimulant use, unspecified, uncomplicated; F31.9 Bipolar disorder, unspecified; G89.4 Chronic pain syndrome; Z20.828 Contact with and (suspected) exposure to other viral communicable diseases; E87.6 Hypokalemia; F10.20 Alcohol dependence, uncomplicated; F29 Unspecified psychosis not due to a substance or known physiological condition; F41.9 Anxiety disorder, unspecified; Z23 Encounter for immunization; Z88.8 Allergy status to other drugs, medicaments and biological substances; Z79.899 Other long term (current) drug therapy; Z71.51 Drug abuse counseling and surveillance of drug abuser
CPT/HCPCS: 36415; 71045; 71275; 80053; 80305; 82378; 83690; 83735; 83880; 84484; 85025; 85610; 85730; 86301; 87081; 87635; 93005; 96374; 99285; C9803; G0378; J1644; J1885; J2270; J3480; J7030; Q2039; Q9967

== ENCOUNTER 2020-04-20 21:29 | Emergency (ER) | payer MEDICAID ==
[~2020-04-20] VITALS: Ht 175.3 cm; Wt 81.8 kg
[~2020-04-20 21:29] MED LIST changes: -ACET-812 PO; +APIX5TAB3 PO; -BENZ1TAB7 PO; -GABA300C PO; -LORA-269 PO; -PANT20TA2 PO; -POTA-82 PO; +PROP10TA10 PO; -PROP20TA6 PO
[2020-04-20 22:33] LABS: BASOPHILS % (AUTO) 0.5 % (0-1); MEAN CORPUSCULAR VOLUME 94.6 FL (78-98); MONOCYTES # (AUTO) 0.8 X10'3 (0-0.9)
[2020-04-20 22:35] LABS: EOSINOPHILS % (AUTO) 0.4 % (0-6); HEMATOCRIT 46.7 % (42.0-52.0); HEMOGLOBIN 16.4 g/dl (14.0-17.9); LYMPHOCYTES % (AUTO) 14.4 % (21-51); MEAN CORPUSCULAR HEMOGLOBIN 33.2 PG (27.0-31.0); MEAN CORPUSCULAR HGB CONC 35.1 g/dL (33.0-36.5); MEAN PLATELET VOLUME 7.9 FL (7.4-10.4); MONOCYTES % (AUTO) 11.2 % (2-12); NEUTROPHILS % (AUTO) 73.5 % (42-75); PLATELET COUNT 359 X10'3 (140-440); RED BLOOD COUNT 4.94 X10'6 (4.70-6.10); RED CELL DISTRIBUTION WIDTH 14.4 % (11.5-14.5); WHITE BLOOD COUNT 6.8 X10'3 (4.5-11.0)
[2020-04-20 22:45] LABS: ALANINE AMINOTRANSFERASE 21 U/L (12-78); ALBUMIN 3.7 G/DL (3.4-5.0); ALBUMIN/GLOBULIN RATIO 0.9 (1.1-1.5); ALKALINE PHOSPHATASE 119 IU/L (46-116); ANION GAP 16 (8-16); ASPARTATE AMINO TRANSFERASE 25 U/L (10-37); BILIRUBIN,TOTAL 1.4 MG/DL (0.1-1.0); BLOOD UREA NITROGEN 11 MG/DL (7-18); BUN/CREATININE RATIO 8.4 (5.4-32.0); CALCIUM 9.4 MG/DL (8.5-10.1); CHLORIDE 98 MMOL/L (99-107); CREATININE 1.31 MG/DL (0.60-1.10); GLUCOSE 102 MG/DL (70-104); POTASSIUM 3.6 MMOL/L (3.5-5.1); SODIUM 136 MMOL/L (135-145); TOTAL CARBON DIOXIDE 21.8 MMOL/L (24-32); TOTAL PROTEIN 7.6 G/DL (6.4-8.2); eGFR 58 ML/MIN
[2020-04-20] MEDS ORDERED: aspirin 325mg tablet PO ONE (23:05)
[2020-04-20] MEDS ORDERED: chlordiazePOXIDE 25mg capsule PO ONE (23:05)
[2020-04-20 23:21] LABS: ETHANOL < 0.010 GM/DL (0.0-0.010)
[2020-04-20 23:24] LABS: D-DIMER 0.27 MG/L FEU (0-0.50); PARTIAL THROMBOPLASTIN TIME 31 SECONDS (22-32)
[2020-04-20] MEDS ORDERED: quetiapine 100mg tablet PO SCH (23:26)
[2020-04-20] MEDS ORDERED: QUEtiapine 25mg tablet PO SCH (23:27)
--- NOTE | 2020-04-21 00:28 | NUR ---
Pt yelling profanity loudly calling for nurse and doctor to come. Pt starts calling as soon as nurse and Addendum: 04/21/20 at 0029 by ANTONIO as soon as nurse leaves room pt starts yelling profanities
[2020-04-21 00:45] LABS: URINE AMPHETAMINE SCREEN POSITIVE (Neg); URINE BARBITUATE SCREEN NEGATIVE (Neg); URINE BENZODIAZEPINES SCREEN NEGATIVE (Neg); URINE CANNABINOID SCREEN NEGATIVE (Neg); URINE COCAINE SCREEN NEGATIVE (Neg); URINE METHADONE SCREEN NEGATIVE (Neg); URINE OPIATE SCREEN NEGATIVE (Neg); URINE PHENCYCLIDINE SCREEN NEGATIVE (Neg)
[2020-04-21] MEDS ORDERED: QUEtiapine 25mg tablet PO ONE (00:55)
[2020-04-21] MEDS ORDERED: chlordiazePOXIDE 25mg capsule PO ONE (00:55)
[2020-04-21] MEDS ORDERED: OLANZapine 5mg rapidly disint. tablet PO ONE (00:55)
[2020-04-21 01:18] VITALS: BP 135/94
== END 2020-04-21 01:20 | disposition home or self-care (01) ==
LOC: ER 21:29
DX: F41.9 Anxiety disorder, unspecified (principal); R42 Dizziness and giddiness; F15.10 Other stimulant abuse, uncomplicated; F29 Unspecified psychosis not due to a substance or known physiological condition; Z87.19 Personal history of other diseases of the digestive system; Z79.899 Other long term (current) drug therapy
CPT/HCPCS: 36415; 71045; 80053; 80305; 80320; 83880; 84484; 85025; 85379; 85610; 85730; 93005; 99285

== ENCOUNTER 2020-05-11 06:31 | Emergency (ER) | payer MEDICAID ==
[~2020-05-11] VITALS: Ht 175.3 cm; Wt 79.5 kg
[2020-05-11] MEDS ORDERED: acetaminophen 325mg tablet PO ONE (06:55)
[2020-05-11] MEDS ORDERED: ketorolac tromethamine 15mg/ml inj. IV ONE (06:55)
[2020-05-11 07:14] LABS: BASOPHILS # (AUTO) 0.1 X10'3 (0-0.2); BASOPHILS % (AUTO) 1.2 % (0-1); EOSINOPHILS % (AUTO) 0.3 % (0-6); HEMATOCRIT 46.6 % (42.0-52.0); HEMOGLOBIN 16.3 g/dl (14.0-17.9); LYMPHOCYTES # (AUTO) 1.3 X10'3 (1.1-4.8); LYMPHOCYTES % (AUTO) 27.2 % (21-51); MEAN CORPUSCULAR HEMOGLOBIN 33.1 PG (27.0-31.0); MEAN CORPUSCULAR VOLUME 94.5 FL (78-98); MEAN PLATELET VOLUME 7.1 FL (7.4-10.4); MONOCYTES # (AUTO) 0.5 X10'3 (0-0.9); MONOCYTES % (AUTO) 10.1 % (2-12); NEUTROPHILS # (AUTO) 2.9 X10'3 (1.8-7.7); NEUTROPHILS % (AUTO) 61.2 % (42-75); PLATELET COUNT 486 X10'3 (140-440); RED BLOOD COUNT 4.93 X10'6 (4.70-6.10); RED CELL DISTRIBUTION WIDTH 13.8 % (11.5-14.5); WHITE BLOOD COUNT 4.8 X10'3 (4.5-11.0)
[2020-05-11 07:41] LABS: ALANINE AMINOTRANSFERASE 17 U/L (12-78); ALBUMIN/GLOBULIN RATIO 0.9 (1.1-1.5); ALKALINE PHOSPHATASE 93 IU/L (46-116); ANION GAP 6 (8-16); ASPARTATE AMINO TRANSFERASE 19 U/L (10-37); BILIRUBIN,TOTAL 0.4 MG/DL (0.1-1.0); BLOOD UREA NITROGEN 3 MG/DL (7-18); BUN/CREATININE RATIO 3.2 (5.4-32.0); CALCIUM 8.7 MG/DL (8.5-10.1); CHLORIDE 102 MMOL/L (99-107); CREATININE 0.93 MG/DL (0.60-1.10); GLUCOSE 151 MG/DL (70-104); LIPASE 98 U/L (73-393); SODIUM 140 MMOL/L (135-145); TOTAL CARBON DIOXIDE 31.8 MMOL/L (24-32); TOTAL PROTEIN 6.5 G/DL (6.4-8.2); TROPONIN I < 0.04 NG/ML (0.0-0.05); eGFR 86 ML/MIN
[2020-05-11 07:43] LABS: POTASSIUM 2.9 MMOL/L (3.5-5.1)
[2020-05-11] MEDS ORDERED: potassium Cl 20 mEq SR tablet PO STA (07:44)
[2020-05-11] MEDS ORDERED: magnesium oxide 400mg tablet PO ONE (07:45)
--- NOTE | 2020-05-11 08:14 | NUR ---
PT GAIT TESTED, AMBULATED FROM HIS ROOM TO THE BATHROOM AND BACK WITH TECH STANDING BY. PT GIVEN WATER AND WAS ABLE TO TAKE SEVERAL SIPS WITHOUT DIFFICULTY. PT C/O BEING WEAK AND UNABLE TO WALK. DR PRUITT NOTIFIED, PT IS UP FOR DC.
[2020-05-11 08:18] VITALS: BP 150/71
--- NOTE | 2020-05-11 08:33 | NUR ---
PT swallowed pills and drank cup of water. IV silas'd.
== END 2020-05-11 08:41 | disposition home or self-care (01) ==
LOC: ER 06:31
DX: R07.89 Other chest pain (principal); E87.6 Hypokalemia; R11.2 Nausea with vomiting, unspecified; R06.02 Shortness of breath; F41.9 Anxiety disorder, unspecified; F31.9 Bipolar disorder, unspecified; F17.200 Nicotine dependence, unspecified, uncomplicated; Z86.711 Personal history of pulmonary embolism; Z72.89 Other problems related to lifestyle; Z79.899 Other long term (current) drug therapy
CPT/HCPCS: 36415; 71045; 80053; 83690; 83880; 84484; 85025; 93005; 96374; 99285; J1885

== ENCOUNTER 2020-06-07 07:58 | Emergency (ER) | payer MEDICAID ==
[~2020-06-07] VITALS: Ht 175.3 cm; Wt 75.0 kg
[2020-06-07] MEDS ORDERED: LORazepam 2 mg/ml vial IV ONE (08:20)
--- NOTE | 2020-06-07 08:51 | NUR ---
PT FEELING BETTER AFTER RECEIVING THE ATIVAN
[2020-06-07 08:53] LABS: BASOPHILS % (AUTO) 0.8 % (0-1); EOSINOPHILS % (AUTO) 0.7 % (0-6); HEMATOCRIT 42.8 % (42.0-52.0); HEMOGLOBIN 14.8 g/dl (14.0-17.9); LYMPHOCYTES # (AUTO) 0.9 X10'3 (1.1-4.8); LYMPHOCYTES % (AUTO) 21.7 % (21-51); MEAN CORPUSCULAR HGB CONC 34.6 g/dL (33.0-36.5); MEAN CORPUSCULAR VOLUME 95.4 FL (78-98); MEAN PLATELET VOLUME 7.9 FL (7.4-10.4); MONOCYTES # (AUTO) 0.5 X10'3 (0-0.9); MONOCYTES % (AUTO) 12.9 % (2-12); NEUTROPHILS # (AUTO) 2.6 X10'3 (1.8-7.7); NEUTROPHILS % (AUTO) 63.9 % (42-75); PLATELET COUNT 305 X10'3 (140-440); RED BLOOD COUNT 4.49 X10'6 (4.70-6.10); RED CELL DISTRIBUTION WIDTH 14.4 % (11.5-14.5); WHITE BLOOD COUNT 4.1 X10'3 (4.5-11.0)
[2020-06-07 09:11] LABS: ALANINE AMINOTRANSFERASE 19 U/L (12-78); ALBUMIN 2.9 G/DL (3.4-5.0); ALKALINE PHOSPHATASE 76 IU/L (46-116); ANION GAP 12 (8-16); ASPARTATE AMINO TRANSFERASE 21 U/L (10-37); BILIRUBIN,TOTAL 0.4 MG/DL (0.1-1.0); BLOOD UREA NITROGEN 3 MG/DL (7-18); BUN/CREATININE RATIO 3.5 (5.4-32.0); CALCIUM 8.1 MG/DL (8.5-10.1); CHLORIDE 100 MMOL/L (99-107); CREATININE 0.86 MG/DL (0.60-1.10); GLUCOSE 127 MG/DL (70-104); SODIUM 140 MMOL/L (135-145); TOTAL CARBON DIOXIDE 27.8 MMOL/L (24-32); TOTAL PROTEIN 5.9 G/DL (6.4-8.2); eGFR > 90 ML/MIN
[2020-06-07 09:13] LABS: POTASSIUM 2.8 MMOL/L (3.5-5.1)
[2020-06-07] MEDS ORDERED: potassium chloride 10mEq ER tablet PO SCH (09:20)
[2020-06-07] MEDS ORDERED: potassium chloride 10mEq ER tablet PO ONE (09:20)
--- NOTE | 2020-06-07 09:55 | NUR ---
PT UP TO BATHROOM TO VOID. STATES HE IS FEELING SO MUCH BETTER, CHEST PAIN IS 2/10. NOW HE IS HUNGRY.
[2020-06-07 10:40] VITALS: BP 135/96
== END 2020-06-07 10:44 | disposition home or self-care (01) ==
LOC: ER 07:58
DX: F15.10 Other stimulant abuse, uncomplicated (principal); R07.89 Other chest pain; Z86.711 Personal history of pulmonary embolism; Z72.89 Other problems related to lifestyle; Z88.8 Allergy status to other drugs, medicaments and biological substances; Z79.899 Other long term (current) drug therapy
CPT/HCPCS: 36415; 71045; 80053; 84484; 85025; 93005; 96374; 99285; J2060

== ENCOUNTER 2020-06-10 13:31 | Emergency (ER) | payer MEDICAID ==
[~2020-06-10] VITALS: Ht 175.3 cm; Wt 74.8 kg
[2020-06-10 14:24] LABS: BASOPHILS % (AUTO) 0.7 % (0-1); EOSINOPHILS % (AUTO) 1.2 % (0-6); HEMOGLOBIN 15.4 g/dl (14.0-17.9); LYMPHOCYTES # (AUTO) 1.1 X10'3 (1.1-4.8); MEAN CORPUSCULAR HEMOGLOBIN 33.2 PG (27.0-31.0); MEAN CORPUSCULAR HGB CONC 34.2 g/dL (33.0-36.5); MEAN CORPUSCULAR VOLUME 96.9 FL (78-98); MEAN PLATELET VOLUME 7.6 FL (7.4-10.4); MONOCYTES # (AUTO) 0.4 X10'3 (0-0.9); MONOCYTES % (AUTO) 10.3 % (2-12); NEUTROPHILS # (AUTO) 2.2 X10'3 (1.8-7.7); NEUTROPHILS % (AUTO) 58.8 % (42-75); PLATELET COUNT 333 X10'3 (140-440); RED BLOOD COUNT 4.65 X10'6 (4.70-6.10); WHITE BLOOD COUNT 3.7 X10'3 (4.5-11.0)
[2020-06-10 14:45] LABS: ALANINE AMINOTRANSFERASE 27 U/L (12-78); ALBUMIN 3.3 G/DL (3.4-5.0); ALBUMIN/GLOBULIN RATIO 0.9 (1.1-1.5); ALKALINE PHOSPHATASE 90 IU/L (46-116); ANION GAP 7 (8-16); ASPARTATE AMINO TRANSFERASE 35 U/L (10-37); BILIRUBIN,TOTAL 0.6 MG/DL (0.1-1.0); BLOOD UREA NITROGEN 7 MG/DL (7-18); BUN/CREATININE RATIO 6.9 (5.4-32.0); CALCIUM 8.4 MG/DL (8.5-10.1); CHLORIDE 100 MMOL/L (99-107); CREATININE 1.02 MG/DL (0.60-1.10); GLUCOSE 143 MG/DL (70-104); POTASSIUM 3.2 MMOL/L (3.5-5.1); SODIUM 138 MMOL/L (135-145); eGFR 78 ML/MIN
[2020-06-10] MEDS ORDERED: normal saline 1000ML IV soln IVB ONE (17:05)
[2020-06-10] MEDS ORDERED: ondansetron/PF 4mg/2ml inj IV ONE (17:05)
[2020-06-10] MEDS ORDERED: LORazepam 2 mg/ml vial IV ONE (17:05)
[2020-06-10 18:42] VITALS: BP 97/59
== END 2020-06-10 18:46 | disposition home or self-care (01) ==
LOC: ER 13:32
DX: R07.89 Other chest pain (principal); F10.10 Alcohol abuse, uncomplicated; F15.10 Other stimulant abuse, uncomplicated; Z86.711 Personal history of pulmonary embolism; Z88.8 Allergy status to other drugs, medicaments and biological substances; Z79.899 Other long term (current) drug therapy; Y90.9 Presence of alcohol in blood, level not specified
CPT/HCPCS: 36415; 71045; 80053; 83880; 84484; 85025; 93005; 96361; 96374; 96375; 99285; J2060; J2405; J7030

== ENCOUNTER 2020-06-16 13:12 | Emergency (ER) | payer MEDICAID ==
[~2020-06-16] VITALS: Ht 175.3 cm; Wt 76.5 kg
[2020-06-16 13:49] VITALS: BP 103/68
--- NOTE | 2020-06-16 14:09 | NUR ---
ORDERS CANCELLED, PER PROVIDER
== END 2020-06-16 14:51 | disposition home or self-care (01) ==
LOC: ER 13:12
DX: F15.10 Other stimulant abuse, uncomplicated (principal); M62.838 Other muscle spasm; F10.10 Alcohol abuse, uncomplicated; Z88.8 Allergy status to other drugs, medicaments and biological substances; Z79.899 Other long term (current) drug therapy; Z86.711 Personal history of pulmonary embolism; Y90.9 Presence of alcohol in blood, level not specified
CPT/HCPCS: 93005; 99283

== ENCOUNTER 2020-08-05 17:32 | Emergency (ER) | payer MEDICAID ==
[~2020-08-05] VITALS: Ht 175.3 cm; Wt 81.1 kg
[2020-08-05] MEDS ORDERED: aspirin 325mg tablet PO ONE (18:05)
[2020-08-05 18:22] LABS: BASOPHILS % (AUTO) 0.9 % (0-1); EOSINOPHILS # (AUTO) 0.1 X10'3 (0-0.9); EOSINOPHILS % (AUTO) 2.8 % (0-6); HEMATOCRIT 40.6 % (42.0-52.0); HEMOGLOBIN 13.9 g/dl (14.0-17.9); LYMPHOCYTES % (AUTO) 27.3 % (21-51); MEAN CORPUSCULAR HEMOGLOBIN 34.3 PG (27.0-31.0); MEAN CORPUSCULAR HGB CONC 34.2 g/dL (33.0-36.5); MEAN CORPUSCULAR VOLUME 100.3 FL (78-98); MEAN PLATELET VOLUME 7.9 FL (7.4-10.4); MONOCYTES # (AUTO) 0.5 X10'3 (0-0.9); MONOCYTES % (AUTO) 15.1 % (2-12); NEUTROPHILS # (AUTO) 1.9 X10'3 (1.8-7.7); NEUTROPHILS % (AUTO) 53.9 % (42-75); PLATELET COUNT 253 X10'3 (140-440); RED BLOOD COUNT 4.05 X10'6 (4.70-6.10); WHITE BLOOD COUNT 3.5 X10'3 (4.5-11.0)
[2020-08-05 18:35] LABS: ALANINE AMINOTRANSFERASE 29 U/L (12-78); ALBUMIN 3.2 G/DL (3.4-5.0); ALKALINE PHOSPHATASE 64 IU/L (46-116); ANION GAP 16 (8-16); ASPARTATE AMINO TRANSFERASE 22 U/L (10-37); BILIRUBIN,TOTAL 0.3 MG/DL (0.1-1.0); BLOOD UREA NITROGEN 7 MG/DL (7-18); BUN/CREATININE RATIO 8.9 (5.4-32.0); CALCIUM 8.4 MG/DL (8.5-10.1); CHLORIDE 100 MMOL/L (99-107); CREATININE 0.79 MG/DL (0.60-1.10); GLUCOSE 135 MG/DL (70-104); POTASSIUM 3.2 MMOL/L (3.5-5.1); SODIUM 140 MMOL/L (135-145); TOTAL CARBON DIOXIDE 24.5 MMOL/L (24-32); TOTAL PROTEIN 6.4 G/DL (6.4-8.2); eGFR > 90 ML/MIN
[2020-08-05 18:54] VITALS: BP 126/85
== END 2020-08-05 18:57 | disposition home or self-care (01) ==
LOC: ER 17:32
DX: R07.89 Other chest pain (principal); R06.02 Shortness of breath; F41.9 Anxiety disorder, unspecified; F31.9 Bipolar disorder, unspecified; Z86.711 Personal history of pulmonary embolism; Z72.89 Other problems related to lifestyle; Z88.8 Allergy status to other drugs, medicaments and biological substances; Z79.899 Other long term (current) drug therapy
CPT/HCPCS: 36415; 71045; 80053; 83880; 84484; 85025; 93005; 99285

== ENCOUNTER 2020-08-07 10:56 | Emergency (ER) | payer MEDICAID ==
[~2020-08-07] VITALS: Ht 175.3 cm; Wt 80.0 kg
[2020-08-07] MEDS ORDERED: LORazepam 2 mg/ml vial IV ONE (11:35)
[2020-08-07] MEDS ORDERED: aspirin 81mg tab.chew PO ONE (11:35)
[2020-08-07 12:06] VITALS: BP 135/104
[2020-08-07 12:10] LABS: BASOPHILS % (AUTO) 0.8 % (0-1); EOSINOPHILS # (AUTO) 0.1 X10'3 (0-0.9); EOSINOPHILS % (AUTO) 1.1 % (0-6); HEMATOCRIT 41.4 % (42.0-52.0); HEMOGLOBIN 14.4 g/dl (14.0-17.9); LYMPHOCYTES # (AUTO) 0.9 X10'3 (1.1-4.8); MEAN CORPUSCULAR HEMOGLOBIN 35.1 PG (27.0-31.0); MEAN CORPUSCULAR HGB CONC 34.7 g/dL (33.0-36.5); MEAN CORPUSCULAR VOLUME 101.3 FL (78-98); MONOCYTES # (AUTO) 0.6 X10'3 (0-0.9); MONOCYTES % (AUTO) 12.1 % (2-12); NEUTROPHILS # (AUTO) 3.2 X10'3 (1.8-7.7); PLATELET COUNT 263 X10'3 (140-440); RED BLOOD COUNT 4.09 X10'6 (4.70-6.10); RED CELL DISTRIBUTION WIDTH 14.6 % (11.5-14.5); WHITE BLOOD COUNT 4.8 X10'3 (4.5-11.0)
[2020-08-07 12:24] LABS: D-DIMER < 0.19 MG/L FEU (0-0.50)
[2020-08-07 12:34] LABS: ALANINE AMINOTRANSFERASE 40 U/L (12-78); ALBUMIN 3.2 G/DL (3.4-5.0); ALKALINE PHOSPHATASE 69 IU/L (46-116); ANION GAP 15 (8-16); ASPARTATE AMINO TRANSFERASE 39 U/L (10-37); BILIRUBIN,TOTAL 0.4 MG/DL (0.1-1.0); BLOOD UREA NITROGEN 6 MG/DL (7-18); CALCIUM 8.7 MG/DL (8.5-10.1); CHLORIDE 98 MMOL/L (99-107); CREATININE 0.86 MG/DL (0.60-1.10); GLUCOSE 116 MG/DL (70-104); MAGNESIUM 2.1 MG/DL (1.5-2.4); SODIUM 139 MMOL/L (135-145); TOTAL CARBON DIOXIDE 25.6 MMOL/L (24-32); TOTAL PROTEIN 6.5 G/DL (6.4-8.2); eGFR > 90 ML/MIN
[2020-08-07] MEDS ORDERED: LORA-269 PO (14:16)
[2020-08-07] MEDS ORDERED: potassium chloride 8mEq ER tablet PO ONE (14:56)
== END 2020-08-07 15:15 | disposition home or self-care (01) ==
LOC: ER 10:56
DX: F41.0 Panic disorder [episodic paroxysmal anxiety] (principal); E87.6 Hypokalemia; R07.89 Other chest pain; F41.9 Anxiety disorder, unspecified; F31.9 Bipolar disorder, unspecified; Z86.711 Personal history of pulmonary embolism; Z72.89 Other problems related to lifestyle; Z88.8 Allergy status to other drugs, medicaments and biological substances; Z79.899 Other long term (current) drug therapy
CPT/HCPCS: 36415; 71045; 80053; 83735; 83880; 84484; 85025; 85379; 93005; 96374; 99285; J2060

== ENCOUNTER 2020-08-14 17:06 | Emergency (ER) | payer MEDICAID ==
[~2020-08-14] VITALS: Ht 175.3 cm; Wt 75.0 kg
[~2020-08-14 17:06] MED LIST changes: +LORA-269 PO
[2020-08-14 17:38] LABS: BASOPHILS # (AUTO) 0.1 X10'3 (0-0.2); EOSINOPHILS # (AUTO) 0.1 X10'3 (0-0.9); EOSINOPHILS % (AUTO) 1.5 % (0-6); HEMATOCRIT 40.8 % (42.0-52.0); HEMOGLOBIN 14.1 g/dl (14.0-17.9); LYMPHOCYTES # (AUTO) 1.3 X10'3 (1.1-4.8); LYMPHOCYTES % (AUTO) 22.8 % (21-51); MEAN CORPUSCULAR HEMOGLOBIN 35.2 PG (27.0-31.0); MEAN CORPUSCULAR HGB CONC 34.7 g/dL (33.0-36.5); MEAN CORPUSCULAR VOLUME 101.5 FL (78-98); MEAN PLATELET VOLUME 7.9 FL (7.4-10.4); MONOCYTES # (AUTO) 0.6 X10'3 (0-0.9); MONOCYTES % (AUTO) 10.2 % (2-12); NEUTROPHILS # (AUTO) 3.6 X10'3 (1.8-7.7); NEUTROPHILS % (AUTO) 64.5 % (42-75); PLATELET COUNT 293 X10'3 (140-440); RED BLOOD COUNT 4.02 X10'6 (4.70-6.10); RED CELL DISTRIBUTION WIDTH 14.5 % (11.5-14.5); WHITE BLOOD COUNT 5.7 X10'3 (4.5-11.0)
[2020-08-14 17:50] LABS: ALANINE AMINOTRANSFERASE 44 U/L (12-78); ALBUMIN 3.4 G/DL (3.4-5.0); ALKALINE PHOSPHATASE 73 IU/L (46-116); ANION GAP 15 (8-16); ASPARTATE AMINO TRANSFERASE 51 U/L (10-37); BILIRUBIN,TOTAL 0.4 MG/DL (0.1-1.0); BLOOD UREA NITROGEN 6 MG/DL (7-18); BUN/CREATININE RATIO 6.7 (5.4-32.0); CALCIUM 8.2 MG/DL (8.5-10.1); CHLORIDE 98 MMOL/L (99-107); GLUCOSE 136 MG/DL (70-104); POTASSIUM 3.4 MMOL/L (3.5-5.1); SODIUM 138 MMOL/L (135-145); TOTAL CARBON DIOXIDE 24.9 MMOL/L (24-32); TOTAL PROTEIN 6.7 G/DL (6.4-8.2); eGFR 89 ML/MIN
[2020-08-14] MEDS ORDERED: LORazepam 1 MG tablet PO ONE (18:15)
[2020-08-14 18:19] LABS: LIPASE 99 U/L (73-393); MAGNESIUM 2.3 MG/DL (1.5-2.4)
[2020-08-14 18:53] LABS: URINE AMPHETAMINE SCREEN POSITIVE (Neg); URINE BARBITUATE SCREEN NEGATIVE (Neg); URINE BENZODIAZEPINES SCREEN NEGATIVE (Neg); URINE CANNABINOID SCREEN NEGATIVE (Neg); URINE COCAINE SCREEN NEGATIVE (Neg); URINE METHADONE SCREEN NEGATIVE (Neg); URINE OPIATE SCREEN NEGATIVE (Neg); URINE PHENCYCLIDINE SCREEN NEGATIVE (Neg)
[2020-08-14] MEDS ORDERED: potassium Cl 20 mEq SR tablet PO ONE (19:05)
[2020-08-14 19:07] LABS: PARTIAL THROMBOPLASTIN TIME 26 SECONDS (22-32)
[2020-08-14 19:08] LABS: D-DIMER < 0.19 MG/L FEU (0-0.50)
[2020-08-14 20:04] VITALS: BP 110/81
--- NOTE | 2020-08-15 12:46 | NUR ---
Attempted to contact patient due to possible abnormal read on chest xray. Patient did not answer and voicemail was full. Dr. Britton and radiology feel that he needs to follow up with PCP and if unable he can come here for a repeat chest xray with nipple markers. Can be outpatient, none emergent.
== END 2020-08-14 20:06 | disposition home or self-care (01) ==
LOC: ER 17:06
DX: R07.89 Other chest pain (principal); F10.129 Alcohol abuse with intoxication, unspecified; F15.10 Other stimulant abuse, uncomplicated; F41.9 Anxiety disorder, unspecified; F31.9 Bipolar disorder, unspecified; Z86.711 Personal history of pulmonary embolism; Z72.89 Other problems related to lifestyle; Z88.8 Allergy status to other drugs, medicaments and biological substances; Z79.899 Other long term (current) drug therapy
CPT/HCPCS: 36415; 71045; 80053; 80305; 80320; 83690; 83735; 84484; 85025; 85379; 85610; 85730; 93005; 99285

== ENCOUNTER 2020-08-16 00:09 | Emergency (ER) | payer MEDICAID ==
[~2020-08-16] VITALS: Ht 175.3 cm; Wt 75.0 kg
[2020-08-16] MEDS ORDERED: aspirin 81mg tab.chew PO ONE ×2 (01:00→02:00)
[2020-08-16] MEDS ORDERED: LORazepam 1 MG tablet PO ONE (01:00)
[2020-08-16 02:05] LABS: BASOPHILS % (AUTO) 0 % (0-1); EOSINOPHILS # (AUTO) 0.2 X10'3 (0-0.9); EOSINOPHILS % (AUTO) 4.4 % (0-6); HEMATOCRIT 36.5 % (42.0-52.0); HEMOGLOBIN 12.8 g/dl (14.0-17.9); LYMPHOCYTES % (AUTO) 20.8 % (21-51); MEAN CORPUSCULAR HEMOGLOBIN 35.5 PG (27.0-31.0); MEAN CORPUSCULAR VOLUME 101.3 FL (78-98); MONOCYTES # (AUTO) 0.5 X10'3 (0-0.9); MONOCYTES % (AUTO) 10.3 % (2-12); NEUTROPHILS # (AUTO) 3.1 X10'3 (1.8-7.7); NEUTROPHILS % (AUTO) 64.5 % (42-75); PLATELET COUNT 282 X10'3 (140-440); RED CELL DISTRIBUTION WIDTH 14.5 % (11.5-14.5); WHITE BLOOD COUNT 4.8 X10'3 (4.5-11.0)
[2020-08-16 02:31] LABS: ALANINE AMINOTRANSFERASE 43 U/L (12-78); ALBUMIN 3.2 G/DL (3.4-5.0); ALKALINE PHOSPHATASE 68 IU/L (46-116); ANION GAP 10 (8-16); ASPARTATE AMINO TRANSFERASE 42 U/L (10-37); BILIRUBIN,TOTAL 0.3 MG/DL (0.1-1.0); BLOOD UREA NITROGEN 8 MG/DL (7-18); BUN/CREATININE RATIO 9.5 (5.4-32.0); CALCIUM 8.1 MG/DL (8.5-10.1); CHLORIDE 101 MMOL/L (99-107); CREATININE 0.84 MG/DL (0.60-1.10); GLUCOSE 120 MG/DL (70-104); POTASSIUM 3.4 MMOL/L (3.5-5.1); SODIUM 138 MMOL/L (135-145); TOTAL CARBON DIOXIDE 26.9 MMOL/L (24-32); TOTAL PROTEIN 6.3 G/DL (6.4-8.2); eGFR > 90 ML/MIN
[2020-08-16 03:34] VITALS: BP 102/63
== END 2020-08-16 03:37 | disposition home or self-care (01) ==
LOC: ER 00:10
DX: R07.89 Other chest pain (principal); F41.9 Anxiety disorder, unspecified; F31.9 Bipolar disorder, unspecified; F10.10 Alcohol abuse, uncomplicated; Z88.8 Allergy status to other drugs, medicaments and biological substances; Z79.01 Long term (current) use of anticoagulants; Z79.899 Other long term (current) drug therapy; Y90.9 Presence of alcohol in blood, level not specified
CPT/HCPCS: 36415; 71045; 80053; 84484; 85025; 93005; 99285

== ENCOUNTER 2020-08-19 00:45 | Emergency (ER) | payer MEDICAID ==
[~2020-08-19] VITALS: Ht 175.3 cm; Wt 75.0 kg
[2020-08-19 00:53] VITALS: BP 150/105
[2020-08-19] MEDS ORDERED: LORazepam 1 MG tablet PO ONE (00:55)
[2020-08-19] MEDS ORDERED: LORA-269 PO (01:45)
== END 2020-08-19 02:09 | disposition home or self-care (01) ==
LOC: ER 00:46
DX: F41.9 Anxiety disorder, unspecified (principal); R07.89 Other chest pain; R20.0 Anesthesia of skin; R00.2 Palpitations; F31.9 Bipolar disorder, unspecified; F15.90 Other stimulant use, unspecified, uncomplicated; F10.10 Alcohol abuse, uncomplicated; Z86.711 Personal history of pulmonary embolism; Z79.01 Long term (current) use of anticoagulants; Z79.899 Other long term (current) drug therapy; Y90.9 Presence of alcohol in blood, level not specified
CPT/HCPCS: 93005; 99283

== ENCOUNTER 2020-08-28 05:11 | Emergency (ER) | payer MEDICAID ==
[~2020-08-28] VITALS: Ht 175.3 cm; Wt 77.3 kg
[2020-08-28] MEDS ORDERED: LORazepam 0.5 MG tablet PO ONE (05:35)
[2020-08-28] MEDS ORDERED: propranolol LA 60 MG cap.SA.24H PO ONE (05:35)
[2020-08-28] MEDS ORDERED: PROP10TA10 PO (05:35)
[2020-08-28 05:44] VITALS: BP 140/104
== END 2020-08-28 05:51 | disposition home or self-care (01) ==
LOC: ER 05:11
DX: F41.9 Anxiety disorder, unspecified (principal); R42 Dizziness and giddiness; R06.02 Shortness of breath; I10 Essential (primary) hypertension; F31.9 Bipolar disorder, unspecified; F15.90 Other stimulant use, unspecified, uncomplicated; Z76.0 Encounter for issue of repeat prescription; Z72.89 Other problems related to lifestyle; Z86.711 Personal history of pulmonary embolism; Z88.8 Allergy status to other drugs, medicaments and biological substances; Z79.899 Other long term (current) drug therapy
CPT/HCPCS: 93005; 99283

== ENCOUNTER 2020-08-30 20:24 | Emergency (ER) | payer MEDICAID ==
[~2020-08-30] VITALS: Ht 175.3 cm; Wt 75.0 kg
--- NOTE | 2020-08-30 22:15 | NUR ---
Pt complains of many none corelating medical complaints unable to focus on his symptoms.
[2020-08-30 23:20] VITALS: BP 122/64
== END 2020-08-30 23:22 | disposition home or self-care (01) ==
LOC: ER 20:25
DX: F41.9 Anxiety disorder, unspecified (principal); I10 Essential (primary) hypertension; F31.9 Bipolar disorder, unspecified; F10.10 Alcohol abuse, uncomplicated; F15.90 Other stimulant use, unspecified, uncomplicated; Z86.711 Personal history of pulmonary embolism; Z88.8 Allergy status to other drugs, medicaments and biological substances; Z79.01 Long term (current) use of anticoagulants; Z79.899 Other long term (current) drug therapy; Y90.9 Presence of alcohol in blood, level not specified
CPT/HCPCS: 93005; 99283

== ENCOUNTER 2020-08-31 19:50 | Emergency (ER) | payer MEDICAID ==
[~2020-08-31] VITALS: Ht 175.3 cm; Wt 70.5 kg
[2020-08-31 20:09] VITALS: BP 141/109
[2020-08-31 20:48] LABS: BASOPHILS % (AUTO) 0.8 % (0-1); EOSINOPHILS % (AUTO) 1.1 % (0-6); HEMATOCRIT 39.2 % (42.0-52.0); HEMOGLOBIN 13.7 g/dl (14.0-17.9); LYMPHOCYTES # (AUTO) 0.8 X10'3 (1.1-4.8); LYMPHOCYTES % (AUTO) 23.7 % (21-51); MEAN CORPUSCULAR HEMOGLOBIN 35.5 PG (27.0-31.0); MEAN CORPUSCULAR HGB CONC 35.1 g/dL (33.0-36.5); MEAN CORPUSCULAR VOLUME 101.2 FL (78-98); MEAN PLATELET VOLUME 7.2 FL (7.4-10.4); MONOCYTES # (AUTO) 0.3 X10'3 (0-0.9); MONOCYTES % (AUTO) 8.9 % (2-12); NEUTROPHILS # (AUTO) 2.2 X10'3 (1.8-7.7); NEUTROPHILS % (AUTO) 65.5 % (42-75); PLATELET COUNT 339 X10'3 (140-440); RED BLOOD COUNT 3.87 X10'6 (4.70-6.10); RED CELL DISTRIBUTION WIDTH 15.1 % (11.5-14.5); WHITE BLOOD COUNT 3.3 X10'3 (4.5-11.0)
[2020-08-31 21:03] LABS: ALANINE AMINOTRANSFERASE 72 U/L (12-78); ALBUMIN 3.3 G/DL (3.4-5.0); ALKALINE PHOSPHATASE 90 IU/L (46-116); ANION GAP 9 (8-16); ASPARTATE AMINO TRANSFERASE 71 U/L (10-37); BILIRUBIN,TOTAL 0.5 MG/DL (0.1-1.0); BLOOD UREA NITROGEN 4 MG/DL (7-18); BUN/CREATININE RATIO 4.2 (5.4-32.0); CHLORIDE 101 MMOL/L (99-107); CREATININE 0.96 MG/DL (0.60-1.10); GLUCOSE 124 MG/DL (70-104); POTASSIUM 3.5 MMOL/L (3.5-5.1); SODIUM 141 MMOL/L (135-145); TOTAL CARBON DIOXIDE 30.6 MMOL/L (24-32); TOTAL PROTEIN 6.5 G/DL (6.4-8.2); eGFR 83 ML/MIN
[2020-08-31] MEDS ORDERED: LORazepam 1 MG tablet PO ONE (22:05)
== END 2020-08-31 22:22 | disposition home or self-care (01) ==
LOC: ER 19:50
DX: F41.9 Anxiety disorder, unspecified (principal); R07.89 Other chest pain; R00.2 Palpitations; R53.1 Weakness; I10 Essential (primary) hypertension; F31.9 Bipolar disorder, unspecified; F15.90 Other stimulant use, unspecified, uncomplicated; Z86.711 Personal history of pulmonary embolism; Z72.89 Other problems related to lifestyle; Z88.8 Allergy status to other drugs, medicaments and biological substances; Z79.899 Other long term (current) drug therapy
CPT/HCPCS: 36415; 71045; 80053; 83880; 84484; 85025; 93005; 99285

== ENCOUNTER 2020-09-05 03:48 | Emergency (ER) | payer MEDICAID ==
[~2020-09-05] VITALS: Ht 172.7 cm; Wt 76.0 kg
[2020-09-05 03:49] VITALS: BP 162/118
== END 2020-09-05 04:18 | disposition home or self-care (01) ==
LOC: ER 03:49
DX: F41.9 Anxiety disorder, unspecified (principal); I10 Essential (primary) hypertension; F31.9 Bipolar disorder, unspecified; F15.90 Other stimulant use, unspecified, uncomplicated; Z72.89 Other problems related to lifestyle; Z86.711 Personal history of pulmonary embolism; Z88.8 Allergy status to other drugs, medicaments and biological substances; Z79.899 Other long term (current) drug therapy
CPT/HCPCS: 93005; 99283

== ENCOUNTER 2020-10-05 16:21 | Emergency (ER) | payer MEDICAID ==
[~2020-10-05] VITALS: Ht 175.3 cm; Wt 75.0 kg
[2020-10-05] MEDS ORDERED: ONDA4TAB6 PO (17:09)
[2020-10-05 17:12] LABS: BASOPHILS % (AUTO) 0.3 % (0-1); EOSINOPHILS % (AUTO) 0.4 % (0-6); HEMATOCRIT 41.5 % (42.0-52.0); HEMOGLOBIN 14.7 g/dl (14.0-17.9); LYMPHOCYTES # (AUTO) 1.4 X10'3 (1.1-4.8); LYMPHOCYTES % (AUTO) 22.7 % (21-51); MEAN CORPUSCULAR HEMOGLOBIN 34.4 PG (27.0-31.0); MEAN CORPUSCULAR HGB CONC 35.3 g/dL (33.0-36.5); MEAN CORPUSCULAR VOLUME 97.4 FL (78-98); MEAN PLATELET VOLUME 7.9 FL (7.4-10.4); MONOCYTES # (AUTO) 0.8 X10'3 (0-0.9); MONOCYTES % (AUTO) 12.8 % (2-12); NEUTROPHILS # (AUTO) 3.9 X10'3 (1.8-7.7); NEUTROPHILS % (AUTO) 63.8 % (42-75); PLATELET COUNT 369 X10'3 (140-440); RED BLOOD COUNT 4.26 X10'6 (4.70-6.10); RED CELL DISTRIBUTION WIDTH 13.5 % (11.5-14.5); WHITE BLOOD COUNT 6.1 X10'3 (4.5-11.0)
[2020-10-05 17:16] LABS: ALANINE AMINOTRANSFERASE 71 U/L (12-78); ALBUMIN 3.2 G/DL (3.4-5.0); ALBUMIN/GLOBULIN RATIO 0.9 (1.1-1.5); ALKALINE PHOSPHATASE 97 IU/L (46-116); ANION GAP 10 (8-16); ASPARTATE AMINO TRANSFERASE 62 U/L (10-37); BILIRUBIN,TOTAL 0.5 MG/DL (0.1-1.0); BLOOD UREA NITROGEN 5 MG/DL (7-18); CALCIUM 9.1 MG/DL (8.5-10.1); CHLORIDE 90 MMOL/L (99-107); GLUCOSE 136 MG/DL (70-104); LIPASE 113 U/L (73-393); SODIUM 134 MMOL/L (135-145); TOTAL CARBON DIOXIDE 33.6 MMOL/L (24-32); TOTAL PROTEIN 6.6 G/DL (6.4-8.2); eGFR 79 ML/MIN
[2020-10-05 17:17] LABS: POTASSIUM 2.7 MMOL/L (3.5-5.1)
[2020-10-05] MEDS ORDERED: POTA20TA19 PO (17:20)
--- NOTE | 2020-10-05 17:20 | NUR ---
gait test , pt. ambulated without assistance gait was straight and stedy.
[2020-10-05] MEDS ORDERED: potassium Cl 20 mEq SR tablet PO STA (17:24)
[2020-10-05] MEDS ORDERED: ondansetron 4mg rapidly disintigrating tab PO ONE (17:25)
[2020-10-05 17:41] LABS: ETHANOL 0.183 GM/DL (0.0-0.010)
[2020-10-05 17:45] VITALS: BP 103/75
== END 2020-10-05 17:42 | disposition home or self-care (01) ==
LOC: ER 16:21
DX: R11.2 Nausea with vomiting, unspecified (principal); R07.89 Other chest pain; R10.10 Upper abdominal pain, unspecified; I10 Essential (primary) hypertension; F41.9 Anxiety disorder, unspecified; F10.10 Alcohol abuse, uncomplicated; F31.9 Bipolar disorder, unspecified; Z86.711 Personal history of pulmonary embolism; F15.90 Other stimulant use, unspecified, uncomplicated; Z88.8 Allergy status to other drugs, medicaments and biological substances; Z79.01 Long term (current) use of anticoagulants; Z79.899 Other long term (current) drug therapy; Y90.9 Presence of alcohol in blood, level not specified
CPT/HCPCS: 36415; 71045; 80053; 80320; 83690; 83880; 84484; 85025; 93005; 99285

== ENCOUNTER 2020-11-07 04:35 | Emergency (ER) | payer MEDICAID ==
[~2020-11-07] VITALS: Ht 175.3 cm; Wt 86.2 kg
[~2020-11-07 04:35] MED LIST changes: +ONDA4TAB6 PO
[2020-11-07 05:34] VITALS: BP 171/106
== END 2020-11-07 05:37 | disposition home or self-care (01) ==
LOC: ER 04:35
DX: F41.9 Anxiety disorder, unspecified (principal); R11.2 Nausea with vomiting, unspecified; R07.89 Other chest pain; I10 Essential (primary) hypertension; F31.9 Bipolar disorder, unspecified; F10.10 Alcohol abuse, uncomplicated; F15.10 Other stimulant abuse, uncomplicated; Z86.711 Personal history of pulmonary embolism; Z88.8 Allergy status to other drugs, medicaments and biological substances; Z79.01 Long term (current) use of anticoagulants; Z79.899 Other long term (current) drug therapy; Y90.9 Presence of alcohol in blood, level not specified
CPT/HCPCS: 93005; 99283

== ENCOUNTER 2021-01-29 04:56 | Emergency (ER) | payer MEDICAID ==
[~2021-01-29] VITALS: Ht 175.3 cm; Wt 81.8 kg
[~2021-01-29 04:56] MED LIST changes: +OLAN20TA3 PO; -OLAN5TAB26 PO; +OLAN5TAB75 PO
--- NOTE | 2021-01-29 05:19 | NUR ---
He just vomited into the sink and there is no blood. just clear and frothy.
[2021-01-29] MEDS ORDERED: phenobarbital inj 260 MG in normal saline 100ml IV soln 100 ML IV ONE (05:30)
[2021-01-29] MEDS ORDERED: normal saline 1000ML IV soln IVB ONE (05:30)
[2021-01-29] MEDS ORDERED: magnesium 2GM in 50ml NS 50 ML IV ONE (05:30)
[2021-01-29] MEDS ORDERED: thiamine inj. 100 MG in normal saline 100ml IV soln 99 ML IV ONE (05:30)
[2021-01-29] MEDS ORDERED: famotidine/PF 10 mg/ml inj IV ONE (05:35)
[2021-01-29] MEDS ORDERED: pantoprazole 40 MG vial IV ONE (05:35)
[2021-01-29 06:37] LABS: BASOPHILS % (AUTO) 0.4 % (0-1); EOSINOPHILS % (AUTO) 0.2 % (0-6); HEMATOCRIT 31.3 % (42.0-52.0); HEMOGLOBIN 10.2 g/dl (14.0-17.9); LYMPHOCYTES # (AUTO) 0.7 X10'3 (1.1-4.8); LYMPHOCYTES % (AUTO) 11.7 % (21-51); MEAN CORPUSCULAR HEMOGLOBIN 27.8 PG (27.0-31.0); MEAN CORPUSCULAR HGB CONC 32.5 g/dL (33.0-36.5); MEAN CORPUSCULAR VOLUME 85.5 FL (78-98); MEAN PLATELET VOLUME 7.2 FL (7.4-10.4); MONOCYTES # (AUTO) 0.6 X10'3 (0-0.9); MONOCYTES % (AUTO) 9.3 % (2-12); NEUTROPHILS % (AUTO) 78.4 % (42-75); PLATELET COUNT 459 X10'3 (140-440); RED BLOOD COUNT 3.66 X10'6 (4.70-6.10); RED CELL DISTRIBUTION WIDTH 17.7 % (11.5-14.5); WHITE BLOOD COUNT 6.3 X10'3 (4.5-11.0)
[2021-01-29] MEDS ORDERED: metoclopramide 5 mg/ml inj IV ONE (06:40)
[2021-01-29 06:45] LABS: ALANINE AMINOTRANSFERASE 28 U/L (12-78); ALBUMIN 2.8 G/DL (3.4-5.0); ALBUMIN/GLOBULIN RATIO 0.8 (1.1-1.5); ALKALINE PHOSPHATASE 105 IU/L (46-116); ANION GAP 15 (8-16); ASPARTATE AMINO TRANSFERASE 26 U/L (10-37); BILIRUBIN,TOTAL 0.2 MG/DL (0.1-1.0); BLOOD UREA NITROGEN 5 MG/DL (7-18); BUN/CREATININE RATIO 4.4 (5.4-32.0); CALCIUM 8.1 MG/DL (8.5-10.1); CHLORIDE 107 MMOL/L (99-107); CREATININE 1.14 MG/DL (0.60-1.10); ETHANOL 0.055 GM/DL (0.0-0.010); GLUCOSE 107 MG/DL (70-104); MAGNESIUM 1.9 MG/DL (1.5-2.4); POTASSIUM 3.1 MMOL/L (3.5-5.1); SODIUM 146 MMOL/L (135-145); TOTAL CARBON DIOXIDE 24.3 MMOL/L (24-32); TOTAL PROTEIN 6.4 G/DL (6.4-8.2); eGFR 68 ML/MIN
[2021-01-29] MEDS ORDERED: LORazepam 2 mg/ml vial IV ONE (07:15)
[2021-01-29] MEDS ORDERED: LORazepam 2 mg/ml vial ONE (07:30)
[2021-01-29] MEDS ORDERED: PANT20TA18 PO (07:34)
[2021-01-29] MEDS ORDERED: METO-292 PO (07:34)
[2021-01-29 09:06] VITALS: BP 155/93
== END 2021-01-29 09:08 | disposition home or self-care (01) ==
LOC: ER 04:57
DX: K29.20 Alcoholic gastritis without bleeding (principal); F10.239 Alcohol dependence with withdrawal, unspecified; F12.90 Cannabis use, unspecified, uncomplicated; R10.11 Right upper quadrant pain; R10.12 Left upper quadrant pain; R11.10 Vomiting, unspecified; R10.13 Epigastric pain; I10 Essential (primary) hypertension; F41.9 Anxiety disorder, unspecified; F31.9 Bipolar disorder, unspecified; F15.90 Other stimulant use, unspecified, uncomplicated; Z86.711 Personal history of pulmonary embolism; Z72.89 Other problems related to lifestyle; Z88.8 Allergy status to other drugs, medicaments and biological substances; Z79.899 Other long term (current) drug therapy
CPT/HCPCS: 36415; 71045; 80053; 80320; 82948; 83735; 85025; 93005; 96361; 96374; 96375; 99285; C9113; J2060; J2765; J3490; J7030

== ENCOUNTER 2021-02-01 04:22 | Emergency (ER) | payer MEDICAID ==
[~2021-02-01] VITALS: Ht 175.3 cm; Wt 81.8 kg
[~2021-02-01 04:22] MED LIST changes: +METO-292 PO; +PANT20TA18 PO
[2021-02-01 04:35] VITALS: BP 107/92
[2021-02-01 05:25] LABS: BASOPHILS # (AUTO) 0.1 X10'3 (0-0.2); BASOPHILS % (AUTO) 1.4 % (0-1); EOSINOPHILS % (AUTO) 0 % (0-6); HEMATOCRIT 34.5 % (42.0-52.0); HEMOGLOBIN 11.2 g/dl (14.0-17.9); LYMPHOCYTES # (AUTO) 1.1 X10'3 (1.1-4.8); LYMPHOCYTES % (AUTO) 24.6 % (21-51); MEAN CORPUSCULAR HEMOGLOBIN 27.9 PG (27.0-31.0); MEAN CORPUSCULAR HGB CONC 32.4 g/dL (33.0-36.5); MEAN CORPUSCULAR VOLUME 86.2 FL (78-98); MEAN PLATELET VOLUME 7.3 FL (7.4-10.4); MONOCYTES # (AUTO) 0.6 X10'3 (0-0.9); MONOCYTES % (AUTO) 12.2 % (2-12); NEUTROPHILS # (AUTO) 2.8 X10'3 (1.8-7.7); NEUTROPHILS % (AUTO) 61.8 % (42-75); PLATELET COUNT 525 X10'3 (140-440); RED CELL DISTRIBUTION WIDTH 17.5 % (11.5-14.5); WHITE BLOOD COUNT 4.6 X10'3 (4.5-11.0)
[2021-02-01 05:40] LABS: ALANINE AMINOTRANSFERASE 37 U/L (12-78); ALBUMIN 3.1 G/DL (3.4-5.0); ALBUMIN/GLOBULIN RATIO 0.9 (1.1-1.5); ALKALINE PHOSPHATASE 120 IU/L (46-116); ANION GAP 12 (8-16); ASPARTATE AMINO TRANSFERASE 51 U/L (10-37); BILIRUBIN,TOTAL 0.3 MG/DL (0.1-1.0); BLOOD UREA NITROGEN 1 MG/DL (7-18); BUN/CREATININE RATIO 0.9 (5.4-32.0); CALCIUM 8.2 MG/DL (8.5-10.1); CHLORIDE 105 MMOL/L (99-107); CREATININE 1.08 MG/DL (0.60-1.10); GLUCOSE 148 MG/DL (70-104); LIPASE 226 U/L (73-393); SODIUM 147 MMOL/L (135-145); TOTAL CARBON DIOXIDE 30.1 MMOL/L (24-32); TOTAL PROTEIN 6.7 G/DL (6.4-8.2); eGFR 72 ML/MIN
[2021-02-01] MEDS ORDERED: potassium Cl 20 mEq SR tablet PO STA (06:00)
== END 2021-02-01 06:09 | disposition left against medical advice (07) ==
LOC: ER 04:22
DX: K29.70 Gastritis, unspecified, without bleeding (principal); K92.0 Hematemesis; E87.6 Hypokalemia; Q66.89 Other specified congenital deformities of feet; F15.90 Other stimulant use, unspecified, uncomplicated; I10 Essential (primary) hypertension; Z72.89 Other problems related to lifestyle; Z87.01 Personal history of pneumonia (recurrent)
CPT/HCPCS: 36415; 71045; 80053; 83690; 85025; 93005; 99285

== ENCOUNTER 2022-06-17 13:41 | Emergency (ER) | payer MEDICAID ==
[~2022-06-17] VITALS: Ht 175.3 cm; Wt 79.0 kg
[2022-06-17 14:07] VITALS: BP 115/74
[2022-06-17 14:12] LABS: BASOPHILS % (AUTO) 0.6 % (0-1); EOSINOPHILS % (AUTO) 0.3 % (0-6); HEMATOCRIT 38.5 % (42.0-52.0); HEMOGLOBIN 12.8 g/dl (14.0-17.9); LYMPHOCYTES # (AUTO) 0.5 X10'3 (1.1-4.8); LYMPHOCYTES % (AUTO) 12.2 % (21-51); MEAN CORPUSCULAR HEMOGLOBIN 28.8 PG (27.0-31.0); MEAN CORPUSCULAR HGB CONC 33.2 g/dL (33.0-36.5); MEAN CORPUSCULAR VOLUME 86.8 FL (78-98); MEAN PLATELET VOLUME 8.3 FL (7.4-10.4); MONOCYTES # (AUTO) 0.6 X10'3 (0-0.9); MONOCYTES % (AUTO) 15.2 % (2-12); NEUTROPHILS # (AUTO) 2.8 X10'3 (1.8-7.7); NEUTROPHILS % (AUTO) 71.7 % (42-75); PLATELET COUNT 258 X10'3 (140-440); RED BLOOD COUNT 4.43 X10'6 (4.70-6.10); RED CELL DISTRIBUTION WIDTH 14.2 % (11.5-14.5); WHITE BLOOD COUNT 3.9 X10'3 (4.5-11.0)
[2022-06-17 14:25] LABS: ALANINE AMINOTRANSFERASE 37 U/L (12-78); ALBUMIN 4.3 G/DL (3.4-5.0); ALBUMIN/GLOBULIN RATIO 1.3 (1.1-1.5); ALKALINE PHOSPHATASE 94 IU/L (46-116); ANION GAP 10 (8-16); ASPARTATE AMINO TRANSFERASE 29 U/L (10-37); BILIRUBIN,TOTAL 0.4 MG/DL (0.1-1.0); BLOOD UREA NITROGEN 12 MG/DL (7-18); BUN/CREATININE RATIO 9.2 (5.4-32.0); CHLORIDE 100 MMOL/L (99-107); CREATININE 1.31 MG/DL (0.60-1.10); GLUCOSE 104 MG/DL (70-104); POTASSIUM 3.8 MMOL/L (3.5-5.1); SODIUM 134 MMOL/L (135-145); TOTAL CARBON DIOXIDE 24.4 MMOL/L (24-32); TOTAL PROTEIN 7.5 G/DL (6.4-8.2); eGFR 58 ML/MIN
[2022-06-17 14:33] LABS: MAGNESIUM 2.2 MG/DL (1.5-2.4)
== END 2022-06-17 16:32 | disposition home or self-care (01) ==
LOC: ER 13:42
DX: R07.89 Other chest pain (principal); F41.9 Anxiety disorder, unspecified; I10 Essential (primary) hypertension; F31.9 Bipolar disorder, unspecified; F15.90 Other stimulant use, unspecified, uncomplicated; Z72.89 Other problems related to lifestyle; Z88.8 Allergy status to other drugs, medicaments and biological substances; Z79.01 Long term (current) use of anticoagulants; Z79.899 Other long term (current) drug therapy
CPT/HCPCS: 36415; 71045; 80053; 83735; 83880; 84484; 85025; 93005; 93970; 99285

== ENCOUNTER 2022-06-26 04:48 | Emergency (ER) | payer MEDICAID ==
[~2022-06-26] VITALS: Ht 175.3 cm; Wt 75.0 kg
[2022-06-26] MEDS ORDERED: LORazepam 1 MG tablet PO ONE (05:05)
[2022-06-26 05:51] VITALS: BP 135/80
== END 2022-06-26 05:52 | disposition home or self-care (01) ==
LOC: ER 04:48
DX: F41.0 Panic disorder [episodic paroxysmal anxiety] (principal); I10 Essential (primary) hypertension; F41.9 Anxiety disorder, unspecified; F31.9 Bipolar disorder, unspecified; F15.90 Other stimulant use, unspecified, uncomplicated; Z72.89 Other problems related to lifestyle; Z88.8 Allergy status to other drugs, medicaments and biological substances; Z79.899 Other long term (current) drug therapy
CPT/HCPCS: 93005; 99283

== ENCOUNTER 2022-09-14 19:44 | Emergency (ER) | payer MEDICAID ==
[~2022-09-14] VITALS: Ht 175.3 cm; Wt 79.5 kg
[2022-09-14 19:59] LABS: BASOPHILS # (AUTO) 0.1 X10'3 (0-0.2); BASOPHILS % (AUTO) 0.7 % (0-1); EOSINOPHILS # (AUTO) 0.1 X10'3 (0-0.9); EOSINOPHILS % (AUTO) 0.9 % (0-6); HEMATOCRIT 42.6 % (42.0-52.0); HEMOGLOBIN 14.4 g/dl (14.0-17.9); LYMPHOCYTES # (AUTO) 1.1 X10'3 (1.1-4.8); MEAN CORPUSCULAR HEMOGLOBIN 29.4 PG (27.0-31.0); MEAN CORPUSCULAR HGB CONC 33.8 g/dL (33.0-36.5); MEAN CORPUSCULAR VOLUME 86.8 FL (78-98); MEAN PLATELET VOLUME 8.1 FL (7.4-10.4); MONOCYTES # (AUTO) 0.5 X10'3 (0-0.9); NEUTROPHILS # (AUTO) 6.9 X10'3 (1.8-7.7); NEUTROPHILS % (AUTO) 79.4 % (42-75); PLATELET COUNT 398 X10'3 (140-440); RED BLOOD COUNT 4.91 X10'6 (4.70-6.10); RED CELL DISTRIBUTION WIDTH 14.7 % (11.5-14.5); WHITE BLOOD COUNT 8.7 X10'3 (4.5-11.0)
[2022-09-14 20:14] LABS: ALANINE AMINOTRANSFERASE 36 U/L (12-78); ALBUMIN 4.4 G/DL (3.4-5.0); ALBUMIN/GLOBULIN RATIO 1.2 (1.1-1.5); ALKALINE PHOSPHATASE 97 IU/L (46-116); ANION GAP 12 (8-16); ASPARTATE AMINO TRANSFERASE 21 U/L (10-37); BILIRUBIN,TOTAL 0.6 MG/DL (0.1-1.0); BLOOD UREA NITROGEN 13 MG/DL (7-18); BUN/CREATININE RATIO 9.2 (10.0-20.0); CALCIUM 9.5 MG/DL (8.5-10.1); CHLORIDE 99 MMOL/L (99-107); CREATININE 1.42 MG/DL (0.60-1.10); GLUCOSE 121 MG/DL (70-104); POTASSIUM 4.1 MMOL/L (3.5-5.1); SODIUM 135 MMOL/L (135-145); TOTAL CARBON DIOXIDE 24.5 MMOL/L (24-32); eGFR 52 ML/MIN
[2022-09-14 20:19] LABS: MAGNESIUM 1.9 MG/DL (1.5-2.4)
[2022-09-14] MEDS ORDERED: ALPRAZolam 0.25mg tablet PO ONE (21:45)
[2022-09-14 21:55] VITALS: BP 111/67
[2022-09-14] MEDS ORDERED: ALPRAZolam 0.5mg tablet PO ONE (22:05)
== END 2022-09-14 23:10 | disposition home or self-care (01) ==
LOC: ER 19:45
DX: F41.9 Anxiety disorder, unspecified (principal); R07.89 Other chest pain; Z88.8 Allergy status to other drugs, medicaments and biological substances
CPT/HCPCS: 36415; 71045; 80053; 83735; 83880; 84484; 85025; 93005; 99285

== ENCOUNTER 2023-09-21 01:45 | Emergency (ER) | payer MEDICAID ==
[~2023-09-21] VITALS: Ht 175.3 cm; Wt 80.0 kg
[2023-09-21 01:48] VITALS: TEMP 98.2
[2023-09-21] MEDS: LORazepam 1 MG tablet PO ONE (03:48)
[2023-09-21 03:56] LABS: BILIRUBIN,URINE NEGATIVE (Neg); CLARITY,URINE CLEAR (Clear); COLOR,URINE YELLOW (Yellow); GLUCOSE, URINE NEGATIVE (Neg); KETONES,URINE NEGATIVE (Neg); LEUKOCYTE ESTERASE ,URINE NEGATIVE (Neg); NITRITES, URINE NEGATIVE (Neg); OCCULT BLOOD,URINE NEGATIVE (Neg); PROTEIN,URINE NEGATIVE (Neg); UROBILINOGEN,URINE 0.2 E.U/dL (0.2-1.0)
[2023-09-21 04:17] LABS: UA COLLECTION TYPE CLN CATCH MIDSTREAM
[2023-09-21 05:30] VITALS: BP 111/73; PULSE 64; RESP 17; O2SAT 96
== END 2023-09-21 05:40 | disposition home or self-care (01) ==
LOC: ER 01:45
DX: S39.013A Strain of muscle, fascia and tendon of pelvis, initial encounter (principal); F41.9 Anxiety disorder, unspecified; I10 Essential (primary) hypertension; F15.90 Other stimulant use, unspecified, uncomplicated; Z88.8 Allergy status to other drugs, medicaments and biological substances; Z79.899 Other long term (current) drug therapy; X58.XXXA Exposure to other specified factors, initial encounter; Y93.89 Activity, other specified; Y92.89 Other specified places as the place of occurrence of the external cause; Y99.8 Other external cause status
CPT/HCPCS: 81003; 99283

== ENCOUNTER 2024-02-11 15:34 | Emergency (ER) | payer MEDICAID ==
[~2024-02-11] VITALS: Ht 162.6 cm; Wt 79.2 kg
[~2024-02-11 15:34] MED LIST changes: -NALT50TA PO; +NALT50TA5 PO
[2024-02-11 16:02] LABS: EOSINOPHILS # (AUTO) 0.1 X10'3 (0-0.9); HEMOGLOBIN 14.1 g/dl (14.0-17.9); WHITE BLOOD COUNT 4.2 X10'3 (4.5-11.0)
[2024-02-11 16:04] LABS: BASOPHILS % (AUTO) 0.6 % (0-1); HEMATOCRIT 41.9 % (42.0-52.0); LYMPHOCYTES # (AUTO) 0.8 X10'3 (1.1-4.8); LYMPHOCYTES % (AUTO) 17.8 % (21-51); MEAN CORPUSCULAR HEMOGLOBIN 29.8 PG (27.0-31.0); MEAN CORPUSCULAR HGB CONC 33.5 g/dL (33.0-36.5); MEAN CORPUSCULAR VOLUME 88.7 FL (78-98); MEAN PLATELET VOLUME 7.8 FL (7.4-10.4); MONOCYTES # (AUTO) 0.4 X10'3 (0-0.9); MONOCYTES % (AUTO) 8.3 % (2-12); NEUTROPHILS % (AUTO) 70.3 % (42-75); PLATELET COUNT 308 X10'3 (140-440); RED BLOOD COUNT 4.72 X10'6 (4.70-6.10); RED CELL DISTRIBUTION WIDTH 14.1 % (11.5-14.5)
[2024-02-11 16:05] LABS: ALANINE AMINOTRANSFERASE 45 U/L (12-78); ALBUMIN 3.8 G/DL (3.4-5.0); ALBUMIN/GLOBULIN RATIO 1.3 (1.1-1.5); ALKALINE PHOSPHATASE 79 IU/L (46-116); ANION GAP 5 (8-16); ASPARTATE AMINO TRANSFERASE 38 U/L (10-37); BILIRUBIN,TOTAL 0.3 MG/DL (0.1-1.0); BLOOD UREA NITROGEN 10 MG/DL (7-18); BUN/CREATININE RATIO 8.5 (10.0-20.0); CALCIUM 9.2 MG/DL (8.5-10.1); CHLORIDE 104 MMOL/L (99-107); CREATININE 1.18 MG/DL (0.60-1.10); GLUCOSE 112 MG/DL (70-104); POTASSIUM 4.6 MMOL/L (3.5-5.1); SODIUM 138 MMOL/L (135-145); TOTAL CARBON DIOXIDE 29.3 MMOL/L (24-32); TOTAL PROTEIN 6.8 G/DL (6.4-8.2); eCRCL 61 ML/MIN; eGFR 65 ML/MIN
[2024-02-11 16:13] LABS: PRO BRAIN NATRIURETIC PEPTIDE 60 PG/ML (0-125)
[2024-02-11] MEDS ORDERED: AMLO5TAB16 PO (18:02)
[2024-02-11] MEDS ORDERED: GUAN1TAB PO (18:02)
[2024-02-11] MEDS ORDERED: CEFD300C17 (18:02)
[2024-02-11] MEDS ORDERED: ATOR20TA66 PO (18:02)
[2024-02-11] MEDS ORDERED: METO-384 PO (18:02)
[2024-02-11] MEDS ORDERED: HYDR50TA65 PO (18:02)
[2024-02-11] MEDS ORDERED: TERB250T89 PO (18:02)
[2024-02-11] MEDS ORDERED: GABA300T28 (18:02)
[2024-02-11] MEDS ORDERED: GABAPENTIN (18:02)
[2024-02-11] MEDS ORDERED: LEVE500T PO (18:02)
[2024-02-11] MEDS: LORazepam 2 mg/ml vial IM ONE (18:03)
[2024-02-11 19:01] VITALS: BP 129/87; PULSE 68; RESP 16; TEMP 98.2; O2SAT 96
== END 2024-02-11 19:04 | disposition home or self-care (01) ==
LOC: ER 15:35
DX: R07.9 Chest pain, unspecified (principal); I10 Essential (primary) hypertension; F41.9 Anxiety disorder, unspecified; F31.9 Bipolar disorder, unspecified; F28 Other psychotic disorder not due to a substance or known physiological condition; F10.90 Alcohol use, unspecified, uncomplicated; F15.90 Other stimulant use, unspecified, uncomplicated; Z86.711 Personal history of pulmonary embolism; Z88.8 Allergy status to other drugs, medicaments and biological substances; Z79.899 Other long term (current) drug therapy
CPT/HCPCS: 36415; 71045; 80053; 83880; 84484; 85025; 93005; 96372; 99285; J2060